=== PATIENT | male | born 1950 | race Caucasian/White ===

== ENCOUNTER 2019-11-22 03:58 | Inpatient (IN) | payer MEDICARE, MEDICAID, SELFPAY ==
[2019-11-22] VITALS (22 sets, daily range): BP systolic 92–122; BP diastolic 60–78; PULSE 93–99; RESP 16–22; TEMP 36.2–37.4; O2SAT 95–99; BMI 22.4
--- NOTE | 2019-11-22 04:03 | XRR_ITS ---
PROCEDURE INFORMATION: Exam: XR Chest, 1 View Exam date and time: 11/22/2019 5:02 AM Age: 69 years old Clinical indication: Chest pain; Type not specified; Additional info: Cough TECHNIQUE: Imaging protocol: XR of the chest Views: 1 view. COMPARISON: CR Chest 1 [place] [id number] 02/20/2018 10:08 AM FINDINGS: Lungs: Hyperinflation. Areas of interstitial thickening of the lower lungs which could be on a chronic basis. Acute area of pneumonitis would be difficult to exclude. Pleural space: Pleural thickening or bilateral pleural effusions. Heart/Mediastinum: The heart size is accentuated. Bones/joints: Osteopenia. Soft tissues: No overt edema. XR/XR chest 1V portable [id number] IMPRESSION: 1. Hyperinflation. 2. Likely partial chronic pleural-parenchymal and interstitial changes of the lower lungs. Accentuated or superimposed areas of acute pneumonitis would not be entirely excluded. 3. Pleural thickening or bilateral pleural effusions. 4. The overall pulmonary changes are without significant interval change since 2017.
--- NOTE | 2019-11-22 04:09 | ECG_ITS ---
Measurements Intervals [place] Rate: 97 P: 35 NV: 169 QRS: 51 QRSD: 88 T: 60 QT: 363 QTc: 462 SINUS RHYTHM POSSIBLE LEFT ATRIAL ENLARGEMENT [-0.1mV P WAVE IN V1/V2] SEPTAL MYOCARDIAL INFARCTION , OF INDETERMINATE AGE [40+ ms Q WAVE IN V1/V2] Compared to ECG 02/20/2018 09:34:40 Myocardial infarct finding now present Electronically Signed On 11-22-2019 18:09:59 CDT by Cj Guzmán M.D. [id number]
--- NOTE | 2019-11-22 04:14 | ED_ITS ---
HPI - General Adult General: Chief complaint: Chest Pain Stated complaint: CP Time Seen by Provider: 11/22/19 04:03 History of Present Illness: HPI narrative: Mr. Ortiz is a 69-year-old male who comes in complaining of chest pain and shortness of breath. He states he is felt this way for the past 2 weeks intermittently. He cannot describe his chest pain other than it hurts . Patient denies any fever, he denies a cough, he states that he is currently on hospice for his COPD. Patient states he just could not get relief tonight and that is why he presented here to the ER. Associated symptoms: Reports chest pain and dyspnea; Deny confusion, diaphoresis, headache(s), malaise, nausea, rash, palpitations, syncope or vomiting Review of Systems General: Reports: other (negative unless marked) Const: Denies: fever, chills, body aches, fatigue, malaise or diaphoresis Eyes: Denies: change in vision or blurry vision ENMT: Denies: throat pain, painful swallowing, hoarseness, ear pain, ear discharge, Change in hearing or nasal discharge Card: Reports: chest pain; Denies: palpitations, irregular heart rhythm, syncope, pre-syncope, shortness of breath on exertion or shortness of breath when lying down Resp: Reports: shortness of breath; Denies: productive cough, non-productive cough, wheezing, coughing up blood or chest congestion GI: Denies: abdominal pain, nausea, vomiting, vomiting blood, coffee grounds in vomit, diarrhea, constipation, cramping, blood in stool or black tarry stool : Denies: flank pain, difficulty urinating, painful urination, urinary frequency, urinary urgency, decreased urine ouput, urinary incontinence or blood in urine Musc: Denies: neck pain, back pain, extremity pain, extremity swelling, joint pain, joint swelling, joint warmth or joint stiffness Skin/Breast: Denies: rash, skin tenderness or yellow skin Neuro: Denies: headache, numbness in extremities, weakness in extremities, changes in sensation, lack of coordination, difficulty walking, dizziness, vertigo or confusion Endo: Denies: excessive thirst, tired all the time, cold intolerance, excessive sweating, flushing or hot flashes Lyle/Lymph: Denies: easy bruising, easy bleeding, petechiae or enlarged lymph nodes All/Imm: Denies: hives, throat swelling, tongue swelling, facial swelling or acute wheezing PFSH ED PFSH: Medical History CKD (chronic kidney disease) Congestive heart failure COPD (chronic obstructive pulmonary disease) CVA (cerebral vascular accident) Diabetes mellitus type 2 in nonobese Hypertension Obstructive sleep apnea Rheumatoid arthritis Social History Smoking and tobacco status: former smoker Physical Exam Const: COMMON NORMALS: oriented x3, no limitations, healthy appearing and well nourished EXAM LIMITATIONS: no altered mental status GENERAL APPEARANCE: cooperative, well kempt and well developed ORIENTATION/CONSCIOUSNESS: Yes awake HENMT: COMMON NORMALS: normocephalic, head/scalp atraumatic, hearing grossly normal bilaterally, external ears normal, EAC's normal, external nose normal and moist oral mucous membranes HEAD & SCALP: normal to inspection, normocephalic and atraumatic FACE & SINUS: normal facial exam and face symmetric NOSE: external nose normal and nares normal EXTERNAL EAR: Yes external ears normal EXTERNAL AUDITORY CANAL: EAC's normal MOUTH: oral and palatal mucosa normal and tongue normal Eye: COMMON NORMALS: PERRL, EOMs intact bilaterally, conjunctivae normal and no scleral icterus GENERAL EYE: normal appearance of both eyes and normal light reflex CONJUNCTIVA: Yes conjunctivae normal SCLERA: sclerae normal CORNEA: Yes corneas normal PUPIL: Yes PERRL DIRECT OPHTHALMOSCOPY: Yes normal light reflex Neck/C-Spine: COMMON NORMALS: full ROM, no lymphadenopathy, supple, no meningeal signs and no JVD GENERAL: Yes normal visual inspection and Yes trachea midline CERVICAL SPINE: Yes cervical ROM normal Chest: COMMONS NORMALS: inspection of chest normal and palpation of chest normal Resp: EFFORT & INSPECTION: Yes uses accessory muscles and Yes paradoxical thoraco-abdominal movements AUSCULTATION: rhonchi and wheezes Cardio: COMMON NORMALS: no JVD, regular rate, regular rhythm, S1 normal heart sound, S2 normal heart sound, no gallops, no clicks, no murmurs and no rub JUGULAR VENOUS DISTENTION: no JVD RATE: regular rate RHYTHM: regular rhythm HEART SOUNDS: S1 normal and S2 normal GI: COMMON NORMALS: soft to palpation, non-tender, no hepatosplenomegaly and no masses INSPECTION: Yes normal to inspection PALPATION: Yes soft and Yes no hepatosplenomegaly : COMMON NORMALS: Yes no CVA tenderness BLADDER/KIDNEY EXAM: Yes no CVA tenderness Back/Pelvis: COMMON NORMALS: no CVA tenderness, thoracic and lumbar spine normal to inspection, no thoracic nor lumbar tenderness and thoraco-lumbar ROM normal Extremity: COMMON NORMALS: normal to inspection, full ROM, normal capillary refill, no joint enlargement, no clubbing, cyanosis or edema and no calf tenderness Neuro: COMMON NORMALS: oriented x3, CN's II-XII intact bilaterally, moves all extremities, no focal motor deficits and no sensory deficits noted MENINGEAL SIGNS: Yes no meningeal signs Psych: COMMON NORMALS: mental status grossly normal, thought process normal, cooperative, affect normal, speech normal and activity/motor behavior normal APPEARANCE: Yes well kempt SPEECH: Yes normal speech THOUGHT PROCESS: normal thought process Skin: COMMON NORMALS: no rashes or lesions noted, skin turgor normal, no jaundice, no petechiae and no mottling GENERAL SKIN EXAM: no rashes or lesions noted and turgor normal Course Vital Signs: Vital signs: Vital Signs Temperature 97.5 F L 11/22/19 04:24 Pulse Rate 98 11/22/19 04:34 Respiratory Rate 20 H 11/22/19 04:34 Blood Pressure 101/76 11/22/19 04:24 Pulse Oximetry 99 11/22/19 04:34 [facility] - General Adult Lab Data: Labs: Lab Results 11/22/19 Range/Units 04:20 WBC 6.0 (4.0-10.0) 10^3/ uL RBC 4.03 L (4.1-5.3) 10^6/u L Hgb 11.3 L (11.7-16.6) g/dL Hct 36.9 L (42.0-52.0) % MCV 91.6 (80-94) fL MCH 28.0 (28.0-34.0) pg MCHC 30.6 (30.0-36.0) g/dL RDW 15.0 (12.1-15.1) % Plt Count 305 (130-400) 10^3/c mm MPV 9.2 (7.4-10.4) fL Neut % (Auto) 63.9 % Lymph % (Auto) 17.2 % [place] % (Auto) 15.2 % Eos % (Auto) 2.3 % Baso % (Auto) 0.7 % Neut # (Auto) 3.8 (1.8-7.7) 10^3/u L Lymph # (Auto) 1.0 (0.8-4.8) 10^3/u L [place] # (Auto) 0.9 (0.2-0.9) 10^3/u L Eos # (Auto) 0.1 (0.0-0.8) 10^3/u L Baso # (Auto) 0.0 (0.0-0.1) 10^3/u L Nucleated RBC % (a uto) 0 % Nucleated RBCs # 0.0 /100WBC Imaging Data^: CXR: My impression: Bilateral pleural effusions. Atelectasis versus bilateral lower lobe infiltrates. EKG Data^: EKG 1: Attestation: I personally reviewed and interpreted this EKG as follows: EKG interpretation date: 11/22/19 EKG interpretation time: 04:15 Interpretation: Normal sinus rhythm at 97 beats a minute, wandering baseline artifact. No acute ST or T wave changes. Coding Level of Care Code ED Rv Mechanic for Eduin Selby
[2019-11-22 04:17] LABS: ABG PCO2 35.4 mmHg (35-45); Arterial Blood Gas Hematocrit 32.4 % (42-52); Base Excess ABG 10.4 mmol/L (-2.0-2.0); Blood Gas Allen Test Pos; Blood Gas Sample Site Brachial, right; Blood Gas Sample Type Arterial; Oxygen Device NC
[2019-11-22] MEDS: ipratropium-albuterol 3 mL Neb INHALATION (04:27)
[2019-11-22 04:36] LABS: Basophils % 0.7 %; Eosinophils # 0.1 10^3/uL (0.0-0.8); Eosinophils % 2.3 %; Hematocrit 36.9 % (42.0-52.0); Hemoglobin 11.3 g/dL (11.7-16.6); Lymphocytes % 17.2 %; Mean Corpuscular HGB Conc 30.6 g/dL (30.0-36.0); Mean Corpuscular Volume 91.6 fL (80-94); Mean Platelet Volume 9.2 fL (7.4-10.4); Monocytes # 0.9 10^3/uL (0.2-0.9); Monocytes % 15.2 %; Neutrophils # 3.8 10^3/uL (1.8-7.7); Neutrophils % 63.9 %; Nucleated Red Blood Cells % 0 %; Platelet Count 305 10^3/cmm (130-400); Red Blood Count 4.03 10^6/uL (4.1-5.3)
[2019-11-22] MEDS: aspirin 81 mg Chew Tablet 324 MG PO (04:49)
[2019-11-22] MEDS: ondansetron 2 mg/ML SDV 2 mL 4 MG IVP (04:50)
[2019-11-22] MEDS: nitroglycerin 0.4 mg sublingual Tablet SUBLINGUAL ×3 (04:50→05:01)
[2019-11-22 05:10] LABS: Alanine Aminotransferase 15 U/L (0-41); Alkaline Phosphatase 75 IU/L (40-130); Anion Gap 23.5 (5-19); Aspartate Amino Transferase 39 U/L (0-40); Blood Urea Nitrogen 35 mg/dL (8-23); Calcium 9.9 mg/dL (8.5-10.5); Carbon Dioxide 32 mmol/L (22-29); Chloride 86 mmol/L (98-107); Globulin 3.8 g/dL (1.3-4.6); Glomerular Filtration Rate 37.7 mL/min (90-130); Glucose 111 mg/dL (65-115); Lipase 70 U/L (13-60); Magnesium 2.2 mg/dL (1.7-2.3); NT Pro B Type Natriuretic Pept 806 pg/mL (0-125); Osmolality Calculated 284 mOsm/kg (285-295); Potassium 3.5 mmol/L (3.5-5.1); Sodium 138 mmol/L (136-145); Total Bilirubin 0.3 mg/dL (0.15-1.2); Total Protein 8.8 g/dL (6.6-8.7)
[2019-11-22 05:13] LABS: Troponin(5th) Baseline 58 ng/mL (0-15)
--- NOTE | 2019-11-22 05:53 | PC.NURSE ---
Date written on Howard catheter from Pt is dated - 09/18/2019 Howard catheter changed to new unit.
[2019-11-22] MEDS: doxycycline 100 mg Tablet 200 MG PO (05:57)
[2019-11-22] MEDS: predniSONE 20 mg Tablet 60 MG PO (05:58)
--- NOTE | 2019-11-22 06:09 | ECG_ITS ---
Measurements Intervals [place] Rate: 101 P: CT: 0 QRS: 50 QRSD: 102 T: -53 QT: 374 QTc: 487 ATRIAL FIBRILLATION WITH RAPID VENTRICULAR RESPONSE NONSPECIFIC T-WAVE ABNORMALITY Compared to ECG 02/20/2018 09:34:40 T-wave abnormality now present Electronically Signed On 11-22-2019 18:13:30 CDT by Cj Guzmán M.D. [id number]
[2019-11-22 07:11] LABS: Bilirubin Urine Neg (NEGATIVE); Blood Urine 2+ (Negative); Glucose Urine UA Norm (Normal); Ketones Urine Negative (Negative); Leukocyte Esterase Urine 2+ (Negative); Nitrate Urine Positive (Negative); Protein Urine Neg (Negative); RBC Urine 15-25 /hpf (0-2); Urine Appearance Cloudy (CLEAR); Urine Color Yellow (Yellow); Urobilinogen Urine Norm (Negative); WBC Urine 80-100 /hpf (0-5); pH Urine 7 (5-7)
[2019-11-22 07:12] LABS: Add Urine Culture? Yes; Bacteria Urine 3+; Squamous Epithelial Cell Urine 0-4 (0-5)
--- NOTE | 2019-11-22 07:31 | PC.NURSE ---
Patient attempting to void in urinal at this time after li removal.
[2019-11-22 07:32] LABS: Troponin 5 2HR 52.46 ng/mL (0-15); Troponin 5 2HR Delta -5.54 ABS# (0-10)
--- NOTE | 2019-11-22 07:42 | W.ED.CHESTPA ---
HPI - Chest Pain General: Chief Complaint: Chest Pain Stated Complaint: CP Time Seen by Provider: 11/22/19 04:03 History of Present Illness: HPI narrative: I assumed care of this patient at shift change. Patient's laboratory data indicates a significant urinary tract infection. Patient will be admitted to the hospital for IV antibiotics. Pt is being admitted for the treatment of the UTI. [facility] ED PFSH: Medical History CKD (chronic kidney disease) Congestive heart failure COPD (chronic obstructive pulmonary disease) CVA (cerebral vascular accident) Diabetes mellitus type 2 in nonobese Hypertension Obstructive sleep apnea Rheumatoid arthritis Social History Smoking and tobacco status: former smoker Course Vital Signs: Vital signs: Vital Signs Temperature 97.5 F L 11/22/19 04:24 Pulse Rate 98 11/22/19 04:34 Respiratory Rate 20 H 11/22/19 04:34 Blood Pressure 96/60 11/22/19 05:50 Pulse Oximetry 96 11/22/19 05:50 MDM - Chest Pain Lab Data: Labs: Lab Results 11/22/19 11/22/19 11/22/19 Range/Units 04:20 04:20 04:20 WBC 6.0 (4.0-10.0) 10^3/ uL RBC 4.03 L (4.1-5.3) 10^6/u L Hgb 11.3 L (11.7-16.6) g/dL Hct 36.9 L (42.0-52.0) % MCV 91.6 (80-94) fL MCH 28.0 (28.0-34.0) pg MCHC 30.6 (30.0-36.0) g/dL RDW 15.0 (12.1-15.1) % Plt Count 305 (130-400) 10^3/c mm MPV 9.2 (7.4-10.4) fL Neut % (Auto) 63.9 % Lymph % (Auto) 17.2 % [place] % (Auto) 15.2 % Eos % (Auto) 2.3 % Baso % (Auto) 0.7 % Neut # (Auto) 3.8 (1.8-7.7) 10^3/u L Lymph # (Auto) 1.0 (0.8-4.8) 10^3/u L [place] # (Auto) 0.9 (0.2-0.9) 10^3/u L Eos # (Auto) 0.1 (0.0-0.8) 10^3/u L Baso # (Auto) 0.0 (0.0-0.1) 10^3/u L Nucleated RBC % (a uto) 0 % Nucleated RBCs # 0.0 /100WBC PT 14.50 H (10.5-13.3) SECO NDS INR 1.10 (0.8-1.2) Sodium 138 (136-145) mmol/L Potassium 3.5 (3.5-5.1) mmol/L Chloride 86 L (98-107) mmol/L Carbon Dioxide 32 H (22-29) mmol/L Anion Gap 23.5 H (5-19) BUN 35 H (8-23) mg/dL Creatinine 1.8 H (0.7-1.2) mg/dL GFR Calculation 37.7 L (90-130) mL/min Glucose 111 (65-115) mg/dL Calculated Osmolal ity 284 L (285-295) mOsm/k g Lactic Acid (0.5-2.2) mmol/L Calcium 9.9 (8.5-10.5) mg/dL Magnesium 2.2 (1.7-2.3) mg/dL Total Bilirubin 0.3 (0.15-1.2) mg/dL AST 39 (0-40) U/L ALT 15 (0-41) U/L Alkaline Phosphata se 75 (40-130) IU/L Troponin T Baselin e (0-15) ng/mL Troponin T 120 Min [place] (0-15) ng/mL Delta Troponin T (0-10) ABS# NT-Pro-B Natriuret Pep 806 H (0-125) pg/mL Total Protein 8.8 H (6.6-8.7) g/dL Albumin 5.0 (3.5-5.2) g/dL Globulin 3.8 (1.3-4.6) g/dL Lipase 70 H (13-60) U/L Urine Color (Yellow) Urine Appearance (CLEAR) Urine pH (5-7) Ur Specific Gravit y (1.005-1.030) Urine Protein (Negative) Urine Glucose (UA) (Normal) Urine Ketones (Negative) Urine Blood (Negative) Urine Nitrate (Negative) Urine Bilirubin (NEGATIVE) Urine Urobilinogen (Negative) mg/dL Ur Leukocyte Shea ase (Negative) Urine RBC (0-2) /hpf Urine WBC (0-5) /hpf Ur Squamous Epith Cells (0-5) Urine Bacteria (NONE) 11/22/19 11/22/19 11/22/19 Range/Units 04:20 06:00 07:03 WBC (4.0-10.0) 10^3/ uL RBC (4.1-5.3) 10^6/u L Hgb (11.7-16.6) g/dL Hct (42.0-52.0) % MCV (80-94) fL MCH (28.0-34.0) pg MCHC (30.0-36.0) g/dL RDW (12.1-15.1) % Plt Count (130-400) 10^3/c mm MPV (7.4-10.4) fL Neut % (Auto) % Lymph % (Auto) % [place] % (Auto) % Eos % (Auto) % Baso % (Auto) % Neut # (Auto) (1.8-7.7) 10^3/u L Lymph # (Auto) (0.8-4.8) 10^3/u L [place] # (Auto) (0.2-0.9) 10^3/u L Eos # (Auto) (0.0-0.8) 10^3/u L Baso # (Auto) (0.0-0.1) 10^3/u L Nucleated RBC % (a uto) % Nucleated RBCs # /100WBC PT (10.5-13.3) SECO NDS INR (0.8-1.2) Sodium (136-145) mmol/L Potassium (3.5-5.1) mmol/L Chloride (98-107) mmol/L Carbon Dioxide (22-29) mmol/L Anion Gap (5-19) BUN (8-23) mg/dL Creatinine (0.7-1.2) mg/dL GFR Calculation (90-130) mL/min Glucose (65-115) mg/dL Calculated Osmolal ity (285-295) mOsm/k g Lactic Acid 2.1 (0.5-2.2) mmol/L Calcium (8.5-10.5) mg/dL Magnesium (1.7-2.3) mg/dL Total Bilirubin (0.15-1.2) mg/dL AST (0-40) U/L ALT (0-41) U/L Alkaline Phosphata se (40-130) IU/L Troponin T Baselin e 58 H (0-15) ng/mL Troponin T 120 Min [place] (0-15) ng/mL Delta Troponin T (0-10) ABS# NT-Pro-B Natriuret Pep (0-125) pg/mL Total Protein (6.6-8.7) g/dL Albumin (3.5-5.2) g/dL Globulin (1.3-4.6) g/dL Lipase (13-60) U/L Urine Color Yellow (Yellow) Urine Appearance Cloudy (CLEAR) Urine pH 7 (5-7) Ur Specific Gravit y 1.000 L (1.005-1.030) Urine Protein Neg (Negative) Urine Glucose (UA) Norm (Normal) Urine Ketones Negative (Negative) Urine Blood 2+ H (Negative) Urine Nitrate Positive H (Negative) Urine Bilirubin Neg (NEGATIVE) Urine Urobilinogen Norm (Negative) mg/dL Ur Leukocyte Shea ase 2+ H (Negative) Urine RBC 15-25 H (0-2) /hpf Urine WBC 80-100 H (0-5) /hpf Ur Squamous Epith Cells 0-4 H (0-5) Urine Bacteria 3+ H (NONE) 11/22/19 Range/Units 07:03 WBC (4.0-10.0) 10^3/ uL RBC (4.1-5.3) 10^6/u L Hgb (11.7-16.6) g/dL Hct (42.0-52.0) % MCV (80-94) fL MCH (28.0-34.0) pg MCHC (30.0-36.0) g/dL RDW (12.1-15.1) % Plt Count (130-400) 10^3/c mm MPV (7.4-10.4) fL Neut % (Auto) % Lymph % (Auto) % [place] % (Auto) % Eos % (Auto) % Baso % (Auto) % Neut # (Auto) (1.8-7.7) 10^3/u L Lymph # (Auto) (0.8-4.8) 10^3/u L [place] # (Auto) (0.2-0.9) 10^3/u L Eos # (Auto) (0.0-0.8) 10^3/u L Baso # (Auto) (0.0-0.1) 10^3/u L Nucleated RBC % (a uto) % Nucleated RBCs # /100WBC PT (10.5-13.3) SECO NDS INR (0.8-1.2) Sodium (136-145) mmol/L Potassium (3.5-5.1) mmol/L Chloride (98-107) mmol/L Carbon Dioxide (22-29) mmol/L Anion Gap (5-19) BUN (8-23) mg/dL Creatinine (0.7-1.2) mg/dL GFR Calculation (90-130) mL/min Glucose (65-115) mg/dL Calculated Osmolal ity (285-295) mOsm/k g Lactic Acid (0.5-2.2) mmol/L Calcium (8.5-10.5) mg/dL Magnesium (1.7-2.3) mg/dL Total Bilirubin (0.15-1.2) mg/dL AST (0-40) U/L ALT (0-41) U/L Alkaline Phosphata se (40-130) IU/L Troponin T Baselin e (0-15) ng/mL Troponin T 120 Min [place] 52.46 H (0-15) ng/mL Delta Troponin T -5.54 L (0-10) ABS# NT-Pro-B Natriuret Pep (0-125) pg/mL Total Protein (6.6-8.7) g/dL Albumin (3.5-5.2) g/dL Globulin (1.3-4.6) g/dL Lipase (13-60) U/L Urine Color (Yellow) Urine Appearance (CLEAR) Urine pH (5-7) Ur Specific Gravit y (1.005-1.030) Urine Protein (Negative) Urine Glucose (UA) (Normal) Urine Ketones (Negative) Urine Blood (Negative) Urine Nitrate (Negative) Urine Bilirubin (NEGATIVE) Urine Urobilinogen (Negative) mg/dL Ur Leukocyte Shea ase (Negative) Urine RBC (0-2) /hpf Urine WBC (0-5) /hpf Ur Squamous Epith Cells (0-5) Urine Bacteria (NONE) Discharge Plan Discharge Patient Disposition: Admitted As Inpatient Clinical Impression: Urinary tract infection associated with indwelling urethral catheter Qualifiers: Encounter type: initial encounter Qualified Code(s): T83.511A - Infection and inflammatory reaction due to indwelling urethral catheter, initial encounter Chest pain Qualifiers: Chest pain type: unspecified Qualified Code(s): R07.9 - Chest pain, unspecified Condition: Fair Referrals: Avel Chacko MD [Family Provider] - Sign Out Sign Out Data: Patient Sign Out occurred on 11/22/19 at 06:08. Patient's care was discussed, and care was transferred from Riya Acosta to Robe Price. Sign Out Comment: Case turned over to Dr. Price at change of shift. Last updated by Riya Acosta at 11/22/19 05:38 Coding Level of Care Code ED Lithographic Press Operator Apprentice for Eduin Selby
[2019-11-22 07:43] LABS: Lactic Sepsis W/Reflex 2.1 mmol/L (0.5-2.2)
[2019-11-22] MEDS: cefTRIAXone 1,000 MG in sodium chloride 0.9% (plus) 50 ML 100 MG IV (07:56)
[2019-11-22 09:02] LABS: Reflex Lactate Order REFLEX LACTIC ORDERD
[2019-11-22 09:13] LABS: ABG PH Result 7.58 (7.35-7.45)
--- NOTE | 2019-11-22 10:21 | USCV_ITS ---
Sarthak Ortiz Age: 69 Gender: M : 1950 Exam Date: 11/22/2019 14:37 Ordering Phys: Anita Heredia DO Technologist: Ezekiel Bueno [place]am Location[place] [facility] [place]ication: CHF,CHEST PAIN BP: 112 / 79 HR: 102 Rhythm: Sinus Technical Quality: Adequate MEASUREMENTS (Male / Female) Normal Values 2D ECHO LV Diastolic Diameter PLAX 3.4 cm 4.2 - 5.9 / 3.9 - 5.3 cm LV Systolic Diameter PLAX 2.0 cm IVS Diastolic Thickness 1.0 cm 0.6 - 1.0 / 0.6 - 0.9 cm IVS Systolic Thickness 1.0 cm LVPW Diastolic Thickness 0.9 cm 0.6 - 1.0 / 0.6 - 0.9 cm LVPW Systolic Thickness 1.2 cm LVOT Diameter 2.1 cm LV Ejection Fraction 2D Teich 70.9 % LV Ejection Fraction MOD 2C 74.3 % LV Ejection Fraction 2C AL 73.5 % LA Diameter 4.3 cm LA Width 3.7 cm LA Height 5.1 cm RA Width 3.8 cm RA Height 5.3 cm M-MODE LV Diastolic Diameter MM 4.1 cm 4.2 - 5.9 / 3.9 - 5.3 cm LV Systolic Diameter MM 2.8 cm LV Ejection Fraction MM Teich 61.2 % IVS Diastolic Thickness MM 1.0 cm 0.6 - 1.0 / 0.6 - 0.9 cm IVS Systolic Thickness MM 1.3 cm LVPW Diastolic Thickness MM 0.9 cm 0.6 - 1.0 / 0.6 - 0.9 cm LVPW Systolic Thickness MM 1.4 cm RV Diastolic Diameter MM 0.9 cm Aortic Annulus Diameter 3.7 cm LA Ao Ratio MM 1.2 MV E Point Septal Separation 0.9 cm DOPPLER AV Peak Velocity 110.0 cm/s LVOT Peak Velocity 99.0 cm/s AV Area Cont Eq vti 3.3 cm squared AV Area Cont Eq pk 3.0 cm squared MV Area PHT 5.0 cm squared Mitral E to A Ratio 1.1 MV E' Velocity 9.0 cm/s Mitral E to MV E' Ratio 4.9 Mitral E to LV E' Lateral Ratio 6.3 Mitral E to LV E' Septal Ratio 4.0 TR Peak Velocity 136.0 cm/s TR Peak Gradient 7.4 mmHg TV Peak E Velocity 88.0 cm/s Right Atrial Pressure 3.0 mmHg Pulmonary Artery Systolic Pressu 10.4 mmHg FINDINGS Left Ventricle Normal left ventricular size and systolic function with no regional wall motion abnormalities. Left ventricular ejection fraction is estimated at 65 %. Abnormal septal motion consistent with conduction abnormality. Normal diastolic function. Right Ventricle Normal right ventricular size and systolic function. Right ventricular systolic pressure 10.4 mmHg. Right Atrium Normal right atrial size. Left Atrium Normal left atrial size. Mitral Valve Structurally normal mitral valve. No mitral valve stenosis. Trace mitral valve regurgitation. Aortic Valve Aortic valve not well visualized. Probably tricuspid aortic valve. No aortic valve stenosis. No aortic valve regurgitation. Tricuspid Valve Structurally normal tricuspid valve. Pulmonic Valve Pulmonic valve not well visualized. No significant pulmonary valve regurgitation. Pericardium No pericardial effusion. Aorta Normal-sized aortic root. CONCLUSIONS 1. Normal left ventricular size and systolic function with no regional wall motion abnormalities. Left ventricular ejection fraction is estimated at 65 %. Abnormal septal motion consistent with conduction abnormality. Normal diastolic function. 2. Normal right ventricular size and systolic function. 3. No significant valvular abnormality. 4. When compared to previous echocardiogram dated 03/07/2017, there may not have been any significant change. Amira Lynch MD (Electronically Signed) Final Date: 22 November 2019 16:20 S
--- NOTE | 2019-11-22 10:22 | PM.HP ---
Providers/Chief Complaint Admitting Physician: Anita Heredia DO Primary Care Provider: Dr. Chacko Chief Complaint: UTI History of Present Illness Sarthak Ortiz is a 69 year old male with a past medical history of congestive heart failure, COPD, rheumatoid arthritis and anemia that presented to the emergency department today for abdominal discomfort and dysuria. He reported that he has been on hospice for the past couple of years. He stated that he is uncertain if he wants to continue with hospice care. Patient has multiple previous admissions for COPD and CHF exacerbations, however has not been hospitalized at our facility for some time. He reports that he has remained on his home oxygen of 5 to 6 L by nasal cannula without any increase. He reports chronic cough with chronic sputum production, no increase or change. He reported that he was getting up to the bathroom today when he began having some sharp discomfort in the center of his chest, given nitroglycerin and pain resolved. He reported that he has been having increasing pain in his Howard catheter for the past 3 days. He stated that he has had this Howard catheter for approximately 2-1/2 months. He reports that he has had a chronic Howard catheter for several years. Patient was seen and evaluated in the emergency department noted to have concern for urinary tract infection. He has chronic Howard catheter but Howard catheter was removed while in the ED due to it being placed for 2-1/2 months, patient has been able to urinate on his own while in the ED. Review of Systems Const: Denies: fever or chills Eyes: Denies: change in vision ENMT: Denies: nasal congestion Card: Reports: chest pain; Denies: palpitations or edema Resp: Reports: shortness of breath (Chronic, unchanged) and productive cough (Chronic, unchanged); Denies: coughing up blood GI: Denies: abdominal pain, nausea, vomiting, diarrhea, constipation, blood in stool or black tarry stool : Reports: painful urination and other (Now that Howard catheter is removed patient reports dysuria. Reported pain with Howard catheter for the past 3 days); Denies: blood in urine Musc: Denies: extremity pain or muscle cramps Skin/Breast: Denies: rash or new lesion Neuro: Denies: headache or dizziness Psych: Denies: anxiety or depression Endo: Denies: excessive urination or hot flashes Lyle/Lymph: Denies: easy bruising or easy bleeding Medications/Allergies Home Medications Medication Instructions Recorded Confirmed Last Taken Type albuterol sulfate 2 puff INHALATION Q6H PRN 11/22/19 11/22/19 Unknown History budesonide-formoterol 1 puff INHALATION BID 11/22/19 11/22/19 Unknown History carvedilol 3.125 mg PO BID 11/22/19 11/22/19 Unknown History docusate sodium 100 mg PO DAILY 11/22/19 11/22/19 Unknown History famotidine 40 mg PO BID 11/22/19 11/22/19 Unknown History furosemide 40 mg PO BID 11/22/19 11/22/19 Unknown History hydroxychloroquine 200 mg PO BID 11/22/19 11/22/19 Unknown History ipratropium bromide 1 ml INHALATION QID PRN 11/22/19 11/22/19 Unknown History lorazepam 0.5 mg PO Q6H PRN 11/22/19 11/22/19 Unknown History metolazone See Rx Instructions .ROUTE .COMPLEX 11/22/19 11/22/19 11/21/19 History potassium chloride [Klor-Con M20] 20 meq PO DAILY 11/22/19 11/22/19 Unknown History prednisone 20 mg PO DAILY 11/22/19 11/22/19 Unknown History sennosides [senna] 8.6 mg PO BID 11/22/19 11/22/19 Unknown History spironolacton-hydrochlorothiaz 1 tab PO DAILY 11/22/19 11/22/19 11/21/19 History sulfasalazine 1 g PO BID 11/22/19 11/22/19 Unknown History umeclidinium [Incruse Ellipta] 1 inh INHALATION DAILY 11/22/19 11/22/19 Unknown History Allergies Allergy/AdvReac Type Severity Reaction Status Date / Time No Known Drug Allergies Allergy Unknown Verified 11/22/19 04:30 PFSH Acute PFSH: Medical History (Updated 11/22/19 @ 10:30 by Anita Heredia DO) CKD (chronic kidney disease) Congestive heart failure COPD (chronic obstructive pulmonary disease) CVA (cerebral vascular accident) Diabetes mellitus type 2 in nonobese Hypertension Obstructive sleep apnea Rheumatoid arthritis Surgical History (Updated 11/22/19 @ 10:26 by Anita Heredia DO) History of inguinal hernia repair History of tonsillectomy Family History (Updated 11/22/19 @ 10:27 by Anita Heredia DO) Father Lung disease Social History (Updated 11/22/19 @ 10:27 by Anita Heredia DO) Smoking and tobacco status: former smoker Alcohol intake: never Substance/Drug Use: never Household members: none Housing: Apartment Supplemental [facility] Information: Patient currently on hospice Vitals/I&O/Wt Last Vital Signs Temp 99.4 F 11/22/19 10:15 Pulse 99 11/22/19 10:15 Resp 22 H 11/22/19 10:15 BP 103/66 11/22/19 10:15 Pulse Ox 99 11/22/19 09:25 11/21/19 11/22/19 11/22/19 22:59 06:59 14:59 Intake Total 50 / 50 Balance 50 / 50 Weight last 48 hrs Weight 64.864 kg Physical Exam Const: COMMON NORMALS: oriented x3 and alert GENERAL APPEARANCE: cooperative ORIENTATION/CONSCIOUSNESS: Yes awake, Yes oriented to person, Yes oriented to place and Yes oriented to time HENMT: COMMON NORMALS: normocephalic and head/scalp atraumatic HEAD & SCALP: normocephalic and atraumatic Eye: COMMON NORMALS: PERRL PUPIL: Yes PERRL Neck/C-Spine: COMMON NORMALS: supple GENERAL: Yes normal visual inspection Resp: EFFORT & INSPECTION: Yes tachypneic and Yes prolonged expiratory phase AUSCULTATION: no rhonchi, no wheezes and diminished lung sounds bilateral OTHER: Faint expiratory wheezing Cardio: COMMON NORMALS: regular rate, regular rhythm and no murmurs RATE: regular rate RHYTHM: regular rhythm GI: COMMON NORMALS: soft to palpation INSPECTION: No abdominal distension AUSCULTATION: Yes normoactive bowel sounds PALPATION: Yes soft and Yes tender (Suprapubic region) : COMMON NORMALS: Yes no CVA tenderness BLADDER/KIDNEY EXAM: Yes no CVA tenderness Back/Pelvis: COMMON NORMALS: no CVA tenderness Extremity: COMMON NORMALS: no clubbing, cyanosis or edema and no calf tenderness Neuro: COMMON NORMALS: oriented x3, CN's II-XII intact bilaterally, moves all extremities and no focal motor deficits SENSORIUM/ORIENTATION: Yes alert, Yes oriented to person, Yes oriented to place and Yes oriented to time SPEECH: speech normal Psych: COMMON NORMALS: mental status grossly normal Urinary Catheter Management^: Howard: Cath Placed During This Visit: yes Urinary Catheter Date of Insertion: 11/22/19 Urinary Catheter Time of Insertion: 05:58 Data : 11/22/19 04:20 11/22/19 04:20 A&P Assessment and plan (1) Acute cystitis: In the setting of chronic Howard catheter placement. Patient reports Howard catheter had not been changed in 2-1/2 months. Howard catheter removed while in the ED, patient has been able to void on his own we will continue to monitor closely with PRN bladder scanning and replacement of Howard catheter if needed Continue on Rocephin Status: Acute (2) CKD (chronic kidney disease): Chronic kidney disease however BUN and creatinine increased from patient's previous baseline. However no labs from the past 2 years, last labs from June 2018. We will continue to monitor renal function closely and caution with any nephrotoxic agents Status: Acute (3) Hypertension: Blood pressure controlled at this time, continue home diuretics, Aldactone, Coreg Status: Acute (4) COPD (chronic obstructive pulmonary disease): End-stage COPD on 6 L of oxygen by nasal cannula at baseline. Patient is currently on hospice for COPD Respiratory therapy to assess and treat, oxygen per protocol Continue with home Symbicort, albuterol Status: Acute (5) Congestive heart failure: Patient with known congestive heart failure, continue on home diuretic regimen. No longer follows with cardiology. Will repeat echocardiogram due to onset of chest pain prior to admission. Serial EKG and troponin. EKG does not show any acute changes at this time and patient is chest pain-free. We will continue to monitor closely. Continue with sodium restriction and fluid restriction Status: Acute Additional A&P Information Patient is currently on hospice due to end-stage COPD, uncertain if he would like to continue with this treatment course. He reported that he is Do Not Resuscitate/DNI but is uncertain how he would like to proceed. Will consult case management Anxiety: Continue Ativan 0.5 mg every 6 hours as needed for anxiety Previously on morphine, reported that he is no longer taking this medication Chronic steroid use: on prednisone 20mg daily DVT prophylaxis: Lovenox Diet: Cardiac diet CODE STATUS: DNR/DNI, this was discussed with patient on admission Attestations Medical Necessity Statement*: Patient requires hospital admission due to concern for urinary tract infection with chronic indwelling Howard catheter, CHF, end-stage COPD. Expected stay greater than 2 midnights Coding Level of Care Code Acute Slabbing Machine Operator for g Fwd Exam Comprehensive Diagnoses Acute cystitis N30.00 CKD (chronic kidney disease) N18.9 Hypertension I10 COPD (chronic obstructive pulmonary disease) J44.9 Congestive heart failure I50.9
[2019-11-22 10:25] LABS: Lactic Acid level (Lactate) 1.7 mmol/L (0.5-2.2)
[2019-11-22 12:37] LABS: Troponin 5 6HR 52.74 ng/mL (0-15)
[2019-11-22] MEDS: albuterol 8 gm MDI 2 PUFF INHALATION (13:35)
[2019-11-22 14:10] LABS: Troponin 5 6HR Delta -5.26 ng/L (0-12)
[2019-11-22] MEDS: hydroxychloroquine 200 mg Tablet PO (18:31)
[2019-11-22] MEDS: enoxaparin 40 mg/0.4 mL Syringe SUBCUT (18:31)
[2019-11-22] MEDS: famotidine 20 mg Tablet 40 MG PO (18:32)
[2019-11-22] MEDS: sulfaSALAzine 500 mg Tablet 1000 MG PO (18:32)
[2019-11-22] MEDS: sennosides 8.6 mg Tablet PO (18:32)
[2019-11-22] MEDS: FUROsemide 40 mg Tablet PO (18:32)
[2019-11-22] MEDS: carvedilol 3.125 mg Tablet PO (18:32)
[2019-11-22] MEDS: LORazepam 0.5 mg Tablet PO (21:25)
[2019-11-22] MEDS: ipratropium 0.5 mg/2.5 mL Neb INHALATION (22:24)
[2019-11-23] VITALS (8 sets, daily range): BP systolic 112–129; BP diastolic 69–80; PULSE 88–105; RESP 18–20; TEMP 36.4–36.7; O2SAT 94–99
[2019-11-23] MEDS: albuterol 8 gm MDI 2 PUFF INHALATION ×2 (04:14→08:52)
[2019-11-23 05:31] LABS: Basophils % 0.6 %; Eosinophils # 0.2 10^3/uL (0.0-0.8); Hematocrit 35.8 % (42.0-52.0); Hemoglobin 11.2 g/dL (11.7-16.6); Lymphocytes # 1.2 10^3/uL (0.8-4.8); Lymphocytes % 16.9 %; Mean Corpuscular HGB Conc 31.3 g/dL (30.0-36.0); Mean Corpuscular Hemoglobin 28.5 pg (28.0-34.0); Mean Corpuscular Volume 91.1 fL (80-94); Mean Platelet Volume 9.1 fL (7.4-10.4); Monocytes # 1.1 10^3/uL (0.2-0.9); Monocytes % 15.7 %; Neutrophils # 4.4 10^3/uL (1.8-7.7); Neutrophils % 63.1 %; Nucleated Red Blood Cells % 0 %; Platelet Count 296 10^3/cmm (130-400); Red Blood Count 3.93 10^6/uL (4.1-5.3); Red Cell Distribution Width 15.4 % (12.1-15.1)
[2019-11-23 05:50] LABS: Anion Gap 19.1 (5-19); Blood Urea Nitrogen 36 mg/dL (8-23); Calcium 9.7 mg/dL (8.5-10.5); Carbon Dioxide 30 mmol/L (22-29); Chloride 89 mmol/L (98-107); Glomerular Filtration Rate 43.2 mL/min (90-130); Glucose 95 mg/dL (65-115); Osmolality Calculated 277 mOsm/kg (285-295); Potassium 3.1 mmol/L (3.5-5.1); Sodium 135 mmol/L (136-145)
[2019-11-23] MEDS: cefTRIAXone 1,000 MG in sodium chloride 0.9% (plus) 50 ML 100 MG IV (07:58)
[2019-11-23] MEDS: carvedilol 3.125 mg Tablet PO (08:04)
[2019-11-23] MEDS: sennosides 8.6 mg Tablet PO (08:05)
[2019-11-23] MEDS: spironolactone 25 mg Tablet PO (08:05)
[2019-11-23] MEDS: predniSONE 20 mg Tablet PO (08:05)
[2019-11-23] MEDS: hydroCHLOROthiazide 25 mg Tablet PO (08:05)
[2019-11-23] MEDS: docusate sodium 100 mg Capsule PO (08:05)
[2019-11-23] MEDS: hydroxychloroquine 200 mg Tablet PO (08:05)
[2019-11-23] MEDS: famotidine 20 mg Tablet 40 MG PO (08:05)
[2019-11-23] MEDS: sulfaSALAzine 500 mg Tablet 1000 MG PO (08:06)
[2019-11-23] MEDS: metOLazone 5 MG Tablet PO (08:14)
[2019-11-23] MEDS: HYDROcodone-acetaminophen 5-325 mg Tablet 1 TAB PO (09:22)
--- NOTE | 2019-11-23 10:04 | PC.CHAP ---
Pastoral Care Encounter/Spiritual Assessment Type of Contact [] Declined brusher tender visit [] Patient/Family/Request visit [] Outpatient visit [] Follow-up visit [] Physician referral [] Code/Alert [x] Routine visit [] Staff referral [] Actively dying [] Patient sleeping [] Family support [] [] Out of room [] Palliative care [] [] Receiving care in room [] Pre-surgical visit [] Trauma [] Long length of stay [] ICU visit [] Other: Relational/Emotional Strength [] Patient feels connected with others/family/visitors/staff [] Distress [] Loneliness/isolation [] Abandonment Spirituality of Patient [] Person of Michelle [] Attends Congregational of their Michelle [] Believes in Prayer [] Reads Bible or Lutheran materials [] There are Spiritual issues to be addressed Director Of Public Works Interventions [x] Prayer [] Active listening [] Non-anxious presence [] Spiritual/emotional support [] Crisis/trauma care [] Spiritual counseling [] Bereavement support [] Provided bereavement packet [] Provided Bible/devotional materials [] Provided toy/stuffed animal, coloring book to patient or family member [] Provided Communion [] Anointing/[place] [] Salvation [x] Completed spiritual assessment [] Other: Impact on Illness or Injury [] Angry [] Fearful [x] Anxious [] Often cries [] Exhaustion [] Unable to work [] Unable to attend scientologist [] Unable to walk/stand [] Unable to read [] Unable to drive [] Unable to eat/drink [] Unable to sleep [] Unable to be with family [] Patient intubated [] Other: Summary Patient having blatter issues, waiting to see doctor. Time spent with patient 10 min
--- NOTE | 2019-11-23 14:15 | PM.DCS ---
Discharge Providers Date of Admission: 11/22/19 07:57 Date of Discharge: November 23, 2019 Attending Provider at Admission: Anita Heredia DO Attending Provider at Discharge: Anita Heredia DO Diagnoses at Discharge Discharge Diagnosis (1) Acute cystitis: Status: Acute (2) CKD (chronic kidney disease): Status: Acute (3) Hypertension: Status: Acute (4) COPD (chronic obstructive pulmonary disease): Status: Acute (5) Congestive heart failure: Status: Acute Reason for Visit Reason for Visit: Reason For Visit: UTI Hospital Course Hospital Course: Patient was seen and evaluated in the emergency department and admitted for further evaluation due to concern for urinary tract infection. Patient has chronic indwelling Howard catheter and has had for 5 years. He reported that it is been 2-1/2 months since his previous Howard catheter change. He reported that he had been at home on hospice and now chooses to revoke his hospice. Patient reported that he has chronic COPD and is typically on 5 to 6 L of oxygen by nasal cannula he denied any increase in oxygen requirements. Patient initially reported that he did not want to have his Howard catheter replaced. He was admitted to the floor for close monitoring due to increase in renal function as well as urinary tract infection in the setting of diastolic CHF and COPD. Patient continued to improve he was up ambulating throughout his room but reported that he had frequent urination and then demanded to have his Howard catheter replaced. On date of discharge patient was awake and alert on his home oxygen by nasal cannula. He reported that he could not get any sleep in the hospital therefore was going to go home today. Discussed with patient that his renal function, although his most recent baseline is unknown due to not being seen in the hospital since 2018, is elevated but he reported that he was certain that he was going to leave the hospital today. Discussed with patient that he is currently diuresing well having adequate oral intake and will plan for discharge with close follow-up on Thursday with his primary care provider. Recommend to have recheck of his renal function at that time. Patient verbalized understanding and agreed with plan. Discussed with patient that he is to return to the hospital for any acute worsening of symptoms. On date of discharge she denied any chest pain, no shortness of breath, no abdominal pain, dysuria had completely resolved according to patient. Physical Exam Const: COMMON NORMALS: oriented x3 and alert GENERAL APPEARANCE: cooperative ORIENTATION/CONSCIOUSNESS: Yes awake, Yes oriented to person, Yes oriented to place and Yes oriented to time HENMT: COMMON NORMALS: normocephalic and head/scalp atraumatic HEAD & SCALP: normocephalic and atraumatic Eye: COMMON NORMALS: PERRL PUPIL: Yes PERRL Neck/C-Spine: COMMON NORMALS: supple GENERAL: Yes normal visual inspection Resp: EFFORT & INSPECTION: Yes tachypneic and Yes prolonged expiratory phase AUSCULTATION: no rhonchi, no wheezes and diminished lung sounds bilateral OTHER: Faint expiratory wheezing Cardio: COMMON NORMALS: regular rate, regular rhythm and no murmurs RATE: regular rate RHYTHM: regular rhythm GI: COMMON NORMALS: soft to palpation and non-tender INSPECTION: No abdominal distension AUSCULTATION: Yes normoactive bowel sounds PALPATION: Yes soft : COMMON NORMALS: Yes no CVA tenderness BLADDER/KIDNEY EXAM: Yes no CVA tenderness Back/Pelvis: COMMON NORMALS: no CVA tenderness Extremity: COMMON NORMALS: no clubbing, cyanosis or edema and no calf tenderness Neuro: COMMON NORMALS: oriented x3, CN's II-XII intact bilaterally, moves all extremities and no focal motor deficits SENSORIUM/ORIENTATION: Yes alert, Yes oriented to person, Yes oriented to place and Yes oriented to time SPEECH: speech normal Psych: COMMON NORMALS: mental status grossly normal Urinary Catheter Management^: Howard: Cath Placed During This Visit: yes Urinary Catheter Date of Insertion: 11/23/19 Urinary Catheter Time of Insertion: 12:07 Discharge Data Data Completed and Pending: Completed Studies During Hospitalization Category Date Time Status XR chest 1V lori ble [id number] Stat Exams 11/22/19 04:03 Completed CV echo complete* [id number] Routine Ultrasound 11/22/19 10:21 Completed Pending at discharge Category Date Time Status Basic Metabolic P jesus AM LABS Lab 11/24/19 04:00 Ordered Basic Metabolic P jesus AM LABS Lab 11/25/19 04:00 Ordered Complete Blood Co unt w/Auto AM LABS Lab 11/24/19 04:00 Ordered Complete Blood Co unt w/Auto AM LABS Lab 11/25/19 04:00 Ordered Urine Culture Sta t Lab 11/22/19 06:00 Results Labs from last 24 hours 04/29/20 04/29/20 05:20 05:20 WBC 7.0 RBC 3.93 L Hgb 11.2 L Hct 35.8 L MCV 91.1 MCH 28.5 MCHC 31.3 RDW 15.4 H Plt Count 296 MPV 9.1 Neut % (Auto) 63.1 Lymph % (Auto) 16.9 [place] % (Auto) 15.7 Eos % (Auto) 3.0 Baso % (Auto) 0.6 Neut # (Auto) 4.4 Lymph # (Auto) 1.2 [place] # (Auto) 1.1 H Eos # (Auto) 0.2 Baso # (Auto) 0.0 Nucleated RBC % (a uto) 0 Nucleated RBCs # 0.0 Sodium 135 L Potassium 3.1 L Chloride 89 L Carbon Dioxide 30 H Anion Gap 19.1 H BUN 36 H Creatinine 1.6 H GFR Calculation 43.2 L Glucose 95 Calculated Osmolal ity 277 L Calcium 9.7 Vitals: Last Vital Signs Temp 97.7 F 11/23/19 11:13 Pulse 102 H 11/23/19 11:13 Resp 20 H 11/23/19 11:13 BP 114/69 11/23/19 11:13 Pulse Ox 94 11/23/19 11:13 Discharge Plan Discharge Patient Disposition: Home Health Service Condition: Fair Prescriptions: New sulfamethoxazole-trimethoprim [Bactrim DS] 800-160 mg tablet 1 tab PO BID 5 Days Qty: 10 RF: 0 Continued senna 8.6 mg tablet 8.6 mg PO BID RF: 0 sulfasalazine 500 mg Tablet 1 g PO BID RF: 0 spironolacton-hydrochlorothiaz 25-25 mg tablet 1 tab PO DAILY RF: 0 famotidine 40 mg tablet 40 mg PO BID RF: 0 prednisone 20 mg Tablet 20 mg PO DAILY RF: 0 metolazone 5 mg tablet See Rx Instructions .ROUTE .COMPLEX RF: 0 carvedilol 3.125 mg tablet 3.125 mg PO BID RF: 0 Klor-Con M20 20 mEq tablet,ER particles/crystals 20 meq PO DAILY RF: 0 lorazepam 0.5 mg tablet 0.5 mg PO Q6H PRN (Reason: Anxiety) RF: 0 docusate sodium 100 mg capsule 100 mg PO DAILY RF: 0 hydroxychloroquine 200 mg tablet 200 mg PO BID RF: 0 albuterol sulfate 90 mcg/actuation HFA aerosol inhaler 2 puff INHALATION Q6H PRN (Reason: Shortness Of Breath) RF: 0 ipratropium bromide 0.02 % solution 1 ml inhalation QID PRN (Reason: Shortness Of Breath) RF: 0 budesonide-formoterol 160-4.5 mcg/actuation HFA aerosol inhaler 1 puff INHALATION BID RF: 0 Incruse Ellipta 62.5 mcg/actuation blister with device 1 inh INHALATION DAILY RF: 0 Changed furosemide 40 mg tablet 40 mg PO DAILY Qty: 0 RF: 0 Discharge Orders: Discharge Order (Routine); Ordered 11/23/19 Ordered By: Anita Heredia Referrals: Avel Chacko MD [Family Provider] - 11/25/19 10:45 am Discharge Diet: Cardiac Discharge Activity: Increase activity as tolerated and As per PT/OT instructions Activity Restrictions/Additional Instructions: Follow-up with your primary care provider as scheduled on Thursday of this week at 10:45 AM. Will need recheck of chemistry panel at that time, BMP. Lasix decreased to once daily Started on Bactrim for urinary tract infection Hospice revoked by patient choice. Orders placed for home health referral Continue with oxygen by nasal cannula, 5 to 6 L Continue with other medications as previously prescribed and as noted Call your physician or present to the ER for any acute illness or concern Discharge Attestations Time Spent in Discharge Care*: greater than 30 min Quality Metrics Clinical Quality Measures During this hospital stay, did patient experience: None Coding Level of Care Code Acute Transmission Superintendent for g Fwd Diagnoses Acute cystitis N30.00 CKD (chronic kidney disease) N18.9 Hypertension I10 COPD (chronic obstructive pulmonary disease) J44.9 Congestive heart failure I50.9
== END 2019-11-23 15:47 | disposition home health service (06) | DRG 699 ==
LOC: ER 08:55 → MEDSURG 08:56
PROVIDERS: Emergency Medicine; Admitting Provider Family Medicine; Emergency Provider Family Medicine; Family Provider Family Medicine; Visit Provider Family Medicine
DX: T83.518A Infection and inflammatory reaction due to other urinary catheter, initial encounter (principal); N30.00 Acute cystitis without hematuria; I13.0 Hypertensive heart and chronic kidney disease with heart failure and stage 1 through stage 4 chronic kidney disease, or unspecified chronic kidney disease; I50.32 Chronic diastolic (congestive) heart failure; Y73.1 Therapeutic (nonsurgical) and rehabilitative gastroenterology and urology devices associated with adverse incidents; N18.9 Chronic kidney disease, unspecified; E11.22 Type 2 diabetes mellitus with diabetic chronic kidney disease; J44.9 Chronic obstructive pulmonary disease, unspecified; M06.9 Rheumatoid arthritis, unspecified; D63.1 Anemia in chronic kidney disease; Z99.81 Dependence on supplemental oxygen; Z96.0 Presence of urogenital implants; Z86.73 Personal history of transient ischemic attack (TIA), and cerebral infarction without residual deficits; G47.33 Obstructive sleep apnea (adult) (pediatric); Z87.891 Personal history of nicotine dependence; Z66 Do not resuscitate; Z79.52 Long term (current) use of systemic steroids
CPT/HCPCS: 12345; 36415; 36600; 51702; 71045; 80048; 80053; 81001; 82803; 83605; 83690; 83735; 83880; 84484; 85025; 85610; 87077; 87086; 87186; 93005; 93306; 94640; 94664; 96372; 96374; 97161; 97165; 97535; 99284; J0696; J1650; J2405; J3535; J7512; J7644

== ENCOUNTER 2020-01-20 04:14 | Inpatient (IN) | payer MEDICARE, MEDICAID, SELFPAY ==
[2020-01-20] VITALS (16 sets, daily range): BP systolic 101–123; BP diastolic 66–92; PULSE 98–106; RESP 17–36; TEMP 36.4–37.2; O2SAT 90–100; BMI 21.4
--- NOTE | 2020-01-20 04:19 | XRR_ITS ---
PROCEDURE INFORMATION: Exam: XR Chest, 1 View Exam date and time: 01/20/2020 5:20 AM Age: 69 years old Clinical indication: Shortness of breath; Additional info: SOB TECHNIQUE: Imaging protocol: XR of the chest Views: 1 view. COMPARISON: CR XR chest 1V portable [id number] 11/22/2019 4:49 AM FINDINGS: Lungs: COPD , bronchiectasis, and interstitial disease. Interval worsening in bibasilar airspace disease. Pleural space: Bilateral pleural effusions . Heart/Mediastinum: Cardiac silhouette upper limits of normal in size. Bones/joints: Osteopenia, degenerative change, and old left clavicular fracture. XR/XR chest 1V portable [id number] IMPRESSION: Interval worsening in bibasilar airspace/pleural disease.
--- NOTE | 2020-01-20 04:19 | ECG_ITS ---
[facility] Test Date: 2020-01-20 Pat Name: Sarthak Ortiz Department: Room: Gender: Male Education Manager: : 1950 Requested By: Juan Orantes Order Number: [id number] Milad MD: Cj Guzmán M.D. Measurements Intervals [place] Rate: 103 P: 40 VT: 186 QRS: 64 QRSD: 101 T: 87 QT: 330 QTc: 432 Interpretive Statements SINUS TACHYCARDIA NONSPECIFIC ST & T-WAVE ABNORMALITY ABNORMAL RHYTHM ECG Compared to ECG 11/22/2019 06:49:22 Atrial fibrillation no longer present T-wave abnormality still present Electronically Signed On 01-20-2020 21:51:09 CDT by Cj Guzmán M.D. [id number]
--- NOTE | 2020-01-20 04:21 | ED_ITS ---
HPI - SOB/Dyspnea General: Chief Complaint: Shortness of Breath/Dyspnea Stated Complaint: DIFFICULTY BREATHING Time Seen by Provider: 01/20/20 04:19 Source: patient and EMS Mode of arrival: EMS Limitations: no limitations History of Present Illness: HPI Narrative: 69-year-old male who has a long history of CHF and COPD is [facility]. Patient states he has had increasing shortness of breath over the last 2 weeks. He states it is worse when he is tried to get up. He denies any chest pain. He states he has had low-grade fevers at home. He denies any cough. MD elicited complaint: shortness of breath Associated symptoms: Deny abdominal pain, chest pain, fever(s), nausea or vomiting Review of Systems Const: Denies: fever(s), chills, body aches or change in appetite Eyes: Denies: blurry vision or eye discomfort ENMT: Denies: throat pain or dental pain Card: Denies: chest pain Resp: Reports: dyspnea and wheezing GI: Denies: abdominal pain, nausea, vomiting or diarrhea : Denies: dysuria Musc: Denies: neck pain or back pain Skin/Breast: Denies: rash Neuro: Denies: headache(s) Psych: Denies: depression Lyle/Lymph: Denies: easy bruising All/Imm: Denies: urticaria PFSH ED PFSH: Medical History CKD (chronic kidney disease) Congestive heart failure COPD (chronic obstructive pulmonary disease) CVA (cerebral vascular accident) Diabetes mellitus type 2 in nonobese Hypertension Obstructive sleep apnea Rheumatoid arthritis Surgical History History of inguinal hernia repair History of tonsillectomy Family History Father Lung disease Social History Smoking and tobacco status: former smoker Alcohol intake: never Household members: none Housing: Apartment Physical Exam Const: COMMON NORMALS: patient oriented x3 and healthy appearing GENERAL APPEARANCE: in distress and ill appearing HENMT: COMMON NORMALS: normocephalic and atraumatic HEAD & SCALP: normocephalic and atraumatic Eye: COMMON NORMALS: Equal, round and reactive pupils present and EOMs intact bilaterally PUPIL: Yes Equal, round and reactive pupils present Neck/C-Spine: COMMON NORMALS: full ROM and supple Chest: COMMONS NORMALS: normal inspection of the chest and normal palpation of entire chest wall Resp: COMMON NORMALS: No retractions and No use of accessory muscles EFFORT & INSPECTION: Yes respiratory distress (mild) AUSCULTATION: wheezes Cardio: COMMON NORMALS: regular rate, regular rhythm and No murmurs present (Cardio) RATE: regular rate RHYTHM: regular rhythm GI: COMMON NORMALS: Normal to inspection, nondistended, normoactive bowel sounds present, Soft to palpation, non-tender and no masses PALPATION: Yes Soft to palpation Extremity: COMMON NORMALS: normal to inspection and full ROM Neuro: COMMON NORMALS: patient oriented x3, moves all extremities and no focal motor deficits Psych: COMMON NORMALS: mental status grossly normal, Normal thought process present and cooperative THOUGHT PROCESS: Normal thought process present Skin: COMMON NORMALS: no rashes or lesions noted and no wounds GENERAL SKIN EXAM: no rashes or lesions noted Course Vital Signs: Vital signs: Vital Signs Temperature 98.3 F 01/20/20 04:15 Pulse Rate 103 H 01/20/20 05:27 Respiratory Rate 18 01/20/20 05:27 Blood Pressure 118/82 01/20/20 05:27 Pulse Oximetry 100 01/20/20 05:27 MDM - SOB/Dyspnea MDM Narrative: Medical decision making narrative: Patient presents here with cough along with low-grade fevers at home and x-ray with bilateral lower lobe pneumonia. Patient also has CHF with likely CHF exacerbation. He does have hypercapnia but is breathing well here. Patient given IV Lasix along with IV antibiotics. I spoke to hospitalist Dr. Cardona and will admit. Patient has been stable while in the ER. Lab Data: Labs: Lab Results 01/20/20 01/20/20 01/20/20 Range/Units 04:28 04:28 04:28 WBC 6.0 (4.0-10.0) 10^3/ uL RBC 3.13 L (4.1-5.3) 10^6/u L Hgb 8.4 L (11.7-16.6) g/dL Hct 28.7 L (42.0-52.0) % MCV 91.7 (80-94) fL MCH 26.8 L (28.0-34.0) pg MCHC 29.3 L (30.0-36.0) g/dL RDW 15.0 (12.1-15.1) % Plt Count 229 (130-400) 10^3/c mm MPV 9.3 (7.4-10.4) fL Neut % (Auto) 62.3 % Lymph % (Auto) 13.8 % [place] % (Auto) 17.6 % Eos % (Auto) 5.3 % Baso % (Auto) 0.7 % Neut # (Auto) 3.7 (1.8-7.7) 10^3/u L Lymph # (Auto) 0.8 (0.8-4.8) 10^3/u L [place] # (Auto) 1.1 H (0.2-0.9) 10^3/u L Eos # (Auto) 0.3 (0.0-0.8) 10^3/u L Baso # (Auto) 0.0 (0.0-0.1) 10^3/u L Nucleated RBC % (a uto) 0 % Nucleated RBCs # 0.0 /100WBC PT 15.20 H (10.5-13.3) SECO NDS INR 1.16 (0.8-1.2) Specimen Type Sample Site ABG pH (7.35-7.45) ABG pCO2 (35-45) mmHg ABG pO2 (80.0-100.0) mmH g ABG HCO3 (22-26) mmol/L ABG Base Excess (-2.0-2.0) mmol/ L Aleksey Test Hematocrit (42-52) % Hgb O2 Saturation (95-100) % Carboxyhemoglobin (0.4-20.1) %THgb Methemoglobin (0.4-1.5) % Total Hemoglobin (14-18) g/dL O2 Delivery Device O2 Liters/Min % Yield Improvement Engineer ID Sodium 140 (136-145) mmol/L Chloride 85 L (98-107) mmol/L Anion Gap 13.9 (5-19) BUN 35 H (8-23) mg/dL Creatinine 1.4 H (0.7-1.2) mg/dL GFR Calculation 50.4 L (90-130) mL/min Glucose 108 (65-115) mg/dL Calculated Osmolal ity 288 (285-295) mOsm/k g Calcium 9.0 (8.5-10.5) mg/dL Total Bilirubin 0.3 (0.15-1.2) mg/dL AST 25 (0-40) U/L ALT 12 (0-41) U/L Alkaline Phosphata se 79 (40-130) IU/L NT-Pro-B Natriuret Pep 1183 H (0-125) pg/mL Total Protein 7.3 (6.6-8.7) g/dL Albumin 4.4 (3.5-5.2) g/dL Globulin 2.9 (1.3-4.6) g/dL 01/20/20 Range/Units 04:42 WBC (4.0-10.0) 10^3/ uL RBC (4.1-5.3) 10^6/u L Hgb (11.7-16.6) g/dL Hct (42.0-52.0) % MCV (80-94) fL MCH (28.0-34.0) pg MCHC (30.0-36.0) g/dL RDW (12.1-15.1) % Plt Count (130-400) 10^3/c mm MPV (7.4-10.4) fL Neut % (Auto) % Lymph % (Auto) % [place] % (Auto) % Eos % (Auto) % Baso % (Auto) % Neut # (Auto) (1.8-7.7) 10^3/u L Lymph # (Auto) (0.8-4.8) 10^3/u L [place] # (Auto) (0.2-0.9) 10^3/u L Eos # (Auto) (0.0-0.8) 10^3/u L Baso # (Auto) (0.0-0.1) 10^3/u L Nucleated RBC % (a uto) % Nucleated RBCs # /100WBC PT (10.5-13.3) SECO NDS INR (0.8-1.2) Specimen Type Arterial Sample Site Brachial, right ABG pH 7.49 H (7.35-7.45) ABG pCO2 63.9 H* (35-45) mmHg ABG pO2 80.0 (80.0-100.0) mmH g ABG HCO3 48.4 H (22-26) mmol/L ABG Base Excess 22.2 H (-2.0-2.0) mmol/ L Aleksey Test N/a Hematocrit 28.1 L (42-52) % Hgb O2 Saturation 94.0 L (95-100) % Carboxyhemoglobin 1.0 (0.4-20.1) %THgb Methemoglobin 0.9 (0.4-1.5) % Total Hemoglobin 9.2 L (14-18) g/dL O2 Delivery Device Nc O2 Liters/Min 5.0 % Yield Improvement Engineer ID [email or web address] Sodium (136-145) mmol/L Chloride (98-107) mmol/L Anion Gap (5-19) BUN (8-23) mg/dL Creatinine (0.7-1.2) mg/dL GFR Calculation (90-130) mL/min Glucose (65-115) mg/dL Calculated Osmolal ity (285-295) mOsm/k g Calcium (8.5-10.5) mg/dL Total Bilirubin (0.15-1.2) mg/dL AST (0-40) U/L ALT (0-41) U/L Alkaline Phosphata se (40-130) IU/L NT-Pro-B Natriuret Pep (0-125) pg/mL Total Protein (6.6-8.7) g/dL Albumin (3.5-5.2) g/dL Globulin (1.3-4.6) g/dL Imaging Data^: CXR: Attestation: I personally reviewed and interpreted this imaging study as follows: My impression: bilateral lower lobe pneumonia EKG Data^: EKG 1: Attestation: I personally reviewed and interpreted this EKG as follows: EKG Interpretation Date: 01/20/20 EKG interpretation time: 04:42 Interpretation: sinus tach hr [address] and t wave abnormalities qrs 101 qtc 389 Discharge Plan Discharge Patient Disposition: Admitted As Inpatient Admit Provider: Cj Washington Clinical Impression: Community acquired pneumonia Qualifiers: Laterality: unspecified laterality Qualified Code(s): J18.9 - Pneumonia, unspecified organism Congestive heart failure Qualifiers: Heart failure type: unspecified Heart failure chronicity: acute on chronic Qualified Code(s): I50.9 - Heart failure, unspecified Condition: Stable Referrals: Avel Chacko MD [Primary Care Provider] - Coding Level of Care Code ED Kiln Transfer Operator for g Fwd Exam Comprehensive
[2020-01-20 04:32] LABS: Basophils % 0.7 %; Eosinophils # 0.3 10^3/uL (0.0-0.8); Eosinophils % 5.3 %; Hematocrit 28.7 % (42.0-52.0); Hemoglobin 8.4 g/dL (11.7-16.6); Lymphocytes # 0.8 10^3/uL (0.8-4.8); Lymphocytes % 13.8 %; Mean Corpuscular HGB Conc 29.3 g/dL (30.0-36.0); Mean Corpuscular Hemoglobin 26.8 pg (28.0-34.0); Mean Corpuscular Volume 91.7 fL (80-94); Mean Platelet Volume 9.3 fL (7.4-10.4); Monocytes # 1.1 10^3/uL (0.2-0.9); Monocytes % 17.6 %; Neutrophils # 3.7 10^3/uL (1.8-7.7); Neutrophils % 62.3 %; Nucleated Red Blood Cells % 0 %; Platelet Count 229 10^3/cmm (130-400); Red Blood Count 3.13 10^6/uL (4.1-5.3)
[2020-01-20 04:43] LABS: INR 1.16 (0.8-1.2)
[2020-01-20] MEDS: ipratropium-albuterol 3 mL Neb INHALATION (04:50)
[2020-01-20 04:54] LABS: ABG PCO2 63.9 mmHg (35-45); ABG PH Result 7.49 (7.35-7.45); Arterial Blood Gas Hematocrit 28.1 % (42-52); Base Excess ABG 22.2 mmol/L (-2.0-2.0); Blood Gas Sample Site Brachial, right; Blood Gas Sample Type Arterial; HCO3 ABG 48.4 mmol/L (22-26); Methemoglobin 0.9 % (0.4-1.5); Oxygen Device NC; Total Hemoglobin 9.2 g/dL (14-18)
[2020-01-20 04:59] LABS: Alanine Aminotransferase 12 U/L (0-41); Albumin Level 4.4 g/dL (3.5-5.2); Alkaline Phosphatase 79 IU/L (40-130); Anion Gap 13.9 (5-19); Aspartate Amino Transferase 25 U/L (0-40); Blood Urea Nitrogen 35 mg/dL (8-23); Chloride 85 mmol/L (98-107); Globulin 2.9 g/dL (1.3-4.6); Glomerular Filtration Rate 50.4 mL/min (90-130); Glucose 108 mg/dL (65-115); NT Pro B Type Natriuretic Pept 1183 pg/mL (0-125); Osmolality Calculated 288 mOsm/kg (285-295); Sodium 140 mmol/L (136-145); Total Bilirubin 0.3 mg/dL (0.15-1.2); Total Protein 7.3 g/dL (6.6-8.7)
[2020-01-20] MEDS: FUROsemide 10 mg/mL SDV 4mL 40 MG IVP (05:23)
[2020-01-20] MEDS: cefTRIAXone 1,000 MG in sodium chloride 0.9% (plus) 50 ML 100 MG IV (05:27)
[2020-01-20 05:37] LABS: Carbon Dioxide 44 mmol/L (22-29); Potassium 2.9 mmol/L (3.5-5.1)
--- NOTE | 2020-01-20 05:39 | PC.NURSE ---
lab called with critical CO2 of 44 and potassium 2.9, notified Dr. Orantes, no orders given at this time
--- NOTE | 2020-01-20 05:40 | P.HP_ITS ---
Providers/Chief Complaint Admitting Physician: Cj Washington MD Primary Care Provider: Avel Chacko MD Chief Complaint: DIFFICULTY BREATHING History of Present Illness Sarthak Ortiz is a 69 year old male who carries a history of oxygen dependent advanced COPD 5-6 L [id number], rheumatoid arthritis, chronic anemia, chronic indwelling Howard catheter, recently revoked home hospice, in October was discharged on Bactrim for UTI, coming in today with chief complaint of worsening shortness of breath. Patient is a very poor historian, he is stating that he lives in an apartment and gets help from home health services, lately he has been experiencing more shortness of breath associated with orthopnea, PND, shortness of breath is on exertion and at rest, he does not use CPAP for his sleep apnea, he is stating that he is compliant with all of his medications but not able to tell me the names. He is also endorsing fresh bleed per rectum whenever he wipes himself he notices fresh streaks of blood. He has been noticing more swelling of his lower extremities. Today he was feeling more lethargic, he was experiencing chills, his axillary temperature was 101. He decided to come to the ED for further evaluation for his worsening shortness of breath and fever. He has not been exposed to any COVID carrier. Diagnostics in the ER revealed tachycardia, normal oxygenation on 5 L nasal cannula, he is afebrile, Chest x-ray revealed bilateral pleural effusion with concerning right lower lobe pneumonia, COVID has been ordered in the ER, he has received ceftriaxone, azithr omycin and IV Lasix His blood gases showing overcompensated respiratory alkalosis, he is refusing Bi PAP which was recommended to decrease work of breathing BNP is 1183, clinical signs of fluid overload as well Is not able to tell me why Howard catheter was placed Review of Systems Const: Reports: fever(s), chills, body aches and fatigue Eyes: Denies: change in vision ENMT: Denies: throat pain Card: Reports: edema, swelling of feet/ankles, dyspnea on exertion and orthopnea; Denies: chest pain or palpitations Resp: Reports: dyspnea and productive cough GI: Denies: abdominal pain or nausea : Denies: flank pain Musc: Reports: limited range of motion and decrease in muscle mass Skin/Breast: Denies: rash Neuro: Denies: headache(s) Psych: Denies: anxiety Endo: Denies: polyuria Lyle/Lymph: Denies: easy bruising All/Imm: Denies: urticaria Medications/Allergies Home Medications Medication Instructions Recorded Confirmed Last Taken Type Incruse Ellipta 1 inh INHALATION DAILY 11/22/19 11/22/19 Unknown History Klor-Con M20 20 meq PO DAILY 11/22/19 11/22/19 Unknown History albuterol sulfate 2 puff INHALATION Q6H PRN 11/22/19 11/22/19 Unknown History budesonide-formoterol 1 puff INHALATION BID 11/22/19 11/22/19 Unknown History carvedilol 3.125 mg PO BID 11/22/19 11/22/19 Unknown History docusate sodium 100 mg PO DAILY 11/22/19 11/22/19 Unknown History famotidine 40 mg PO BID 11/22/19 11/22/19 Unknown History hydroxychloroquine 200 mg PO BID 11/22/19 11/22/19 Unknown History ipratropium bromide 1 ml INHALATION QID PRN 11/22/19 11/22/19 Unknown History lorazepam 0.5 mg PO Q6H PRN 11/22/19 11/22/19 Unknown History metolazone See Rx Instructions .ROUTE .COMPLEX 11/22/19 11/22/19 11/21/19 History prednisone 20 mg PO DAILY 11/22/19 11/22/19 Unknown History senna 8.6 mg PO BID 11/22/19 11/22/19 Unknown History spironolacton-hydrochlorothiaz 1 tab PO DAILY 11/22/19 11/22/19 11/21/19 History sulfasalazine 1 g PO BID 11/22/19 11/22/19 Unknown History furosemide 40 mg PO DAILY #0 tab 11/23/19 11/22/19 Unknown Rx Allergies Allergy/AdvReac Type Severity Reaction Status Date / Time No Known Drug Allergies Allergy Unknown Verified 01/20/20 04:37 PFSH Acute PFSH: Medical History CKD (chronic kidney disease) Congestive heart failure COPD (chronic obstructive pulmonary disease) CVA (cerebral vascular accident) Diabetes mellitus type 2 in nonobese Hypertension Normocytic anemia Obstructive sleep apnea Rheumatoid arthritis Surgical History History of inguinal hernia repair History of tonsillectomy Family History Father Lung disease Social History (Updated 01/20/20 @ 06:40 by Cj Washington MD) Smoking and tobacco status: former smoker Alcohol intake: never Substance/Drug Use: never Household members: none Housing: Apartment Vitals/I&O/Wt Last Vital Signs Temp 98.3 F 01/20/20 04:15 Pulse 103 H 01/20/20 05:27 Resp 18 01/20/20 05:27 BP 118/82 01/20/20 05:27 Pulse Ox 100 01/20/20 05:27 Weight last 48 hrs Weight 63.957 kg Physical Exam Narrative: EXAM NARRATIVE: Head to toe examination Emaciated and malnourished appearance Patient is using his respiratory accessory muscles Refusing BiPAP Sinus tachycardia, with active throughout the congestive heart failure Bilateral lower extremity 2+ pitting edema Has indwelling Howard catheter draining yellow clear urine Abdomen is soft nontender nondistended bowel sound present Neurologically nonfocal exam No asterixis EOMI, PERRLA He is keeping his nasal cannula in his mouth Awake alert oriented x3 GCS 15 Seems to have poor insight into his medical condition Flat affect Data : 01/20/20 04:28 01/20/20 04:28 A&P Assessment and plan (1) Community acquired pneumonia: Status: Acute Qualifiers: Laterality: unspecified laterality Qualified Code(s): J18.9 - Pneumonia, unspecified organism (2) Congestive heart failure: Status: Acute Qualifiers: Heart failure chronicity: acute on chronic Heart failure type: unspecified Qualified Code(s): I50.9 - Heart failure, unspecified (3) CKD (chronic kidney disease): Status: Acute (4) Obstructive sleep apnea: Status: Acute (5) Normocytic anemia: Status: Acute Additional A&P Information Community-acquired pneumonia Right lower lobe infiltrate Patient is endorsing temperature 101 at home Not septic on admission Blood gases showing respiratory alkalosis Patient is refusing BiPAP which was recommended to decrease work of breathing COVID ordered by ER physician Urine antigens ordered I would use ceftriaxone and azithromycin Blood cultures sent Review of records revealed that patient has chronic right lower lobe density wh ich was deemed secondary to atelectasis and with current bilateral pleural effusion is hard to differentiate, I would obtain d-dimer to rule out PE as well Preserved ejection fraction heart failure Recent echo revealed normal ejection fraction without diastolic dysfunction however he has clinical signs of fluid overload, high BNP 1183 I would not repeat echo at this time, echo was done on 11/21 Would use Bumex instead of Lasix Review of records revealed that he was transferred to [facility] in the past for resistant hypervolemia Chronic kidney disease stage II No active decompensation, his creatinine seems to be around baseline Hypokalemia most likely due to alkalosis Potassium replete Check phosphorus level Acute on chronic normocytic anemia Patient is endorsing bright bleed per rectum and is endorsing history of hemorrhoids Would avoid DVT prophylaxis with anticoagulation Another H&H around 11 AM End-stage COPD Patient revoked his home hospice Currently on 5 to 6 L of oxygen, prominent muscle mass loss Seems to have poor insight to his comorbid condition Untreated obstructive sleep apnea with bicarb around 44, patient is noncompliant with his CPAP Full code DVT prophylaxis contraindicated because of active anemia Cardiac diet He is high risk for intubation, I am afraid he will develop respiratory muscle fatigue, currently refusing BiPAP, will obtain another blood gas around 11 AM Attestations Medical Necessity Statement*: Anticipating stay in the hospital cross more than 2 midnights continued management for community-acquired pneumonia, CHF and active anemia Carries a guarded prognosis, needs to rule out COVID as well Time Spent in Patient Care: (>than 50% of time spent in counselling and/or direct pt care on unit) . 60 minutes Coding Level of Care Code Acute Regional Facilities Specialist for Eduin Selby Diagnoses Community acquired pneumonia J18.9 Laterality: unspecified laterality Congestive heart failure I50.9 Heart failure chronicity: acute on chronic Heart failure type: unspecified CKD (chronic kidney disease) N18.9 Obstructive sleep apnea G47.33 Normocytic anemia D64.9
[2020-01-20] MEDS: potassium chloride ER 10 mEq Tablet 40 MEQ PO (05:43)
[2020-01-20] MEDS: azithromycin 500 MG in sodium chloride 0.9% 250 ML 250 MG IV (06:02)
[2020-01-20 07:29] LABS: Phosphorus 2.8 mg/dL (2.5-4.5)
--- NOTE | 2020-01-20 08:29 | PC.NURSE ---
Addendum entered by Melanie Thomason RN 01/20/20 08:33: Patient gave me [facility] home health number as well [phone]. Addendum entered by Melanie Thomason RN 01/20/20 08:32: Patient states we can also call his nurse to get his medication list BENI Krishnan [phone]. Original Note: Patient states that we will need to call his pharmacy to get his home medication list.
--- NOTE | 2020-01-20 08:37 | PC.NURSE ---
Patient arrived to the floor from the ED at 0645 after report was received via phone. Patient is alert and oriented x4. Patient has been oriented to his room and has call light within reach. Will continue to monitor.
[2020-01-20] MEDS: albuterol 8 gm MDI 2 PUFF INHALATION ×4 (09:04→20:22)
[2020-01-20] MEDS: sulfaSALAzine 500 mg Tablet 1000 MG PO ×2 (09:39→18:01)
[2020-01-20] MEDS: sennosides 8.6 mg Tablet PO ×2 (09:39→18:01)
[2020-01-20] MEDS: predniSONE 20 mg Tablet PO (09:39)
[2020-01-20] MEDS: hydroxychloroquine 200 mg Tablet PO ×2 (09:39→18:01)
[2020-01-20] MEDS: hydroCHLOROthiazide 25 mg Tablet PO (09:40)
[2020-01-20] MEDS: carvedilol 3.125 mg Tablet PO ×2 (09:40→18:01)
[2020-01-20] MEDS: spironolactone 25 mg Tablet PO (09:41)
[2020-01-20] MEDS: bumetanide 0.25 mg/mL SDV 10 mL 1 MG IV ×2 (10:01→21:01)
[2020-01-20] MEDS: pantoprazole 40 mg SDV IVP ×2 (10:01→21:05)
[2020-01-20] MEDS: potassium chloride premix 40 MEQ/100 ML PREMIX 25 MEQ IV (10:02)
[2020-01-20] MEDS: sodium chloride 0.9% (100 ml) 100 ML 20 ML (10:23)
--- NOTE | 2020-01-20 10:57 | PC.CHAP ---
Pastoral Care Encounter/Spiritual Assessment Type of Contact [] Declined coal cutting machine operator visit [] Patient/Family/Request visit [] Outpatient visit [] Follow-up visit [] Physician referral [] Code/Alert [] Routine visit [] Staff referral [] Actively dying [] Patient sleeping [] Family support [] [] Out of room [] Palliative care [] [] Receiving care in room [] Pre-surgical visit [] Trauma [] Long length of stay [] ICU visit [x] Other: Isolated Relational/Emotional Strength [] Patient feels connected with others/family/visitors/staff [] Distress [] Loneliness/isolation [] Abandonment Spirituality of Patient [] Person of Michelle [] Attends Synagogue of their Michelle [] Believes in Prayer [] Reads Bible or Sikh materials [] There are Spiritual issues to be addressed Home Health Care Case Manager Interventions [] Prayer [] Active listening [] Non-anxious presence [] Spiritual/emotional support [] Crisis/trauma care [] Spiritual counseling [] Bereavement support [] Provided bereavement packet [] Provided Bible/devotional materials [] Provided toy/stuffed animal, coloring book to patient or family member [] Provided Communion [] Anointing/[place] [] Salvation [x] Completed spiritual assessment [] Other: Impact on Illness or Injury [] Angry [] Fearful [] Anxious [] Often cries [] Exhaustion [] Unable to work [] Unable to attend episcopalian [] Unable to walk/stand [] Unable to read [] Unable to drive [] Unable to eat/drink [] Unable to sleep [] Unable to be with family [] Patient intubated [] Other: Summary Time spent with patient
[2020-01-20 11:05] LABS: ABG PCO2 54.8 mmHg (35-45); ABG PH Result 7.52 (7.35-7.45); Arterial Blood Gas Hematocrit 25.9 % (42-52); Base Excess ABG 19.1 mmol/L (-2.0-2.0); Blood Gas Allen Test Pos; Blood Gas Sample Site Radial, right; Blood Gas Sample Type Arterial; HCO3 ABG 44.2 mmol/L (22-26); Oxygen Device NC
[2020-01-20 11:15] LABS: Hematocrit 26.5 % (42.0-52.0); Hemoglobin 7.9 g/dL (11.7-16.6)
--- NOTE | 2020-01-20 13:53 | PC.RESP ---
Pulmonary Rehab information sent to patient.
--- NOTE | 2020-01-20 14:10 | P.PN_ITS ---
Subjective Subjective: Interval history: This morning patient states that his breathing has improved, no chest pain, no lightheadedness, no dizziness, no nausea, no vomiting, is able to get up out of bed on his own Vitals/I&O/Wt Last Vital Signs Temp 98.9 F 01/20/20 08:00 Pulse 102 H 01/20/20 12:26 Resp 18 01/20/20 12:26 BP 107/79 01/20/20 08:00 Pulse Ox 96 01/20/20 12:26 01/19/20 01/20/20 01/20/20 22:59 06:59 14:59 Intake Total 50 / 50 750 / 750 Output Total 1300 / 1300 Balance 50 / 50 -550 / -550 Weight last 48 hrs Weight 63.957 kg Physical Exam Const: COMMON NORMALS: no acute distress and patient oriented x3 HENMT: COMMON NORMALS: normocephalic HEAD & SCALP: normocephalic Neck/C-Spine: COMMON NORMALS: no JVD Resp: COMMON NORMALS: normal respiratory effort, No retractions, No use of accessory muscles and clear to auscultation bilaterally AUSCULTATION: clear to auscultation bilaterally Cardio: COMMON NORMALS: no JVD, regular rate, regular rhythm, S1 normal heart sound present and S2 normal heart sound present RATE: regular rate RHYTHM: regular rhythm HEART SOUNDS: S1 normal heart sound present and S2 normal heart sound present GI: COMMON NORMALS: Normal to inspection, nondistended, normoactive bowel sounds present, Soft to palpation, non-tender, No hepatosplenomegaly present, no masses and no bruits PALPATION: Yes Soft to palpation and Yes No hepatosplenomegaly present Extremity: COMMON NORMALS: capillary refill normal, no clubbing, cyanosis or edema, no calf tenderness and no pedal edema Neuro: COMMON NORMALS: patient oriented x3 Psych: COMMON NORMALS: mental status grossly normal Data : 01/20/20 11:02 01/20/20 04:28 Micro: Microbiology 01/20/20 05:25 Blood Culture - Preliminary Blood SPECIMEN COLLECTED 01/20/20 04:30 Blood Culture - Preliminary Blood SPECIMEN COLLECTED A&P Assessment and plan (1) Community acquired pneumonia: Status: Acute Qualifiers: Laterality: unspecified laterality Qualified Code(s): J18.9 - Pneumonia, unspecified organism (2) Congestive heart failure: Status: Acute Qualifiers: Heart failure chronicity: acute on chronic Heart failure type: unspecified Qualified Code(s): I50.9 - Heart failure, unspecified (3) CKD (chronic kidney disease): Status: Acute (4) Obstructive sleep apnea: Status: Acute (5) Normocytic anemia: Status: Acute Additional A&P Information Acute hypoxic respiratory failure secondary to pneumonia and diastolic heart failure Community-acquired pneumonia Right lower lobe infiltrate Patient is endorsing temperature 101 at home Not septic on admission Blood gases showing respiratory alkalosis, and metabolic alkalosis likely secondary to heart failure, Lasix therapy, pulmonary edema, chronic compensation for end-stage COPD Patient is refusing BiPAP which was recommended to decrease work of breathing COVID ordered by ER physician Urine antigens ordered Continue Rocephin and azithromycin Blood cultures sent Would likely benefit from a CT angios of his chest once COVID-19 is negative Slow GI bleed Hemoglobin down to 7.9 No bloody or black stools -We will do iron studies - Protonix 40 twice daily -Trend hemoglobins hold anticoagulation, SCDs for DVT prophylaxis -Continue to monitor clinically Preserved ejection fraction heart failure Recent echo revealed normal ejection fraction without diastolic dysfunction however he has clinical signs of fluid overload, high BNP 1183 I would not repeat echo at this time, echo was done on 11/21 Bumex 1 mg IV twice daily, fluid restrictions 1500 cc, daily I's and O's, Review of records revealed that he was transferred to [facility] in the past for resistant hypervolemia Chronic kidney disease stage II Creatinine 1.4 No active decompensation, his creatinine seems to be around baseline Hypokalemia most likely due to alkalosis Replace potassium with 80 mEq Potassium replete Check phosphorus level Acute on chronic normocytic anemia Patient is endorsing bright bleed per rectum and is endorsing history of hemorrhoids Would avoid DVT prophylaxis with anticoagulation Another H&H around 11 AM End-stage COPD Patient revoked his home hospice Currently on 5 to 6 L of oxygen, prominent muscle mass loss Seems to have poor insight to his comorbid condition Untreated obstructive sleep apnea with bicarb around 44, patient is noncompliant with his CPAP Full code DVT prophylaxis contraindicated because of active anemia Cardiac diet He is a high risk for intubation, continues to refuses BiPAP, advised risk, risks including but not limited to significant morbidity mortality, and to intubation, significant respiratory failure, voiced understanding, all questions answered Attestations Medical Necessity Statement*: Patient requires hospitalization for acute hypercapnia acute respiratory failure,, GI bleed Coding Level of Care Code Acute International Marketing Coordinator for Chg Fwd Diagnoses Community acquired pneumonia J18.9 Laterality: unspecified laterality Congestive heart failure I50.9 Heart failure chronicity: acute on chronic Heart failure type: unspecified CKD (chronic kidney disease) N18.9 Obstructive sleep apnea G47.33 Normocytic anemia D64.9
[2020-01-20 15:29] LABS: Ferritin 34 ng/mL (30-400); Iron 28 ug/dL (59-158); Percent Saturation 7.2 % (20-50); Total Iron Binding Capacity 388 mcg/dl; Unsaturated Iron Binding 360 ug/dL (112-347)
[2020-01-20 18:02] LABS: Hematocrit 28.6 % (42.0-52.0); Hemoglobin 8.4 g/dL (11.7-16.6)
[2020-01-20] MEDS: potassium chloride oral liq 20 mEq/15 mL UDC 40 MEQ PO (18:28)
[2020-01-21] VITALS (16 sets, daily range): BP systolic 99–115; BP diastolic 73–79; PULSE 89–112; RESP 18–26; TEMP 36.4–36.6; O2SAT 92–99
[2020-01-21] MEDS: LORazepam 0.5 mg Tablet PO ×2 (02:17→20:13)
[2020-01-21] MEDS: albuterol 8 gm MDI 2 PUFF INHALATION ×6 (05:03→23:11)
[2020-01-21 05:58] LABS: Basophils % 0.6 %; Eosinophils # 0.3 10^3/uL (0.0-0.8); Eosinophils % 3.7 %; Hemoglobin 8.7 g/dL (11.7-16.6); Lymphocytes # 1.2 10^3/uL (0.8-4.8); Mean Corpuscular Hemoglobin 27.4 pg (28.0-34.0); Mean Corpuscular Volume 91.5 fL (80-94); Mean Platelet Volume 9.4 fL (7.4-10.4); Monocytes # 1.1 10^3/uL (0.2-0.9); Monocytes % 15.7 %; Neutrophils # 4.2 10^3/uL (1.8-7.7); Neutrophils % 62.4 %; Nucleated Red Blood Cells % 0 %; Platelet Count 237 10^3/cmm (130-400); Red Blood Count 3.17 10^6/uL (4.1-5.3); Red Cell Distribution Width 15.3 % (12.1-15.1); White Blood Count 6.8 10^3/uL (4.0-10.0)
[2020-01-21 06:26] LABS: Magnesium 1.9 mg/dL (1.7-2.3); Phosphorus 2.7 mg/dL (2.5-4.5)
[2020-01-21 06:36] LABS: Anion Gap 18.2 (5-19); Blood Urea Nitrogen 34 mg/dL (8-23); Calcium 8.9 mg/dL (8.5-10.5); Carbon Dioxide 36 mmol/L (22-29); Chloride 87 mmol/L (98-107); Glucose 102 mg/dL (65-115); Osmolality Calculated 284 mOsm/kg (285-295); Potassium 3.2 mmol/L (3.5-5.1); Sodium 138 mmol/L (136-145)
[2020-01-21 07:55] LABS: Coronavirus Lab Test PTC SEE REPORT
[2020-01-21] MEDS: pantoprazole 40 mg SDV IVP ×2 (08:17→20:14)
--- NOTE | 2020-01-21 08:17 | CTR_ITS ---
PROCEDURE INFORMATION: Exam: CT Angiography Chest With Contrast Exam date and time: 01/21/2020 12:47 PM Age: 69 years old Clinical indication: Shortness of breath; Patient HX: SOB and hypoxia. ; Additional info: SOB, rll density, R/O pe TECHNIQUE: Imaging protocol: Computed tomographic angiography of the chest with intravenous contrast. 3D rendering: MIP and/or 3D reconstructed images were created by the technologist. Radiation optimization: All CT scans at this facility use at least one of these dose optimization techniques: automated exposure control; mA and/or kV adjustment per patient size (includes targeted exams where dose is matched to clinical indication); or iterative reconstruction. Contrast material: OMNI 350; Contrast volume: 74 ml; Contrast route: INTRAVENOUS (IV); COMPARISON: CTA Chest-Pulmonary Emb [id number] 02/20/2018 11:52 AM RADIATION DOSE METRICS: Total DLP (mGy-cm): 439.35 FINDINGS: Pulmonary arteries: Normal. No pulmonary emboli. Aorta: Unremarkable. No aortic aneurysm. No aortic dissection. Lungs: There are centrilobular emphysematous changes in the bilateral lungs. There is scarring in the bilateral lungs, similar to the prior study most prominent at right lung base.There are scattered regions of bilateral subpleural interstitial thickening, greatest at the lung bases, suggestive of pulmonary fibrosis. Pleural space: There are small bilateral pleural effusions with adjacent compressive atelectasis, which were also seen on the prior CT scan. Heart: Cardiomegaly. There is reflux of contrast into the hepatic veins, consistent with right heart strain. Mediastinal space: Small hiatal hernia. Lymph nodes: Unremarkable. No enlarged lymph nodes. Bones/joints: There are degenerative changes in the visualized spine. Soft tissues: Unremarkable. CT/CT angio chest PE protcl [id number] IMPRESSION: 1. Small bilateral pleural effusions with adjacent compressive atelectasis, also seen on the prior CT scan. In combination with cardiomegaly, findings are consistent with congestive heart failure. There is right heart strain. 2. No evidence for pulmonary embolus. 3. There are centrilobular emphysematous changes in the bilateral lungs. 4. There are scattered regions of bilateral subpleural interstitial thickening, greatest at the lung bases, suggestive of pulmonary fibrosis. 5. There is scarring in the bilateral lungs, similar to the prior study most prominent at right lung base. Radiation Dose CTDIVOL = (mGy): DLP = 439.35 (mGy-cm)
[2020-01-21] MEDS: bumetanide 0.25 mg/mL SDV 10 mL 1 MG IV ×2 (08:18→20:14)
[2020-01-21] MEDS: spironolactone 25 mg Tablet PO (08:21)
[2020-01-21] MEDS: hydroxychloroquine 200 mg Tablet PO ×2 (08:21→17:49)
[2020-01-21] MEDS: sennosides 8.6 mg Tablet PO ×2 (08:21→17:48)
[2020-01-21] MEDS: sulfaSALAzine 500 mg Tablet 1000 MG PO ×2 (08:22→17:49)
[2020-01-21] MEDS: hydroCHLOROthiazide 25 mg Tablet PO (08:22)
[2020-01-21] MEDS: azithromycin 250 mg Tablet PO (08:22)
[2020-01-21] MEDS: predniSONE 20 mg Tablet PO (08:22)
[2020-01-21] MEDS: carvedilol 3.125 mg Tablet PO ×2 (08:22→17:49)
[2020-01-21] MEDS: potassium chloride ER 10 mEq Tablet 40 MEQ PO ×2 (08:27→17:48)
[2020-01-21] MEDS: morphine 4 mg/mL SDV 1 mL 1 MG IVP ×2 (08:28→20:13)
[2020-01-21] MEDS: gabapentin 300 mg Capsule PO ×2 (08:28→17:49)
[2020-01-21] MEDS: cefTRIAXone 1,000 MG in sodium chloride 0.9% (plus) 50 ML 100 MG IV (08:35)
--- NOTE | 2020-01-21 13:00 | PC.NURSE ---
No teeth or dentures/diet change to soft mechanical Pt stated he does not have any dentures or teeth. And he cannot chew well without teeth or dentures. Informed Doctor and okay for me to change his diet to soft mechanical. Cooked pt some oatmeal and provided with apple sauce for lunch since he refused his lunch tray.
--- NOTE | 2020-01-21 13:12 | PM.PN ---
Subjective Subjective: Interval history: Patient states that he is not able to sleep overnight due to severe peripheral neuropathy, breathing has improved, but still a bit short of breath, no lightheadedness, dizziness, no chest pain Vitals/I&O/Wt Last Vital Signs Temp 97.7 F 01/21/20 08:00 Pulse 112 H 01/21/20 08:00 Resp 20 H 01/21/20 08:28 BP 112/73 01/21/20 08:00 Pulse Ox 92 01/21/20 08:28 01/20/20 01/21/20 01/21/20 22:59 06:59 14:59 Intake Total 690 / 1690 460 / 2150 390 / 390 Output Total 525 / 2825 1150 / 3975 Balance 165 / -1135 -690 / -1825 390 / 390 Weight last 48 hrs Weight 63.957 kg Physical Exam Const: COMMON NORMALS: no acute distress and patient oriented x3 HENMT: COMMON NORMALS: normocephalic HEAD & SCALP: normocephalic Neck/C-Spine: COMMON NORMALS: no JVD Resp: COMMON NORMALS: normal respiratory effort, No retractions and No use of accessory muscles AUSCULTATION: wheezes Cardio: COMMON NORMALS: no JVD, regular rate, regular rhythm, S1 normal heart sound present and S2 normal heart sound present RATE: regular rate RHYTHM: regular rhythm HEART SOUNDS: S1 normal heart sound present and S2 normal heart sound present GI: COMMON NORMALS: Normal to inspection, nondistended, normoactive bowel sounds present, Soft to palpation, non-tender, No hepatosplenomegaly present, no masses and no bruits PALPATION: Yes Soft to palpation and Yes No hepatosplenomegaly present Extremity: COMMON NORMALS: capillary refill normal, no clubbing, cyanosis or edema, no calf tenderness and no pedal edema Neuro: COMMON NORMALS: patient oriented x3 Psych: COMMON NORMALS: mental status grossly normal Data : 01/21/20 05:35 01/21/20 05:35 Micro: Microbiology 01/20/20 22:49 Bacterial Antigens - Final Urine,Voided 01/20/20 05:25 Blood Culture - Preliminary Blood NEGATIVE TO DATE 01/20/20 04:30 Blood Culture - Preliminary Blood NEGATIVE TO DATE 01/20/20 22:49 Legionella Urinary Antigen - Final Urine Catheterized A&P Assessment and plan (1) Community acquired pneumonia: Status: Acute Qualifiers: Laterality: unspecified laterality Qualified Code(s): J18.9 - Pneumonia, unspecified organism (2) Congestive heart failure: Status: Acute Qualifiers: Heart failure chronicity: acute on chronic Heart failure type: unspecified Qualified Code(s): I50.9 - Heart failure, unspecified (3) CKD (chronic kidney disease): Status: Acute (4) Obstructive sleep apnea: Status: Acute (5) Normocytic anemia: Status: Acute Additional A&P Information Acute hypoxic respiratory failure secondary to pneumonia and diastolic heart failure Community-acquired pneumonia Right lower lobe infiltrate Patient is endorsing temperature 101 at home Not septic on admission Blood gases showing respiratory alkalosis, and metabolic alkalosis likely secondary to heart failure, Lasix therapy, pulmonary edema, chronic compensation for end-stage COPD Patient is refusing BiPAP which was recommended to decrease work of breathing COVID negative Urine antigens ordered Continue Rocephin and azithromycin Blood cultures sent Would likely benefit from a CT angios of his chest today Continue Bumex 1 mg IV twice daily, with potassium replacement Slow GI bleed Hemoglobin down to 8.7 No bloody or black stools -We will do iron studies - Protonix 40 twice daily -Trend hemoglobins hold anticoagulation, SCDs for DVT prophylaxis -Continue to monitor clinically Preserved ejection fraction heart failure Recent echo revealed normal ejection fraction without diastolic dysfunction however he has clinical signs of fluid overload, high BNP 1183 I would not repeat echo at this time, echo was done on 11/21 Bumex 1 mg IV twice daily, potassium replacement, fluid restrictions 1500 cc, daily I's and O's, Review of records revealed that he was transferred to [facility] in the past for resistant hypervolemia Chronic kidney disease stage II Creatinine 0.6 No active decompensation, his creatinine seems to be around baseline Hypokalemia most likely due to alkalosis Replace potassium with 80 mEq Potassium replete Check phosphorus level Acute on chronic normocytic anemia Patient is endorsing bright bleed per rectum and is endorsing history of hemorrhoids Would avoid DVT prophylaxis with anticoagulation Another H&H around 11 AM End-stage COPD Patient revoked his home hospice Currently on 5 to 6 L of oxygen, prominent muscle mass loss Seems to have poor insight to his comorbid condition Untreated obstructive sleep apnea with bicarb around 44, patient is noncompliant with his CPAP Peripheral neuropathy, start gabapentin, topical capsaicin cream, Epson salts Full code DVT prophylaxis contraindicated because of active anemia Cardiac diet He is a high risk for intubation, continues to refuses BiPAP, advised risk, risks including but not limited to significant morbidity mortality, and to intubation, significant respiratory failure, voiced understanding, all questions answered Attestations Medical Necessity Statement*: Requires continued hospitalization due to acute respiratory failure Coding Level of Care Code Acute 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
[2020-01-21] MEDS: LORazepam 2 mg/mL INJ 1 mL 0.5 MG IVP (13:15)
[2020-01-21] MEDS: iohexol 350 mg/mL 100 mL Btl IV (13:42)
--- NOTE | 2020-01-21 14:35 | PC.NURSE ---
Foot care Per pt request, he would like his feet to be soaked in warm water with epsom salt since per patien he has been doing this at home as needed. Dr. Prado at bedside and is okay to have pt use his own Epsom salt if family already brought one for him. Pt had a no open sores. Bilateral legs has trace to +1 pitting edema as well as his feet. Dopplerable pulses on DP.
--- NOTE | 2020-01-21 15:10 | PC.NURSE ---
Home med rec Asked pt if he has his current home med list, pt stated he did not have one. He could not remember what meds his taking. He said he gets his meds in [facility]. They are close today. We will check it tomorrow.
[2020-01-21] MEDS: famotidine 20 mg Tablet 40 MG PO (20:14)
[2020-01-22] VITALS (10 sets, daily range): BP systolic 92–112; BP diastolic 67–78; PULSE 90–97; RESP 18–22; TEMP 36.5–36.6; O2SAT 95–98
--- NOTE | 2020-01-22 00:34 | PC.NURSE ---
Patient is awake at this time. Sitting at the side of the bed. Patient remains alert and oriented. call light is within reach and will continue to monitor.
[2020-01-22] MEDS: albuterol 8 gm MDI 2 PUFF INHALATION ×3 (03:28→12:26)
[2020-01-22 04:58] LABS: Basophils % 0.5 %; Eosinophils # 0.2 10^3/uL (0.0-0.8); Eosinophils % 4.1 %; Hematocrit 27.7 % (42.0-52.0); Hemoglobin 8.2 g/dL (11.7-16.6); Lymphocytes # 0.9 10^3/uL (0.8-4.8); Lymphocytes % 15.1 %; Mean Corpuscular HGB Conc 29.6 g/dL (30.0-36.0); Mean Corpuscular Hemoglobin 26.8 pg (28.0-34.0); Mean Corpuscular Volume 90.5 fL (80-94); Mean Platelet Volume 9.4 fL (7.4-10.4); Monocytes # 0.9 10^3/uL (0.2-0.9); Monocytes % 15.3 %; Neutrophils # 3.8 10^3/uL (1.8-7.7); Neutrophils % 64.8 %; Nucleated Red Blood Cells % 0 %; Platelet Count 235 10^3/cmm (130-400); Red Blood Count 3.06 10^6/uL (4.1-5.3); Red Cell Distribution Width 15.4 % (12.1-15.1); White Blood Count 5.9 10^3/uL (4.0-10.0)
[2020-01-22 05:20] LABS: Alanine Aminotransferase 12 U/L (0-41); Albumin Level 4.2 g/dL (3.5-5.2); Alkaline Phosphatase 73 IU/L (40-130); Anion Gap 12.4 (5-19); Aspartate Amino Transferase 28 U/L (0-40); Blood Urea Nitrogen 31 mg/dL (8-23); Carbon Dioxide 38 mmol/L (22-29); Chloride 92 mmol/L (98-107); Globulin 2.9 g/dL (1.3-4.6); Glomerular Filtration Rate 60.2 mL/min (90-130); Glucose 92 mg/dL (65-115); Osmolality Calculated 285 mOsm/kg (285-295); Potassium 3.4 mmol/L (3.5-5.1); Sodium 139 mmol/L (136-145); Total Bilirubin 0.3 mg/dL (0.15-1.2); Total Protein 7.1 g/dL (6.6-8.7)
[2020-01-22 05:24] LABS: Magnesium 2.1 mg/dL (1.7-2.3); Phosphorus 4.3 mg/dL (2.5-4.5)
--- NOTE | 2020-01-22 06:01 | PC.NURSE ---
End of shift: Patient has rested tonight and has had a uneventful night. Patient remains alert and oriented call light is within reach bed in low position. Will continue to monitor.
[2020-01-22] MEDS: pantoprazole 40 mg SDV IVP (07:55)
[2020-01-22] MEDS: hydroCHLOROthiazide 25 mg Tablet PO (08:04)
[2020-01-22] MEDS: gabapentin 300 mg Capsule PO (08:04)
[2020-01-22] MEDS: sulfaSALAzine 500 mg Tablet 1000 MG PO (08:04)
[2020-01-22] MEDS: azithromycin 250 mg Tablet PO (08:04)
[2020-01-22] MEDS: spironolactone 25 mg Tablet PO (08:04)
[2020-01-22] MEDS: carvedilol 3.125 mg Tablet PO (08:04)
[2020-01-22] MEDS: hydroxychloroquine 200 mg Tablet PO (08:04)
[2020-01-22] MEDS: predniSONE 20 mg Tablet PO (08:06)
[2020-01-22] MEDS: sennosides 8.6 mg Tablet PO (08:06)
[2020-01-22] MEDS: cefTRIAXone 1,000 MG in sodium chloride 0.9% (plus) 50 ML 100 MG IV (08:06)
[2020-01-22] MEDS: bumetanide 1 mg Tablet PO (08:23)
[2020-01-22] MEDS: potassium chloride ER 10 mEq Tablet 40 MEQ PO (08:23)
[2020-01-22] MEDS: pantoprazole DR 40 mg Tablet PO (08:23)
--- NOTE | 2020-01-22 10:29 | PM.DCS ---
Discharge Providers Date of Admission: 01/20/20 05:23 Date of Discharge: January 22, 2020 Attending Provider at Admission: Cj Washington MD Attending Provider at Discharge: Kwaku Prado MD Primary Care Provider: Avel Chacko MD Diagnoses at Discharge Discharge Diagnosis (1) Community acquired pneumonia: Status: Acute Qualifiers: Laterality: unspecified laterality Qualified Code(s): J18.9 - Pneumonia, unspecified organism (2) Congestive heart failure: Status: Acute Qualifiers: Heart failure chronicity: acute on chronic Heart failure type: unspecified Qualified Code(s): I50.9 - Heart failure, unspecified (3) CKD (chronic kidney disease): Status: Acute (4) Obstructive sleep apnea: Status: Acute (5) Normocytic anemia: Status: Acute Reason for Visit Reason for Visit: DIFFICULTY BREATHING Hospital Course Discharge Summary: This is a 69-year-old male with a past medical history of end-stage COPD on 5 L oxygen, chronic steroids for which I presume for COPD and/or rheumatoid arthritis, heart failure with preserved ejection fraction, CKD stage II-III, chronic normocytic anemia, peripheral neuropathy who presents to [facility] due to complaints of shortness of breath Patient was admitted to [facility] for acute hypoxic respiratory failure secondary to pneumonia, COPD, CHF. Patient had COVID testing which was negative For his pneumonia, he had a right lower lobe density concerning for pneumonia, no significant leukocytosis, no significant procalcitonin elevation, received IV antibiotics, clinically improved, discharged on oral doxycycline For his COPD, received inhaler therapy, clinically improved, CT of the chest showed compressive atelectasis bilaterally, bilateral pleural effusions, centrilobular emphysema, bilateral subpleural interstitial thickening, pulmonary fibrosis. Given patient's COPD, chronic steroids, inhaler therapy, readmissions. I will refer the patient to Dr. Jones for concerns for pulmonary fibrosis, advanced COPD, and monitoring his right lower lobe density. There is also evidence of right heart strain seen on a CT scan, CT scan was negative for pulmonary embolism. Throughout his admission, patient pH was 7.52, PCO2 54.8, bicarb 44.2. Indicating that he had chronic respiratory alkalosis with metabolic alkalosis likely secondary to heart failure, Lasix therapy, pulmonary edema, chronic compensation for end-stage COPD. Throughout his admission patient refused BiPAP use.. For his CHF, has a history of diastolic heart failure, echocardiogram showed ejection fraction 65%, normal diastolic dysfunction, although clinically he acts like diastolic heart failure. Receive inpatient diuresis with Bumex, symptoms significantly improved, with diuresis, diuresed roughly 3 L, was able to ambulate without significant symptomatology. Discharged on Lasix 40 mg in the morning, 20 mg in the p.m., creatinine on discharge was 1.2, with metolazone on his dose Thursday, recheck of his creatinine in 3 days with a follow-up with Dr. Chacko in 3 days. In addition I will have patient follow-up with cardiology. For his acute on chronic anemia, hemoglobin got as low as 8.2, likely multifactorial related to anemia of chronic disease related to his rheumatoid arthritis and his hydroxychloroquine use. However I cannot exclude a GI bleed, I kept him a Protonix 40 twice daily, hemodynamically stable, no blood required, no bloody or black stools. Patient was advised to follow-up with Dr. Resendiz as outpatient for consideration EGD, discharged on Protonix 40 twice daily, hemoglobin at discharge was 8.2. For peripheral neuropathy, I discharge patient on gabapentin 300 2 times daily. Physical Exam Const: COMMON NORMALS: no acute distress and patient oriented x3 HENMT: COMMON NORMALS: normocephalic HEAD & SCALP: normocephalic Neck/C-Spine: COMMON NORMALS: no JVD Resp: COMMON NORMALS: normal respiratory effort, No retractions, No use of accessory muscles and clear to auscultation bilaterally AUSCULTATION: clear to auscultation bilaterally Cardio: COMMON NORMALS: no JVD, regular rate, regular rhythm, S1 normal heart sound present and S2 normal heart sound present RATE: regular rate RHYTHM: regular rhythm HEART SOUNDS: S1 normal heart sound present and S2 normal heart sound present GI: COMMON NORMALS: Normal to inspection, nondistended, normoactive bowel sounds present, Soft to palpation, non-tender, No hepatosplenomegaly present, no masses and no bruits PALPATION: Yes Soft to palpation and Yes No hepatosplenomegaly present Extremity: COMMON NORMALS: capillary refill normal, no clubbing, cyanosis or edema, no calf tenderness and no pedal edema Neuro: COMMON NORMALS: patient oriented x3 Psych: COMMON NORMALS: mental status grossly normal Discharge Data Data Completed and Pending: Completed Studies During Hospitalization Category Date Time Status CT angio chest PE protcl [id number] Rout ine Cat Scan 01/21/20 08:17 Completed XR chest 1V lori ble [id number] Urgent Exams 01/20/20 04:19 Completed Pending at discharge Category Date Time Status Blood Culture Sta t Lab 01/20/20 05:25 Results Complete Blood Co unt w/Auto AM LABS Lab 01/23/20 04:00 Ordered Complete Blood Co unt w/Auto AM LABS Lab 01/24/20 04:00 Ordered Comprehensive Met abolic Panel AM LA BS Lab 01/23/20 04:00 Ordered Comprehensive Met abolic Panel AM LA BS Lab 01/24/20 04:00 Ordered Magnesium AM LABS Lab 01/23/20 04:00 Ordered Phosphorus AM LAB S Lab 01/23/20 04:00 Ordered Labs from last 24 hours 01/22/20 01/22/20 01/22/20 04:03 04:03 04:03 WBC 5.9 RBC 3.06 L Hgb 8.2 L Hct 27.7 L MCV 90.5 MCH 26.8 L MCHC 29.6 L RDW 15.4 H Plt Count 235 MPV 9.4 Neut % (Auto) 64.8 Lymph % (Auto) 15.1 Barnes % (Auto) 15.3 Eos % (Auto) 4.1 Baso % (Auto) 0.5 Neut # (Auto) 3.8 Lymph # (Auto) 0.9 Barnes # (Auto) 0.9 Eos # (Auto) 0.2 Baso # (Auto) 0.0 Nucleated RBC % (a uto) 0 Nucleated RBCs # 0.0 Sodium 139 Potassium 3.4 L Chloride 92 L Carbon Dioxide 38 H Anion Gap 12.4 BUN 31 H Creatinine 1.2 GFR Calculation 60.2 L Glucose 92 Calculated Osmolal ity 285 Calcium 9.0 Phosphorus 4.3 D Magnesium 2.1 Total Bilirubin 0.3 AST 28 ALT 12 Alkaline Phosphata se 73 Total Protein 7.1 Albumin 4.2 Globulin 2.9 Vitals: Last Vital Signs Temp 97.7 F 01/21/20 18:58 Pulse 95 01/22/20 08:02 Resp 18 01/22/20 08:02 BP 101/67 01/22/20 08:02 Pulse Ox 95 01/22/20 08:02 Discharge Plan Discharge Patient Disposition: Home, Self-Care Condition: Stable Prescriptions: New pantoprazole 40 mg Tablet,Delayed Release (Dr/Ec) 40 mg PO BID 30 Days Qty: 60 RF: 0 prednisone 20 mg Tablet 20 mg PO DAILY 30 Days RF: 0 doxycycline hyclate 100 mg tablet 100 mg PO BID 5 Days Qty: 10 RF: 0 gabapentin 300 mg Capsule 300 mg PO BID 30 Days Qty: 60 RF: 0 Continued senna 8.6 mg tablet 8.6 mg PO BID RF: 0 sulfasalazine 500 mg Tablet 1 g PO BID RF: 0 spironolacton-hydrochlorothiaz 25-25 mg tablet 1 tab PO DAILY RF: 0 prednisone 20 mg Tablet 20 mg PO DAILY RF: 0 metolazone 5 mg tablet See Rx Instructions .ROUTE .COMPLEX RF: 0 carvedilol 3.125 mg tablet 3.125 mg PO BID RF: 0 lorazepam 0.5 mg tablet 0.5 mg PO Q6H PRN (Reason: Anxiety) RF: 0 docusate sodium 100 mg capsule 100 mg PO DAILY RF: 0 hydroxychloroquine 200 mg tablet 200 mg PO BID RF: 0 albuterol sulfate 90 mcg/actuation HFA aerosol inhaler 2 puff INHALATION Q6H PRN (Reason: Shortness Of Breath) RF: 0 ipratropium bromide 0.02 % solution 1 ml inhalation QID PRN (Reason: Shortness Of Breath) RF: 0 budesonide-formoterol 160-4.5 mcg/actuation HFA aerosol inhaler 1 puff INHALATION BID RF: 0 Incruse Ellipta 62.5 mcg/actuation blister with device 1 inh INHALATION DAILY RF: 0 Changed Klor-Con M20 20 mEq tablet,ER particles/crystals 40 meq PO BIDWM Qty: 0 RF: 0 furosemide 40 mg tablet See Rx Instructions .ROUTE .COMPLEX Qty: 45 RF: 0 Discontinued famotidine 40 mg tablet 40 mg PO BID RF: 0 Discharge Orders: Discharge Order (Routine); Ordered 01/22/20 Ordered By: Kwaku Prado Referrals: [facility] [Outside] [facility] [Outside] [facility] [Outside] Artur Resendiz MD [Physician] - 1 month (GI bleed ) Cj Guzmán MD [Physician] - Avel Chacko MD [Primary Care Provider] - 1-3 days Zev Jones MD [Physician] - 2 weeks Amira Lynch MD [Physician] - 2 weeks Discharge Diet: Cardiac Discharge Activity: Resume usual activity Patient Instructions: Doxycycline (By mouth), Prednisone (By mouth), Gabapentin (By mouth), Pantoprazole (By mouth), GI Bleeding, Heart Failure (DC), Chronic Obstructive Pulmonary Disease (DC), Community-acquired Pneumonia (GEN) Activity Restrictions/Additional Instructions: -Please take Lasix 40 mg in the morning, 20 mg in the afternoon, with metolazone Thursday -Recheck blood work in 3 days -Recheck creatinine in 3 days -Recheck CBC, with hemoglobin in 3 days -If if you have bloody or black stools please come back to emergency room -Please follow-up with Dr. Richter for consideration EGD -For your end-stage COPD, please follow-up with Dr. Jones -Please for your CHF please follow-up with cardiology Discharge Attestations Time Spent in Discharge Care*: less than 30 min Quality Metrics Clinical Quality Measures During this hospital stay, did patient experience: None Coding Level of Care Code Acute Billing Clerk for Chg Fwd Diagnoses Community acquired pneumonia J18.9 Laterality: unspecified laterality Congestive heart failure I50.9 Heart failure chronicity: acute on chronic Heart failure type: unspecified CKD (chronic kidney disease) N18.9 Obstructive sleep apnea G47.33 Normocytic anemia D64.9
[2020-01-22] MEDS: LORazepam 0.5 mg Tablet PO (13:53)
--- NOTE | 2020-01-22 14:34 | PC.NURSE ---
Discharge to home with home health services Instructed pt to follow-up with his pcp, fig washer, mri tech as discussed. Educated pt on his new meds actions, dosing, possible side effects and timing. Pt could not verify his home med list with me. Re-educated pt on his discharge meds. He tried to contact his home health but they are not answering. Instructed pt to call his home health nurse to go over again with his home meds and new medication orders, as well as follow-up with his doctors. Instructed pt to carry his home med list in his pocket or bag when he comes to the hospital. Pt verbalizes understanding.
== END 2020-01-22 15:02 | disposition home or self-care (01) | DRG 193 ==
LOC: ER 05:22 → CSU 05:36
PROVIDERS: Emergency Medicine; Admitting Provider Internal Medicine; Family Provider Family Medicine; PCP Family Medicine; Visit Provider Family Medicine
DX: J18.9 Pneumonia, unspecified organism (principal); I50.31 Acute diastolic (congestive) heart failure; I13.0 Hypertensive heart and chronic kidney disease with heart failure and stage 1 through stage 4 chronic kidney disease, or unspecified chronic kidney disease; E87.3 Alkalosis; G47.33 Obstructive sleep apnea (adult) (pediatric); D64.9 Anemia, unspecified; Z99.81 Dependence on supplemental oxygen; Z79.52 Long term (current) use of systemic steroids; M06.9 Rheumatoid arthritis, unspecified; N18.3 Chronic kidney disease, stage 3 (moderate); G62.9 Polyneuropathy, unspecified; Z96.0 Presence of urogenital implants; Z11.59 Encounter for screening for other viral diseases; Z86.73 Personal history of transient ischemic attack (TIA), and cerebral infarction without residual deficits; E11.22 Type 2 diabetes mellitus with diabetic chronic kidney disease; Z87.891 Personal history of nicotine dependence; E87.6 Hypokalemia
CPT/HCPCS: 12345; 36415; 36600; 71045; 71275; 80048; 80053; 82728; 82803; 82805; 83540; 83550; 83735; 83880; 84100; 85014; 85018; 85025; 85045; 85610; 86403; 87040; 87449; 87635; 93005; 94640; 96375; 99283; C9113; J0456; J0696; J1940; J2060; J2270; J2930; J3480; J3490; J3535; J7050; J7512; Q0144; Q9967

== ENCOUNTER 2020-02-23 15:33 | Observation (INO) | payer MEDICARE, MEDICAID, SELFPAY ==
[2020-02-23] VITALS (9 sets, daily range): BP systolic 89–112; BP diastolic 56–79; PULSE 99–138; RESP 16–19; TEMP 36.8; O2SAT 94–99; BMI 25.0
--- NOTE | 2020-02-23 15:57 | ECG_ITS ---
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 Measurements Intervals [place] Rate: 138 P: DE: -1 QRS: 40 QRSD: 93 T: 0 QT: 159 QTc: 241 Interpretive Statements ATRIAL FLUTTER WITH RAPID VENTRICULAR RESPONSE LOW QRS VOLTAGE IN EXTREMITY LEADS [QRS DEFLECTION < 0.5 mV IN LIMB LEADS] NONSPECIFIC ST & T-WAVE ABNORMALITY ABNORMAL RHYTHM ECG Compared to ECG 01/20/2020 04:42:09 Low QRS voltage now present Sinus tachycardia no longer present T-wave abnormality still present Electronically Signed On 02-24-2020 16:00:54 CDT by Roel Williamson M.D. [email or web address]
--- NOTE | 2020-02-23 15:58 | XRR_ITS ---
PROCEDURE INFORMATION: Exam: XR Chest, 1 View Exam date and time: 02/23/2020 4:16 PM Age: 69 years old Clinical indication: Shortness of breath and other: Tachy TECHNIQUE: Imaging protocol: XR of the chest Views: 1 view. COMPARISON: CR XR chest 1V portable [id number] 01/20/2020 5:11 AM FINDINGS: Lungs: There is patchy opacification in the lung bases. No significant new areas of lung consolidation. Pleural space: There are small bilateral pleural effusions. No pneumothorax. Heart/Mediastinum: Unremarkable. No cardiomegaly. Bones/joints: Unremarkable. XR/XR chest 1V portable [id number] IMPRESSION: No significant change when compared with 01/20/2020.
--- NOTE | 2020-02-23 15:59 | W.ED.GENADLT ---
Documented by User: KAIT Mckeon 02/23/20 16:45 HPI - General Adult General: Chief complaint: Urogenital-Male Stated complaint: CATH PLACEMENT/ POSSIBLE DEHYDRATION Time Seen by Provider: 02/23/20 15:35 History of Present Illness: HPI narrative: Patient sent from [facility] due to tachycardia and able to place the Howard cath back after was taken out. They thought he might be dehydrated also. Patient has a history of congestive heart failure incontinence diabetes CVA chronic kidney disease hypertension. MD complaint: Need of Howard catheter placement Onset (ago): hour(s) Associated symptoms: Reports no associated symptoms; Deny chest pain, dyspnea, headache(s), nausea, rash or vomiting Treatments prior to arrival: none and other (halfway was unable to place Howard cath back in) Review of Systems Narrative: halfway thought he might be dehydrated can take fluids well Const: Denies: fever(s), chills or body aches Eyes: Denies: change in vision or blurry vision ENMT: Denies: throat pain or nasal congestion Card: Reports: other (Tachycardia and does have chronic edema bilateral lower extremities); Denies: chest pain or dyspnea on exertion Resp: Denies: dyspnea, productive cough or non-productive cough GI: Denies: abdominal pain, nausea or vomiting : Reports: other (Urinary incontinence unable to replace Howard catheter [facility] today); Denies: difficulty urinating Musc: Denies: extremity pain Skin/Breast: Denies: rash Neuro: Denies: headache(s) Psych: Denies: anxiety or depression Lyle/Lymph: Denies: easy bruising PFSH ED PFSH: Medical History CKD (chronic kidney disease) Congestive heart failure COPD (chronic obstructive pulmonary disease) CVA (cerebral vascular accident) Diabetes mellitus type 2 in nonobese Hypertension Normocytic anemia Obstructive sleep apnea Rheumatoid arthritis Surgical History History of inguinal hernia repair History of tonsillectomy Family History Father Lung disease Social History Smoking and tobacco status: former smoker Alcohol intake: never Household members: none Housing: Apartment Physical Exam Const: COMMON NORMALS: no acute distress, average body habitus and alert ORIENTATION/CONSCIOUSNESS: Yes oriented to person and Yes oriented to place; not oriented to time HENMT: COMMON NORMALS: normocephalic HEAD & SCALP: normal to inspection and normocephalic FACE & SINUS: normal facial exam Eye: COMMON NORMALS: conjunctivae normal GENERAL EYE: appearance normal, both eyes and all related structures CONJUNCTIVA: Yes conjunctivae normal Neck/C-Spine: COMMON NORMALS: no JVD Chest: COMMONS NORMALS: normal inspection of the chest Resp: OTHER: Is on O2 sats drop when O2 is taken off varies Cardio: COMMON NORMALS: no JVD and regular rhythm RATE: tachycardic RHYTHM: regular rhythm GI: COMMON NORMALS: Normal to inspection, nondistended, normoactive bowel sounds present : OTHER: The cath is not presently in Extremity: COMMON NORMALS: normal to inspection and full ROM Neuro: SENSORIUM/ORIENTATION: Yes alert, Yes oriented to person, Yes oriented to place and No oriented to time Skin: NARRATIVE SKIN EXAM: skin is dry does have tenting has 2-3+ bilateral lower edema with some redness Course Vital Signs: Vital signs: Vital Signs Temperature 98.3 F 02/23/20 15:52 Pulse Rate 100 02/23/20 23:00 Respiratory Rate 18 02/23/20 23:00 Blood Pressure 89/56 02/23/20 23:00 Pulse Oximetry 98 02/23/20 23:00 MDM - General Adult MDM Narrative: Medical decision making narrative: Discussed case with Dr. Yang. Discussed EKG findings chest x-ray findings. Will await UA results make final determination. Care turned over to DAVID Jeffries Lab Data: Labs: Lab Results 02/23/20 02/23/20 02/23/20 Range/Units 16:05 16:05 16:05 WBC 9.9 (4.0-10.0) 10^3/ uL RBC 3.24 L (4.1-5.3) 10^6/u L Hgb 8.3 L (11.7-16.6) g/dL Hct 29.2 L (42.0-52.0) % MCV 90.1 (80-94) fL MCH 25.6 L (28.0-34.0) pg MCHC 28.4 L (30.0-36.0) g/dL RDW 16.3 H (12.1-15.1) % Plt Count 332 (130-400) 10^3/c mm MPV 9.7 (7.4-10.4) fL Neut % (Auto) 79.5 % Lymph % (Auto) 4.3 % [place] % (Auto) 14.6 % Eos % (Auto) 0.4 % Baso % (Auto) 0.6 % Neut # (Auto) 7.83 H (1.8-7.7) 10^3/u L Lymph # (Auto) 0.4 L (0.8-4.8) 10^3/u L [place] # (Auto) 1.4 H (0.2-0.9) 10^3/u L Eos # (Auto) 0.0 (0.0-0.8) 10^3/u L Baso # (Auto) 0.1 (0.0-0.1) 10^3/u L Nucleated RBC % (a uto) 0 % Nucleated RBCs # 0.0 /100WBC Sodium 139 (136-145) mmol/L Potassium 4.8 (3.5-5.1) mmol/L Chloride 89 L (98-107) mmol/L Carbon Dioxide 38 H (22-29) mmol/L Anion Gap 16.8 (5-19) BUN 44 H (8-23) mg/dL Creatinine 1.7 H (0.7-1.2) mg/dL GFR Calculation 40.3 L (90-130) mL/min Glucose 101 (65-115) mg/dL Calculated Osmolal ity 286 (285-295) mOsm/k g Lactic Acid 2.1 (0.5-2.2) mmol/L Calcium 9.0 (8.5-10.5) mg/dL Total Bilirubin 0.5 (0.15-1.2) mg/dL AST 156 H (0-40) U/L ALT 86 H (0-41) U/L Alkaline Phosphata se 78 (40-130) IU/L Total Protein 7.7 (6.6-8.7) g/dL Albumin 3.9 (3.5-5.2) g/dL Globulin 3.8 (1.3-4.6) g/dL Urine Color (Yellow) Urine Appearance (CLEAR) Urine pH (5-7) Ur Specific Gravit y (1.005-1.030) Urine Protein (Negative) Urine Glucose (UA) (Normal) Urine Ketones (Negative) Urine Blood (Negative) Urine Nitrate (Negative) Urine Bilirubin (NEGATIVE) Urine Urobilinogen (Negative) mg/dL Ur Leukocyte Shea ase (Negative) Urine RBC (0-2) /hpf Urine WBC (0-5) /hpf Ur Squamous Epith Cells (0-5) Amorphous Sediment Urine Bacteria (NONE) 02/23/20 Range/Units 18:03 WBC (4.0-10.0) 10^3/ uL RBC (4.1-5.3) 10^6/u L Hgb (11.7-16.6) g/dL Hct (42.0-52.0) % MCV (80-94) fL MCH (28.0-34.0) pg MCHC (30.0-36.0) g/dL RDW (12.1-15.1) % Plt Count (130-400) 10^3/c mm MPV (7.4-10.4) fL Neut % (Auto) % Lymph % (Auto) % [place] % (Auto) % Eos % (Auto) % Baso % (Auto) % Neut # (Auto) (1.8-7.7) 10^3/u L Lymph # (Auto) (0.8-4.8) 10^3/u L [place] # (Auto) (0.2-0.9) 10^3/u L Eos # (Auto) (0.0-0.8) 10^3/u L Baso # (Auto) (0.0-0.1) 10^3/u L Nucleated RBC % (a uto) % Nucleated RBCs # /100WBC Sodium (136-145) mmol/L Potassium (3.5-5.1) mmol/L Chloride (98-107) mmol/L Carbon Dioxide (22-29) mmol/L Anion Gap (5-19) BUN (8-23) mg/dL Creatinine (0.7-1.2) mg/dL GFR Calculation (90-130) mL/min Glucose (65-115) mg/dL Calculated Osmolal ity (285-295) mOsm/k g Lactic Acid (0.5-2.2) mmol/L Calcium (8.5-10.5) mg/dL Total Bilirubin (0.15-1.2) mg/dL AST (0-40) U/L ALT (0-41) U/L Alkaline Phosphata se (40-130) IU/L Total Protein (6.6-8.7) g/dL Albumin (3.5-5.2) g/dL Globulin (1.3-4.6) g/dL Urine Color Yellow (Yellow) Urine Appearance Sl cloudy A (CLEAR) Urine pH 5 (5-7) Ur Specific Gravit y 1.020 (1.005-1.030) Urine Protein 3+ H (Negative) Urine Glucose (UA) Norm (Normal) Urine Ketones 1+ H (Negative) Urine Blood 3+ H (Negative) Urine Nitrate Negative (Negative) Urine Bilirubin 1+ H (NEGATIVE) Urine Urobilinogen 1 H (Negative) mg/dL Ur Leukocyte Shea ase Trace H (Negative) Urine RBC 50-80 H (0-2) /hpf Urine WBC 15-25 H (0-5) /hpf Ur Squamous Epith Cells None (0-5) Amorphous Sediment 2+ Urine Bacteria 1+ H (NONE) EKG Data^: EKG 1: EKG interpretation date: 02/23/20 EKG interpretation time: 16:18 Interpretation: A flutter with rapid ventricular response ventricular rates 130 bpm MN interval is not evident QRS durations 93 ms QT intervals 159 Computer generated interpretation: Chest X-Ray 02/23/20 15:58 IMPRESSION: No significant change when compared with 01/20/2020. Discharge Plan Discharge Patient Disposition: Home Clinical Impression: Atrial fibrillation and flutter UTI (urinary tract infection) Qualifiers: Urinary tract infection type: catheter-associated UTI Indwelling urinary catheter type: indwelling urethral catheter Encounter type: initial encounter Qualified Code(s): T83.511A - Infection and inflammatory reaction due to indwelling urethral catheter, initial encounter Condition: Stable Discharge Orders: Discharge Order (Routine); Ordered 02/23/20 Ordered By: Sotero Guillen Discharge Diet: Regular Discharge Activity: Increase activity as tolerated Sign Out Sign Out Data: Patient Sign Out occurred on 02/23/20 at 17:06. Patient's care was discussed, and care was transferred from to DAVID Jeffries. Coding Level of Care Code ED Multiple Drum Sander Helper for Chg Fwd Exam Comprehensive Documented by User: DAVID Jeffries 02/23/20 23:30 HPI - General Adult General: Chief complaint: Urogenital-Male Stated complaint: CATH PLACEMENT/ POSSIBLE DEHYDRATION Time Seen by Provider: 02/23/20 15:35 PFSH ED PFSH: Medical History CKD (chronic kidney disease) Congestive heart failure COPD (chronic obstructive pulmonary disease) CVA (cerebral vascular accident) Diabetes mellitus type 2 in nonobese Hypertension Normocytic anemia Obstructive sleep apnea Rheumatoid arthritis Surgical History History of inguinal hernia repair History of tonsillectomy Family History Father Lung disease Social History Smoking and tobacco status: former smoker Alcohol intake: never Household members: none Housing: Apartment Course Consultations: Consultation #1: I contacted the hospitalist commercial litigation attorney and discussed patient's case with him. I told the hospitalist that I think he needs to be put on observation due to his tachycardia, UTI, and being on 6 L of oxygen at home. Patient also lives at home alone with visits from home health. I expressed my concern for safety. Hospitalist said he is going to come to ED and evaluate the patient and make a decision on his admission. Vital Signs: Vital signs: Vital Signs Temperature 98.3 F 02/23/20 15:52 Pulse Rate 100 02/23/20 23:00 Respiratory Rate 18 02/23/20 23:00 Blood Pressure 89/56 02/23/20 23:00 Pulse Oximetry 98 02/23/20 23:00 MDM - General Adult MDM Narrative: Medical decision making narrative: I discussed patient's case with Dr. Acosta. Dr. Acosta went in and evaluated patient and thought that we should contact hospitalist for possible admission due to his tachycardia, UTI and shortness of breath. We were also concerned about patient safety since he lives at home alone and only has home health come in during the day. I contacted the hospitalist and he is coming down to evaluate patient to assist in decision on admitting or discharging patient. Hospitalist is placing patient on observation. Lab Data: Attestation: I reviewed the patient's lab results. Labs: Lab Results 02/23/20 02/23/20 02/23/20 Range/Units 16:05 16:05 16:05 WBC 9.9 (4.0-10.0) 10^3/ uL RBC 3.24 L (4.1-5.3) 10^6/u L Hgb 8.3 L (11.7-16.6) g/dL Hct 29.2 L (42.0-52.0) % MCV 90.1 (80-94) fL MCH 25.6 L (28.0-34.0) pg MCHC 28.4 L (30.0-36.0) g/dL RDW 16.3 H (12.1-15.1) % Plt Count 332 (130-400) 10^3/c mm MPV 9.7 (7.4-10.4) fL Neut % (Auto) 79.5 % Lymph % (Auto) 4.3 % [place] % (Auto) 14.6 % Eos % (Auto) 0.4 % Baso % (Auto) 0.6 % Neut # (Auto) 7.83 H (1.8-7.7) 10^3/u L Lymph # (Auto) 0.4 L (0.8-4.8) 10^3/u L [place] # (Auto) 1.4 H (0.2-0.9) 10^3/u L Eos # (Auto) 0.0 (0.0-0.8) 10^3/u L Baso # (Auto) 0.1 (0.0-0.1) 10^3/u L Nucleated RBC % (a uto) 0 % Nucleated RBCs # 0.0 /100WBC Sodium 139 (136-145) mmol/L Potassium 4.8 (3.5-5.1) mmol/L Chloride 89 L (98-107) mmol/L Carbon Dioxide 38 H (22-29) mmol/L Anion Gap 16.8 (5-19) BUN 44 H (8-23) mg/dL Creatinine 1.7 H (0.7-1.2) mg/dL GFR Calculation 40.3 L (90-130) mL/min Glucose 101 (65-115) mg/dL Calculated Osmolal ity 286 (285-295) mOsm/k g Lactic Acid 2.1 (0.5-2.2) mmol/L Calcium 9.0 (8.5-10.5) mg/dL Total Bilirubin 0.5 (0.15-1.2) mg/dL AST 156 H (0-40) U/L ALT 86 H (0-41) U/L Alkaline Phosphata se 78 (40-130) IU/L Total Protein 7.7 (6.6-8.7) g/dL Albumin 3.9 (3.5-5.2) g/dL Globulin 3.8 (1.3-4.6) g/dL Urine Color (Yellow) Urine Appearance (CLEAR) Urine pH (5-7) Ur Specific Gravit y (1.005-1.030) Urine Protein (Negative) Urine Glucose (UA) (Normal) Urine Ketones (Negative) Urine Blood (Negative) Urine Nitrate (Negative) Urine Bilirubin (NEGATIVE) Urine Urobilinogen (Negative) mg/dL Ur Leukocyte Shea ase (Negative) Urine RBC (0-2) /hpf Urine WBC (0-5) /hpf Ur Squamous Epith Cells (0-5) Amorphous Sediment Urine Bacteria (NONE) 02/22/ Range/Units 18:03 WBC (4.0-10.0) 10^3/ uL RBC (4.1-5.3) 10^6/u L Hgb (11.7-16.6) g/dL Hct (42.0-52.0) % MCV (80-94) fL MCH (28.0-34.0) pg MCHC (30.0-36.0) g/dL RDW (12.1-15.1) % Plt Count (130-400) 10^3/c mm MPV (7.4-10.4) fL Neut % (Auto) % Lymph % (Auto) % [place] % (Auto) % Eos % (Auto) % Baso % (Auto) % Neut # (Auto) (1.8-7.7) 10^3/u L Lymph # (Auto) (0.8-4.8) 10^3/u L [place] # (Auto) (0.2-0.9) 10^3/u L Eos # (Auto) (0.0-0.8) 10^3/u L Baso # (Auto) (0.0-0.1) 10^3/u L Nucleated RBC % (a uto) % Nucleated RBCs # /100WBC Sodium (136-145) mmol/L Potassium (3.5-5.1) mmol/L Chloride (98-107) mmol/L Carbon Dioxide (22-29) mmol/L Anion Gap (5-19) BUN (8-23) mg/dL Creatinine (0.7-1.2) mg/dL GFR Calculation (90-130) mL/min Glucose (65-115) mg/dL Calculated Osmolal ity (285-295) mOsm/k g Lactic Acid (0.5-2.2) mmol/L Calcium (8.5-10.5) mg/dL Total Bilirubin (0.15-1.2) mg/dL AST (0-40) U/L ALT (0-41) U/L Alkaline Phosphata se (40-130) IU/L Total Protein (6.6-8.7) g/dL Albumin (3.5-5.2) g/dL Globulin (1.3-4.6) g/dL Urine Color Yellow (Yellow) Urine Appearance Sl cloudy A (CLEAR) Urine pH 5 (5-7) Ur Specific Gravit y 1.020 (1.005-1.030) Urine Protein 3+ H (Negative) Urine Glucose (UA) Norm (Normal) Urine Ketones 1+ H (Negative) Urine Blood 3+ H (Negative) Urine Nitrate Negative (Negative) Urine Bilirubin 1+ H (NEGATIVE) Urine Urobilinogen 1 H (Negative) mg/dL Ur Leukocyte Shea ase Trace H (Negative) Urine RBC 50-80 H (0-2) /hpf Urine WBC 15-25 H (0-5) /hpf Ur Squamous Epith Cells None (0-5) Amorphous Sediment 2+ Urine Bacteria 1+ H (NONE) EKG Data^: EKG 1: Computer generated interpretation: Chest X-Ray 02/23/20 15:58
[2020-02-23 16:16] LABS: Basophils # 0.1 10^3/uL (0.0-0.1); Basophils % 0.6 %; Eosinophils % 0.4 %; Hematocrit 29.2 % (42.0-52.0); Hemoglobin 8.3 g/dL (11.7-16.6); Lymphocytes # 0.4 10^3/uL (0.8-4.8); Lymphocytes % 4.3 %; Mean Corpuscular HGB Conc 28.4 g/dL (30.0-36.0); Mean Corpuscular Hemoglobin 25.6 pg (28.0-34.0); Mean Corpuscular Volume 90.1 fL (80-94); Mean Platelet Volume 9.7 fL (7.4-10.4); Monocytes # 1.4 10^3/uL (0.2-0.9); Monocytes % 14.6 %; Neutrophils # 7.83 10^3/uL (1.8-7.7); Neutrophils % 79.5 %; Nucleated Red Blood Cells % 0 %; Platelet Count 332 10^3/cmm (130-400); Red Blood Count 3.24 10^6/uL (4.1-5.3); Red Cell Distribution Width 16.3 % (12.1-15.1); White Blood Count 9.9 10^3/uL (4.0-10.0)
[2020-02-23 16:32] LABS: Alanine Aminotransferase 86 U/L (0-41); Albumin Level 3.9 g/dL (3.5-5.2); Alkaline Phosphatase 78 IU/L (40-130); Anion Gap 16.8 (5-19); Aspartate Amino Transferase 156 U/L (0-40); Blood Urea Nitrogen 44 mg/dL (8-23); Carbon Dioxide 38 mmol/L (22-29); Chloride 89 mmol/L (98-107); Globulin 3.8 g/dL (1.3-4.6); Glomerular Filtration Rate 40.3 mL/min (90-130); Glucose 101 mg/dL (65-115); Osmolality Calculated 286 mOsm/kg (285-295); Potassium 4.8 mmol/L (3.5-5.1); Sodium 139 mmol/L (136-145); Total Bilirubin 0.5 mg/dL (0.15-1.2); Total Protein 7.7 g/dL (6.6-8.7)
[2020-02-23 16:33] LABS: Lactic Sepsis W/Reflex 2.1 mmol/L (0.5-2.2)
[2020-02-23] MEDS: sodium chloride 0.9% 1,000 ML 150 ML IV (16:37)
[2020-02-23] MEDS: metoprolol tartrate 1 mg/1 mL SDV 5 mL 5 MG IV (17:14)
[2020-02-23 17:57] LABS: Reflex Lactate Order REFLEX LACTIC ORDERD
[2020-02-23 18:19] LABS: Urine Color Yellow (Yellow); pH Urine 5 (5-7)
[2020-02-23 18:20] LABS: Add Urine Microscopic? YES; Bilirubin Urine 1+ (NEGATIVE); Blood Urine 3+ (Negative); Glucose Urine UA Norm (Normal); Ketones Urine 1+ (Negative); Leukocyte Esterase Urine Trace (Negative); Nitrate Urine Negative (Negative); Protein Urine 3+ (Negative); Urobilinogen Urine 1 mg/dL (Negative)
[2020-02-23 18:21] LABS: Add Urine Culture? Yes; Amorphous Sediment Urine 2+; Bacteria Urine 1+; RBC Urine 50-80 /hpf (0-2); WBC Urine 15-25 /hpf (0-5)
[2020-02-23] MEDS: cefTRIAXone 1,000 MG in sodium chloride 0.9% (plus) 50 ML 100 MG IV (19:00)
--- NOTE | 2020-02-23 20:35 | PC.NURSE ---
AT THIS TIME THIS NURSE WENT IN TO HANG ROCEPIN AND FOUND THAT ROCEPHIN HAD ALREADY BEEN GIVEN BY ARNOLDO BRIDGES RN PRIOR TO THIS NURSE ARRIVING. PT'S ROCEPHIN IS INFUSED INTO IV IN RT FOREARM.
--- NOTE | 2020-02-23 22:55 | P.HP_ITS ---
Providers/Chief Complaint Primary Care Provider: Avel Chacko MD Chief Complaint: CATH PLACEMENT/ POSSIBLE DEHYDRATION History of Present Illness Sarthak Ortiz is a 69 year old male advanced COPD 6 L oxygen dependent at home, rheumatoid arthritis, chronic anemia, chronic indwelling catheter currently, diastolic congestive heart failure, getting home health services presented with chief complaint of his Howard catheter not draining. patient had a recent admission to the hospital when he was admitted for community-acquired pneumonia, was discharged on doxycycline and prednisone taper. He was asked to follow-up with Dr. Bill for possible EGD for his chronic anemia which has not been done yet. Of note, I have seen this patient previously as well his CTA chest on previous admission revealed pulmonary fibrosis bilateral pleural effusion severe emphysematous changes. Patient is stating that he was on home hospice for his end-stage COPD which was rescinded by himself since then he has been having home health [facility] his multiple comorbid conditions. He is using 5 to 6 L of oxygen at home, use walker for ambulation, he has not noticed any fever but he is endorsing orthopnea, PND uses diuretics, he is endorsing that his lower extremity swelling is better than before, he is sleeping in a recliner. Currently he is denying chest pain, palpitations, abdominal pain, dysuria, diarrhea. He is endorsing sore throat, myalgias, fatigue, productive cough. Diagnosis in the ER revealed persistent tachycardia A. fib RVR not a candidate for anticoagulation, ABG showed compensated respiratory hypercapnia, chronic an emia, SHRADDHA, CT abdomen was requested which did not show any hydronephrosis, COVID test has been ordered because of lymphopenia He had received about 1.5 L in the ER, received Levaquin for possible cystitis however denying symptoms. Review of Systems Const: Reports: chills, body aches, fatigue and malaise; Denies: fever(s) Eyes: Denies: change in vision ENMT: Reports: dry mouth and other (Endorses sore throat) Card: Reports: swelling of feet/ankles, dyspnea on exertion and orthopnea; Denies: chest pain Resp: Reports: dyspnea and productive cough GI: Denies: abdominal pain, heartburn or bloating : Denies: flank pain or difficulty urinating Musc: Reports: extremity swelling Skin/Breast: Reports: lesions Neuro: Denies: headache(s) Psych: Denies: anxiety Endo: Denies: polyuria Lyle/Lymph: Denies: easy bruising All/Imm: Denies: urticaria Medications/Allergies Home Medications Medication Instructions Recorded Confirmed Last Taken Type Incruse Ellipta 1 inh INHALATION DAILY 11/22/19 02/23/20 Unknown History albuterol sulfate 2 puff INHALATION Q6H PRN 11/22/19 02/23/20 Unknown History budesonide-formoterol 1 puff INHALATION BID 11/22/19 02/23/20 Unknown History carvedilol 3.125 mg PO BID 11/22/19 02/23/20 Unknown History docusate sodium 100 mg PO DAILY 11/22/19 02/23/20 Unknown History hydroxychloroquine 200 mg PO BID 11/22/19 02/23/20 Unknown History ipratropium bromide 1 ml INHALATION QID PRN 11/22/19 02/23/20 Unknown History lorazepam 0.5 mg PO Q6H PRN 11/22/19 02/23/20 Unknown History metolazone See Rx Instructions .ROUTE .COMPLEX 11/22/19 02/23/20 11/21/19 History prednisone 20 mg PO DAILY 11/22/19 02/23/20 Unknown History sennosides [senna] 8.6 mg PO BID 11/22/19 02/23/20 Unknown History spironolacton-hydrochlorothiaz 1 tab PO DAILY 11/22/19 02/23/20 11/21/19 History sulfasalazine 1 g PO BID 11/22/19 02/23/20 Unknown History furosemide See Rx Instructions .ROUTE 01/22/20 02/23/20 Unknown Rx .COMPLEX #45 tab potassium chloride [Klor-Con M20] 40 meq PO BIDWM #0 tab 01/22/20 02/23/20 Unknown Rx diphenhydramine HCl [Benadryl] 25 mg PO TID PRN 02/23/20 02/23/20 Unknown History famotidine 20 mg PO DAILY 02/23/20 02/23/20 Unknown History gabapentin 300 mg PO BID 02/23/20 02/23/20 Unknown History pantoprazole [Protonix] 40 mg PO DAILY 02/23/20 02/23/20 Unknown History potassium chloride 20 meq PO BID 02/23/20 02/23/20 Unknown History sulfamethoxazole-trimethoprim 1 tab PO BID 7 Days #14 tab 02/23/20 Unknown Rx Allergies Allergy/AdvReac Type Severity Reaction Status Date / Time No Known Drug Allergies Allergy Unknown Verified 01/20/20 08:29 PFSH Acute PFSH: Medical History CKD (chronic kidney disease) Congestive heart failure CVA (cerebral vascular accident) Diabetes mellitus type 2 in nonobese DNR (do not resuscitate) End stage COPD Hypertension Normocytic anemia Obstructive sleep apnea Pulmonary fibrosis Rheumatoid arthritis Surgical History History of inguinal hernia repair History of tonsillectomy Family History Father Lung disease Social History Smoking and tobacco status: former smoker Alcohol intake: never Household members: none Housing: Apartment Vitals/I&O/Wt Last Vital Signs Temp 98.3 F 02/23/20 15:52 Pulse 113 H 02/23/20 22:00 Resp 18 02/23/20 22:00 BP 93/69 02/23/20 22:00 Pulse Ox 97 02/23/20 22:00 02/23/20 02/23/20 02/23/20 06:59 14:59 22:59 Intake Total 650 / 650 Balance 650 / 650 Weight last 48 hrs Weight 74.843 kg Physical Exam Narrative: EXAM NARRATIVE: This is a very frail elderly male Currently saturating well on 6 L nasal cannula Has pursed lip breathing Cachexia and muscle mass loss evident Diminished breath sounds with wheezing positive S1-S2 mild signs of CHF exacerbation, lower extremity shows 1+ pitting edema I could see skin cracks of lower extremities shows improvement in his edema Abdomen soft nontender nondistended bowel sound present Neurologically nonfocal exam Gait was not tested EOMI, PERRLA I did not see any purulent tonsillar area or hyperemic posterior pharyngeal wall and patient was complaining of sore throat Urinary Catheter Management^: Howard: Cath Placed During This Visit: yes Urinary Catheter Date of Insertion: 02/23/20 Urinary Catheter Time of Insertion: 16:34 Data : 02/23/20 16:05 02/23/20 16:05 Micro: Microbiology 02/23/20 16:00 Blood Culture - Preliminary Blood SPECIMEN COLLECTED 02/23/20 16:05 Blood Culture - Preliminary Blood SPECIMEN COLLECTED A&P Assessment and plan (1) Dehydration: Status: Acute (2) Atrial fibrillation and flutter: Status: Acute (3) Normocytic anemia: Status: Acute (4) Rheumatoid arthritis: Status: Acute (5) Obstructive sleep apnea: Status: Acute (6) Acute worsening of stage 3 chronic kidney disease: Status: Acute (7) Pulmonary fibrosis: Status: Acute (8) End stage COPD: Status: Acute (9) UTI (urinary tract infection): Status: Acute Qualifiers: Encounter type: initial encounter Indwelling urinary catheter type: indwelling urethral catheter Urinary tract infection type: catheter-associated UTI Qualified Code(s): T83.511A - Infection and inflammatory reaction due to indwelling urethral catheter, initial encounter; N39.0 - Urinary tract infection, site not specified Additional A&P Information Persistent tachycardia irregular heart rhythm Skin wrinkling evident on lower extremities Emaciated with prominent muscle mass loss Would avoid IV fluids for long-term, I will discontinue his IV fluids for now, lung showing worsening of vascular congestion Not a candidate of anticoagulation because of chronic anemia Continue AV erick blocking agent End-stage COPD without acute exacerbation CT chest is showing pulmonary fibrosis with interstitial prominence/groundglass opacities which I believe is secondary to pulmonary fibrosis with underlying chronic CHF exacerbation, wheezing positive Currently saturating well on 6 L nasal cannula, ABG showed compensated hypercapnia COVID PCR ordered because of lymphopenia, sore throat and myalgia Bilateral pleural effusion chronic Would do a azithromycin for anti-inflammatory effect Diastolic?Congestive heart failure mild exacerbation Cardiac wheezing positive, mild edema of lower extremity Discontinue IV fluid Secondary to hypotension would avoid higher dose of Lasix DuoNeb BiPAP Would request BNP Acute on chronic kidney disease stage II-III I believe this is secondary to CHF exacerbation No hydronephrosis on CT abdomen, Howard catheter has been replaced, 25 cc urine output obtained only Hold spironolactone, On review of previous records patient required Howard catheter because of resistant hypervolemia, genital edematous state, I do suspect that because of lack of follow-up he has not been evaluated for removal of catheter, considering his end-stage COPD he is avoiding to go to the bathroom because of extreme shortness of breath on mild activities and is requesting his Howard catheter to be replaced instead of completely removed To avoid potential recurrent UTIs I would encourage to have his Howard catheter removed on discharge Recurrent UTIs Previous culture grew enterococcus sensitive to Levaquin It seems to be colonization as well no leukocytosis patient is afebrile no signs of sepsis DNR/DNI, daughter at the bedside as well Cardiac diet DVT prophylaxis SCDs I highly doubt patient will be able to lay flat for EGD or colonoscopy Attestations Medical Necessity Statement*: Anticipating discharge in less than 48 hours currently need overnight monitoring because of SHRADDHA, COVID needs to be ruled out Time Spent in Patient Care: (>than 50% of time spent in counselling and/or direct pt care on unit) . 50 minutes Coding Level of Care Code Acute Dealer Accounts Investigator for Chg Fwd Diagnoses Dehydration E86.0 Atrial fibrillation and flutter I48.91; I48.92 Normocytic anemia D64.9 Rheumatoid arthritis M06.9 Obstructive sleep apnea G47.33 Acute worsening of stage 3 chronic kidney disease N18.3 Pulmonary fibrosis J84.10 End stage COPD J44.9 UTI (urinary tract infection) T83.511A; N39.0 Encounter type: initial encounter Indwelling urinary catheter type: indwelling urethral catheter Urinary tract infection type: catheter-associated UTI
[2020-02-23] MEDS: sodium chloride 0.9% 1,000 ML 999 ML IV (23:15)
[2020-02-23] MEDS: levofloxacin-dextrose 5 % 750 MG/150 ML PREMIX 150 MG IV (23:19)
[2020-02-23] MEDS: ipratropium-albuterol 3 mL Neb 9 ML INHALATION (23:30)
--- NOTE | 2020-02-23 23:43 | CTR_ITS ---
PROCEDURE INFORMATION: Exam: CT Abdomen And Pelvis Without Contrast Exam date and time: 02/23/2020 11:50 PM Age: 69 years old Clinical indication: Other: Hydronephrosis; Prior surgery; Surgery type: Hernia repair TECHNIQUE: Imaging protocol: Computed tomography of the abdomen and pelvis without contrast. Radiation optimization: All CT scans at this facility use at least one of these dose optimization techniques: automated exposure control; mA and/or kV adjustment per patient size (includes targeted exams where dose is matched to clinical indication); or iterative reconstruction. COMPARISON: CT Chest/Abdomen/Pelvis w IV* 04/12/2017 7:45 AM RADIATION DOSE METRICS: Total DLP (mGy-cm): 1357.88 FINDINGS: Tubes, catheters and devices: A balloon bladder catheter is present. Lungs: There is severe emphysematous changes. There is ground-glass and interstitial prominence in the lungs increased since the prior exam concerning for CHF/pneumonitis with patchy pneumonic infiltrates. Pleural space: There are bilateral small pleural effusions. There is new bilateral pleural thickening concerning for bilateral empyema or malignant effusions. Heart: The heart is enlarged. Trace pericardial effusion versus pericardial thickening is noted. Mediastinal space: A small hiatal hernia is present. Liver: There is hepatomegaly. Gallbladder and bile ducts: There is probable sludge in the gallbladder. Pancreas: Normal. No ductal dilation. Spleen: Normal. No splenomegaly. Adrenals: Normal. No mass. Kidneys and ureters: There is no evidence of hydronephrosis. There is an unchanged 3.0 cm midpole simple cyst in the right kidney. Stomach and bowel: There is no evidence of intestinal perforation or obstruction. There is no evidence of colitis/diverticulitis. Appendix: The appendix is not definitively identified. However, there is no CT evidence of a right lower quadrant inflammatory process. Intraperitoneal space: There is a small amount of ascites. Vasculature: The aorta demonstrates mild atherosclerotic calcification. Lymph nodes: Unremarkable.No enlarged lymph nodes. Bladder: Unremarkable as visualized. Reproductive: Unremarkable as visualized. Bones/joints: Unremarkable. No acute fracture. Soft tissues: There is diffuse induration of the subcutaneous fat and mesenteric fat compatible with anasarca type changes. There is a fat-containing umbilical hernia. CT/CT abdomen pelvis wo con [id number] IMPRESSION: 1. There is severe emphysematous changes. There is ground-glass and interstitial prominence in the lungs increased since the prior exam concerning for CHF/pneumonitis with patchy pneumonic infiltrates. 2. There are pleural effusions with pleural thickening concerning for empyema versus malignant effusions. 3. There is diffuse induration of the subcutaneous fat and mesenteric fat compatible with anasarca type changes. There is a small amount of ascites. 4. There is no hydronephrosis. No bowel thickening or inflammatory changes. Radiation Dose CTDIVOL = (mGy): DLP = 1357.88 (mGy-cm)
[2020-02-23 23:44] LABS: ABG PH Result 7.36 (7.35-7.45); Arterial Blood Gas Hematocrit 25.1 % (42-52); Base Excess ABG 8.3 mmol/L (-2.0-2.0); Blood Gas Sample Type Arterial; HCO3 ABG 34.8 mmol/L (22-26)
[2020-02-23 23:47] LABS: ABG PCO2 61.2 mmHg (35-45); Blood Gas Operator Identificat HARKR
[2020-02-23 23:48] LABS: Blood Gas Sample Site Brachial, right; Oxygen Device NC
[2020-02-24] VITALS: BP 91/63; PULSE 116; RESP 20; TEMP 36.6; O2SAT 97
[2020-02-24] MEDS: pneumococcal (23 valent) SDV 0.5 mL IM (01:04)
[2020-02-24] MEDS: sodium chloride 0.9% 1,000 ML 30 ML IV (01:07)
--- NOTE | 2020-02-24 03:58 | PC.NURSE ---
Pt left AMA, called Dr. Washington and reported this, called Pt's daughter and educated her on the fact that we swabbed Pt for covid, she stated oh well, he wants to come home so I'm going to come and get him . AMA paperwork signed and Pt wheeled down stairs and assisted into daughters car by wheelchair. All belongings taken with him at time of departure.
--- NOTE | 2020-02-24 06:42 | PM.EVENT ---
Event Note Event Note: 2 to 3 hours after his admission patient called his daughter and decided to leave AGAINST MEDICAL ADVICE, all the risks and complications were explained to the patient and his daughter they were in agreement and wanted to leave and go home
--- NOTE | 2020-02-24 14:14 | PC.RESP ---
Pulmonary Rehab information sent to patient.
[2020-02-25 14:21] LABS: Coronavirus Lab Test PTC SEE REPORT
== END 2020-02-24 03:45 | disposition left against medical advice (07) ==
LOC: ER 20:34 → MEDSURG 23:20
PROVIDERS: Emergency Medicine; Nurse Practitioner Family; Admitting Provider Internal Medicine; Emergency Provider Physician Assistant; PCP Family Medicine; Visit Provider Internal Medicine
DX: E86.0 Dehydration (principal); I48.91 Unspecified atrial fibrillation; D64.9 Anemia, unspecified; M06.9 Rheumatoid arthritis, unspecified; G47.33 Obstructive sleep apnea (adult) (pediatric); N18.3 Chronic kidney disease, stage 3 (moderate); J84.10 Pulmonary fibrosis, unspecified; J44.9 Chronic obstructive pulmonary disease, unspecified; T83.511A Infection and inflammatory reaction due to indwelling urethral catheter, initial encounter; N39.0 Urinary tract infection, site not specified; N13.39 Other hydronephrosis; Z99.81 Dependence on supplemental oxygen; Z79.52 Long term (current) use of systemic steroids; Z86.73 Personal history of transient ischemic attack (TIA), and cerebral infarction without residual deficits; E11.9 Type 2 diabetes mellitus without complications; Z66 Do not resuscitate; Z87.891 Personal history of nicotine dependence; Z53.29 Procedure and treatment not carried out because of patient's decision for other reasons
CPT/HCPCS: 12345; 36600; 51702; 71045; 74176; 80053; 81001; 81003; 82803; 83605; 85025; 87040; 87086; 87635; 90471; 90732; 93005; 94640; 96361; 96365; 96367; 96375; 99284; 99285; G0378; J0696; J1956; J3490; J7030

== ENCOUNTER 2020-02-26 15:28 | Inpatient (IN) | payer MEDICARE, MEDICAID, SELFPAY ==
[2020-02-26] VITALS (29 sets, daily range): BP systolic 81–148; BP diastolic 59–80; PULSE 70–117; RESP 5–27; TEMP 35.8–36.3; O2SAT 84–100; BMI 21.7
--- NOTE | 2020-02-26 15:34 | CTR_ITS ---
PROCEDURE INFORMATION: Exam: CT Head Without Contrast Exam date and time: 02/26/2020 3:46 PM Age: 69 years old Clinical indication: Altered mental status/memory loss; Additional info: Weakness TECHNIQUE: Imaging protocol: Computed tomography of the head without contrast. Radiation optimization: All CT scans at this facility use at least one of these dose optimization techniques: automated exposure control; mA and/or kV adjustment per patient size (includes targeted exams where dose is matched to clinical indication); or iterative reconstruction. COMPARISON: No relevant prior studies available. RADIATION DOSE METRICS: Total DLP (mGy-cm): 1585.73 FINDINGS: Brain: Normal. No hemorrhage. Unremarkable white matter. No mass effect. Ventricles: Normal. No ventriculomegaly. Bones/joints: Unremarkable. No acute fracture. Sinuses: Visualized sinuses are unremarkable. No fluid levels. Mastoid air cells: Visualized mastoid air cells are well aerated. Soft tissues: Unremarkable. CT/CT head wo con* [id number] IMPRESSION: No acute intracranial abnormality. Radiation Dose CTDIVOL = (mGy): DLP = 1585.73 (mGy-cm)
--- NOTE | 2020-02-26 15:34 | XRR_ITS ---
PROCEDURE INFORMATION: Exam: XR Chest, 1 View Exam date and time: 02/26/2020 3:38 PM Age: 69 years old Clinical indication: Other: Weakness TECHNIQUE: Imaging protocol: XR of the chest Views: 1 view. COMPARISON: CR XR chest 1V portable [id number] 02/23/2020 4:05 PM FINDINGS: Lungs: Bilateral lower lobe interstitial congestion is seen. No consolidation. Pleural space: Right lower lobe pleural effusion. No pneumothorax. Heart/Mediastinum: Unremarkable. No cardiomegaly. Bones/joints: Unremarkable. Other findings: Comparison to prior examination similar findings seen XR/XR chest 1V portable [id number] IMPRESSION: 1. Right lower lobe pleural effusion. 2. Bilateral lower lobe interstitial congestion
[2020-02-26 15:57] LABS: Basophils % 0.4 %; Eosinophils % 0.2 %; Hematocrit 33.6 % (42.0-52.0); Hemoglobin 9.1 g/dL (11.7-16.6); Lymphocytes # 0.5 10^3/uL (0.8-4.8); Lymphocytes % 6.2 %; Mean Corpuscular HGB Conc 27.1 g/dL (30.0-36.0); Mean Corpuscular Hemoglobin 25.6 pg (28.0-34.0); Mean Corpuscular Volume 94.4 fL (80-94); Mean Platelet Volume 9.9 fL (7.4-10.4); Monocytes # 0.7 10^3/uL (0.2-0.9); Monocytes % 8.5 %; Neutrophils # 6.83 10^3/uL (1.8-7.7); Neutrophils % 84.1 %; Nucleated Red Blood Cells % 0.5 %; Platelet Count 344 10^3/cmm (130-400); Red Blood Count 3.56 10^6/uL (4.1-5.3); Red Cell Distribution Width 16.4 % (12.1-15.1); White Blood Count 8.1 10^3/uL (4.0-10.0)
--- NOTE | 2020-02-26 15:57 | ECG_ITS ---
[facility] Test Date: 2020-02-26 Pat Name: Sarthak Ortiz Department: Room: Gender: Male [employer]: : 1950 Requested By: Robe Mendez Order Number: [id number] Milad MD: Marcella Shahid M.D. Measurements Intervals [place] Rate: 105 P: AR: -1 QRS: 66 QRSD: 116 T: 63 QT: 371 QTc: 490 Interpretive Statements ATRIAL FLUTTER/TACHYCARDIA WITH RAPID VENTRICULAR RESPONSE LOW QRS VOLTAGE IN EXTREMITY LEADS [QRS DEFLECTION < 0.5 mV IN LIMB LEADS] MODERATE INTRAVENTRICULAR CONDUCTION DELAY [110+ ms QRS DURATION] MODERATE ST DEPRESSION [0.05+ mV ST DEPRESSION] Compared to ECG 02/23/2020 16:09:23 Intraventricular conduction delay now present ST (T wave) deviation now present T-wave abnormality no longer present Electronically Signed On 02-27-2020 9:27:00 CDT by Marcella Shahid M.D. [id number]
--- NOTE | 2020-02-26 16:07 | ED_ITS ---
Documented by User: Robe Price DO 02/26/20 16:10 HPI - Weakness General: Chief complaint: Weakness Stated complaint: WEAKNESS Time Seen by Provider: 02/26/20 15:33 History of Present Illness: HPI Narrative: Member reports that the patient was seen here 3 days ago. At that time he was diagnosed with urinary tract infection admitted to the hospital. Patient signed himself out of the hospital AMA early the next morning. Family member states that since taking the patient home he has not moved from his chair. He has not been taking his medications. Patient has been incontinent of stool. Complaint: generalized weakness Onset (ago): day(s) Duration: constant and progressively worsening Location: generalized Severity: severe Associated symptoms: Reports confusion and decreased appetite Review of Systems General: Reports: 10 or more systems reviewed and unremarkable except in HPI and below Neuro: Reports: confusion PFS ED PFSH: Medical History (Updated 02/26/20 @ 18:46 by Gordy Monteiro MD) CKD (chronic kidney disease) Congestive heart failure CVA (cerebral vascular accident) Diabetes mellitus type 2 in nonobese DNR (do not resuscitate) End stage COPD Hypertension Normocytic anemia Obstructive sleep apnea Pulmonary fibrosis Rheumatoid arthritis Surgical History History of inguinal hernia repair History of tonsillectomy Family History Father Lung disease Social History Smoking and tobacco status: former smoker Alcohol intake: never Household members: none Housing: Apartment Physical Exam Const: GENERAL APPEARANCE: lethargic, ill appearing, frail appearing and Limp noted ORIENTATION/CONSCIOUSNESS: Yes lethargic HENMT: COMMON NORMALS: normocephalic, atraumatic, external ears normal and Normal external nose present HEAD & SCALP: normocephalic and atraumatic FACE & SINUS: normal facial exam NOSE: Normal external nose present EXTERNAL EAR: Yes external ears normal MOUTH: Normal oral and palatal mucosa present Neck/C-Spine: COMMON NORMALS: full ROM, no lymphadenopathy, supple, no meningeal signs and no JVD GENERAL: Yes normal visual inspection Resp: COMMON NORMALS: normal respiratory effort, No retractions, No use of accessory muscles and clear to auscultation bilaterally AUSCULTATION: clear to auscultation bilaterally Cardio: COMMON NORMALS: no JVD, regular rate and regular rhythm RATE: regular rate RHYTHM: regular rhythm GI: COMMON NORMALS: Normal to inspection, nondistended, normoactive bowel sounds present, Soft to palpation, non-tender, No hepatosplenomegaly present and no masses INSPECTION: Yes normal to inspection AUSCULTATION: Yes normoactive bowel sounds PALPATION: Yes Soft to palpation and Yes No hepatosplenomegaly present PERCUSSION: normal to percussion : COMMON NORMALS: Yes no CVA tenderness BLADDER/KIDNEY EXAM: Yes no CVA tenderness Back/Pelvis: COMMON NORMALS: no CVA tenderness, thoracic and lumbar spine normal to inspection, no thoracic nor lumbar tenderness, thoraco-lumbar ROM normal and straight leg raise negative bilaterally Extremity: COMMON NORMALS: normal to inspection, full ROM, capillary refill normal, no joint enlargement, no clubbing, cyanosis or edema, no calf tenderness and no pedal edema Neuro: COMMON NORMALS: moves all extremities, no focal motor deficits and no sensory deficits noted SENSORIUM/ORIENTATION: Yes lethargic MENINGEAL SIGNS: Yes no meningeal signs Psych: APPEARANCE: Yes disheveled ACTIVITY/MOTOR BEHAVIOR: Yes psychomotor slowing Skin: COMMON NORMALS: no rashes or lesions noted, no wounds, turgor normal, no jaundice, no petechiae and no mottling GENERAL SKIN EXAM: no rashes or lesions noted and turgor normal Course Vital Signs: Vital signs: Vital Signs Temperature 97.4 F L 02/26/20 15:28 Pulse Rate 99 02/26/20 18:30 Respiratory Rate 20 H 02/26/20 18:30 Blood Pressure 102/78 02/26/20 18:30 Pulse Oximetry 98 02/26/20 18:30 MDM - Weakness Lab Data: Labs: Lab Results 02/26/20 02/26/20 02/26/20 Range/Units 15:15 15:15 15:15 WBC 8.1 (4.0-10.0) 10^3/ uL RBC 3.56 L (4.1-5.3) 10^6/u L Hgb 9.1 L (11.7-16.6) g/dL Hct 33.6 L (42.0-52.0) % MCV 94.4 H (80-94) fL MCH 25.6 L (28.0-34.0) pg MCHC 27.1 L (30.0-36.0) g/dL RDW 16.4 H (12.1-15.1) % Plt Count 344 (130-400) 10^3/c mm MPV 9.9 (7.4-10.4) fL Neut % (Auto) 84.1 % Lymph % (Auto) 6.2 % [place] % (Auto) 8.5 % Eos % (Auto) 0.2 % Baso % (Auto) 0.4 % Neut # (Auto) 6.83 (1.8-7.7) 10^3/u L Lymph # (Auto) 0.5 L (0.8-4.8) 10^3/u L [place] # (Auto) 0.7 (0.2-0.9) 10^3/u L Eos # (Auto) 0.0 (0.0-0.8) 10^3/u L Baso # (Auto) 0.0 (0.0-0.1) 10^3/u L Nucleated RBC % (a uto) 0.5 % Nucleated RBCs # 0.0 /100WBC D-Dimer (0-0.59) ug/mIFE U Specimen Type Sample Site ABG pH (7.35-7.45) ABG pCO2 (35-45) mmHg ABG pO2 (80.0-100.0) mmH g ABG HCO3 (22-26) mmol/L ABG Base Excess (-2.0-2.0) mmol/ L Aleksey Test Hematocrit (42-52) % O2 Delivery Device O2 Liters/Min % FiO2 % Career Based Intervention Coordinator ID Sodium 133 L (136-145) mmol/L Potassium 6.4 H (3.5-5.1) mmol/L Chloride 90 L (98-107) mmol/L Carbon Dioxide 31 H (22-29) mmol/L Anion Gap 18.4 (5-19) BUN 77 H (8-23) mg/dL Creatinine 2.6 H (0.7-1.2) mg/dL GFR Calculation 24.7 L (90-130) mL/min Glucose 76 (65-115) mg/dL Calculated Osmolal ity 274 L (285-295) mOsm/k g Lactate (0.5-2.2) mmol/L Calcium 8.8 (8.5-10.5) mg/dL Total Bilirubin 0.4 (0.15-1.2) mg/dL AST 127 H (0-40) U/L ALT 111 H (0-41) U/L Alkaline Phosphata se 88 (40-130) IU/L Troponin T Baselin e 60 H (0-15) ng/L Troponin T 120 [place] (0-15) ng/L Delta Troponin T (0-10) ABS# NT-Pro-B Natriuret Pep 5151 H (0-125) pg/mL Total Protein 8.2 (6.6-8.7) g/dL Albumin 4.0 (3.5-5.2) g/dL Globulin 4.2 (1.3-4.6) g/dL Lipase 314 H (13-60) U/L Procalcitonin (0-0.5) ng/mL TSH 0.51 (0.27-4.20) uIU/ mL Urine Color (Yellow) Urine Appearance (CLEAR) Urine pH (5-7) Ur Specific Gravit y (1.005-1.030) Urine Protein (Negative) Urine Glucose (UA) (Normal) Urine Ketones (Negative) Urine Blood (Negative) Urine Nitrate (Negative) Urine Bilirubin (NEGATIVE) Urine Urobilinogen (Negative) mg/dL Ur Leukocyte Shea ase (Negative) Urine RBC (0-2) /hpf Urine WBC (0-5) /hpf Ur Squamous Epith Cells (0-5) Amorphous Sediment Urine Bacteria (NONE) SARS-CoV-2 Ag (Rap id) (Negative) 02/26/20 02/26/20 02/26/20 Range/Units 15:15 15:15 16:15 WBC (4.0-10.0) 10^3/ uL RBC (4.1-5.3) 10^6/u L Hgb (11.7-16.6) g/dL Hct (42.0-52.0) % MCV (80-94) fL MCH (28.0-34.0) pg MCHC (30.0-36.0) g/dL RDW (12.1-15.1) % Plt Count (130-400) 10^3/c mm MPV (7.4-10.4) fL Neut % (Auto) % Lymph % (Auto) % [place] % (Auto) % Eos % (Auto) % Baso % (Auto) % Neut # (Auto) (1.8-7.7) 10^3/u L Lymph # (Auto) (0.8-4.8) 10^3/u L [place] # (Auto) (0.2-0.9) 10^3/u L Eos # (Auto) (0.0-0.8) 10^3/u L Baso # (Auto) (0.0-0.1) 10^3/u L Nucleated RBC % (a uto) % Nucleated RBCs # /100WBC D-Dimer 9.58 H (0-0.59) ug/mIFE U Specimen Type Sample Site ABG pH (7.35-7.45) ABG pCO2 (35-45) mmHg ABG pO2 (80.0-100.0) mmH g ABG HCO3 (22-26) mmol/L ABG Base Excess (-2.0-2.0) mmol/ L Aleksey Test Hematocrit (42-52) % O2 Delivery Device O2 Liters/Min % FiO2 % Career Based Intervention Coordinator ID Sodium (136-145) mmol/L Potassium (3.5-5.1) mmol/L Chloride (98-107) mmol/L Carbon Dioxide (22-29) mmol/L Anion Gap (5-19) BUN (8-23) mg/dL Creatinine (0.7-1.2) mg/dL GFR Calculation (90-130) mL/min Glucose (65-115) mg/dL Calculated Osmolal ity (285-295) mOsm/k g Lactate 1.9 (0.5-2.2) mmol/L Calcium (8.5-10.5) mg/dL Total Bilirubin (0.15-1.2) mg/dL AST (0-40) U/L ALT (0-41) U/L Alkaline Phosphata se (40-130) IU/L Troponin T Baselin e (0-15) ng/L Troponin T 120 [place] (0-15) ng/L Delta Troponin T (0-10) ABS# NT-Pro-B Natriuret Pep (0-125) pg/mL Total Protein (6.6-8.7) g/dL Albumin (3.5-5.2) g/dL Globulin (1.3-4.6) g/dL Lipase (13-60) U/L Procalcitonin 0.40 (0-0.5) ng/mL TSH (0.27-4.20) uIU/ mL Urine Color (Yellow) Urine Appearance (CLEAR) Urine pH (5-7) Ur Specific Gravit y (1.005-1.030) Urine Protein (Negative) Urine Glucose (UA) (Normal) Urine Ketones (Negative) Urine Blood (Negative) Urine Nitrate (Negative) Urine Bilirubin (NEGATIVE) Urine Urobilinogen (Negative) mg/dL Ur Leukocyte Shea ase (Negative) Urine RBC (0-2) /hpf Urine WBC (0-5) /hpf Ur Squamous Epith Cells (0-5) Amorphous Sediment Urine Bacteria (NONE) SARS-CoV-2 Ag (Rap id) (Negative) 02/26/20 02/26/20 02/26/20 Range/Units 16:44 16:53 17:07 WBC (4.0-10.0) 10^3/ uL RBC (4.1-5.3) 10^6/u L Hgb (11.7-16.6) g/dL Hct (42.0-52.0) % MCV (80-94) fL MCH (28.0-34.0) pg MCHC (30.0-36.0) g/dL RDW (12.1-15.1) % Plt Count (130-400) 10^3/c mm MPV (7.4-10.4) fL Neut % (Auto) % Lymph % (Auto) % [place] % (Auto) % Eos % (Auto) % Baso % (Auto) % Neut # (Auto) (1.8-7.7) 10^3/u L Lymph # (Auto) (0.8-4.8) 10^3/u L [place] # (Auto) (0.2-0.9) 10^3/u L Eos # (Auto) (0.0-0.8) 10^3/u L Baso # (Auto) (0.0-0.1) 10^3/u L Nucleated RBC % (a uto) % Nucleated RBCs # /100WBC D-Dimer (0-0.59) ug/mIFE U Specimen Type Arterial Sample Site Brachial, left ABG pH 7.13 L* (7.35-7.45) ABG pCO2 97.8 H* (35-45) mmHg ABG pO2 37.6 L* (80.0-100.0) mmH g ABG HCO3 32.7 H (22-26) mmol/L ABG Base Excess 1.9 (-2.0-2.0) mmol/ L Aleksey Test N/a Hematocrit 29.0 L (42-52) % O2 Delivery Device Nc O2 Liters/Min 6.0 % FiO2 44.0 % Career Based Intervention Coordinator ID Ed Sodium (136-145) mmol/L Potassium (3.5-5.1) mmol/L Chloride (98-107) mmol/L Carbon Dioxide (22-29) mmol/L Anion Gap (5-19) BUN (8-23) mg/dL Creatinine (0.7-1.2) mg/dL GFR Calculation (90-130) mL/min Glucose (65-115) mg/dL Calculated Osmolal ity (285-295) mOsm/k g Lactate (0.5-2.2) mmol/L Calcium (8.5-10.5) mg/dL Total Bilirubin (0.15-1.2) mg/dL AST (0-40) U/L ALT (0-41) U/L Alkaline Phosphata se (40-130) IU/L Troponin T Baselin e (0-15) ng/L Troponin T 120 [place] (0-15) ng/L Delta Troponin T (0-10) ABS# NT-Pro-B Natriuret Pep (0-125) pg/mL Total Protein (6.6-8.7) g/dL Albumin (3.5-5.2) g/dL Globulin (1.3-4.6) g/dL Lipase (13-60) U/L Procalcitonin (0-0.5) ng/mL TSH (0.27-4.20) uIU/ mL Urine Color Yellow (Yellow) Urine Appearance Cloudy (CLEAR) Urine pH 5 (5-7) Ur Specific Gravit y 1.030 (1.005-1.030) Urine Protein 1+ H (Negative) Urine Glucose (UA) Norm (Normal) Urine Ketones Negative (Negative) Urine Blood 3+ H (Negative) Urine Nitrate Negative (Negative) Urine Bilirubin 1+ H (NEGATIVE) Urine Urobilinogen Norm (Negative) mg/dL Ur Leukocyte Shea ase 2+ H (Negative) Urine RBC 10-15 H (0-2) /hpf Urine WBC Too numerous to c nt H (0-5) /hpf Ur Squamous Epith Cells None (0-5) Amorphous Sediment Not Reportable Urine Bacteria 1+ H (NONE) SARS-CoV-2 Ag (Rap id) Negative (Negative) 02/26/20 Range/Units 17:17 WBC (4.0-10.0) 10^3/ uL RBC (4.1-5.3) 10^6/u L Hgb (11.7-16.6) g/dL Hct (42.0-52.0) % MCV (80-94) fL MCH (28.0-34.0) pg MCHC (30.0-36.0) g/dL RDW (12.1-15.1) % Plt Count (130-400) 10^3/c mm MPV (7.4-10.4) fL Neut % (Auto) % Lymph % (Auto) % [place] % (Auto) % Eos % (Auto) % Baso % (Auto) % Neut # (Auto) (1.8-7.7) 10^3/u L Lymph # (Auto) (0.8-4.8) 10^3/u L [place] # (Auto) (0.2-0.9) 10^3/u L Eos # (Auto) (0.0-0.8) 10^3/u L Baso # (Auto) (0.0-0.1) 10^3/u L Nucleated RBC % (a uto) % Nucleated RBCs # /100WBC D-Dimer (0-0.59) ug/mIFE U Specimen Type Sample Site ABG pH (7.35-7.45) ABG pCO2 (35-45) mmHg ABG pO2 (80.0-100.0) mmH g ABG HCO3 (22-26) mmol/L ABG Base Excess (-2.0-2.0) mmol/ L Aleksey Test Hematocrit (42-52) % O2 Delivery Device O2 Liters/Min % FiO2 % Career Based Intervention Coordinator ID Sodium (136-145) mmol/L Potassium (3.5-5.1) mmol/L Chloride (98-107) mmol/L Carbon Dioxide (22-29) mmol/L Anion Gap (5-19) BUN (8-23) mg/dL Creatinine (0.7-1.2) mg/dL GFR Calculation (90-130) mL/min Glucose (65-115) mg/dL Calculated Osmolal ity (285-295) mOsm/k g Lactate (0.5-2.2) mmol/L Calcium (8.5-10.5) mg/dL Total Bilirubin (0.15-1.2) mg/dL AST (0-40) U/L ALT (0-41) U/L Alkaline Phosphata se (40-130) IU/L Troponin T Baselin e (0-15) ng/L Troponin T 120 [place] 53.64 H (0-15) ng/L Delta Troponin T -6.36 L (0-10) ABS# NT-Pro-B Natriuret Pep (0-125) pg/mL Total Protein (6.6-8.7) g/dL Albumin (3.5-5.2) g/dL Globulin (1.3-4.6) g/dL Lipase (13-60) U/L Procalcitonin (0-0.5) ng/mL TSH (0.27-4.20) uIU/ mL Urine Color (Yellow) Urine Appearance (CLEAR) Urine pH (5-7) Ur Specific Gravit y (1.005-1.030) Urine Protein (Negative) Urine Glucose (UA) (Normal) Urine Ketones (Negative) Urine Blood (Negative) Urine Nitrate (Negative) Urine Bilirubin (NEGATIVE) Urine Urobilinogen (Negative) mg/dL Ur Leukocyte Shea ase (Negative) Urine RBC (0-2) /hpf Urine WBC (0-5) /hpf Ur Squamous Epith Cells (0-5) Amorphous Sediment Urine Bacteria (NONE) SARS-CoV-2 Ag (Rap id) (Negative) Discharge Plan Discharge Patient Disposition: Admitted As Inpatient Admit Provider: Gordy Monteiro Clinical Impression: Atrial fibrillation and flutter, End stage COPD, Generalized weakness, Acute hyperkalemia Acute renal failure superimposed on chronic kidney disease Qualifiers: Acute renal failure type: unspecified Chronic kidney disease stage: unspecified stage Qualified Code(s): N17.9 - Acute kidney failure, unspecified CHF (congestive heart failure) Qualifiers: Heart failure type: unspecified Heart failure chronicity: unspecified Qualified Code(s): I50.9 - Heart failure, unspecified Acute pancreatitis Qualifiers: Pancreatitis type: unspecified pancreatitis type Acute pancreatitis complication: unspecified Qualified Code(s): K85.90 - Acute pancreatitis without necrosis or infection, unspecified Condition: Fair Referrals: Avel Chacko MD [Primary Care Provider] - Coding Level of Care Code ED Nuclear Pharmacist for Chg Fwd Exam Comprehensive Documented by User: Riya Acosta 02/26/20 19:15 HPI - Weakness General: Chief complaint: Weakness Stated complaint: WEAKNESS Time Seen by Provider: 02/26/20 15:33 PFSH ED PFSH: Medical History (Updated 02/26/20 @ 18:46 by Gordy Monteiro MD) CKD (chronic kidney disease) Congestive heart failure CVA (cerebral vascular accident) Diabetes mellitus type 2 in nonobese DNR (do not resuscitate) End stage COPD Hypertension Normocytic anemia Obstructive sleep apnea Pulmonary fibrosis Rheumatoid arthritis Surgical History History of inguinal hernia repair History of tonsillectomy Family History Father Lung disease Social History Smoking and tobacco status: former smoker Alcohol intake: never Household members: none Housing: Apartment Course Vital Signs: Vital signs: Vital Signs Temperature 97.4 F L 02/26/20 15:28 Pulse Rate 99 02/26/20 18:30 Respiratory Rate 20 H 02/26/20 18:30 Blood Pressure 102/78 02/26/20 18:30 Pulse Oximetry 98 02/26/20 18:30 MDM - Weakness MDM Narrative: Medical decision making narrative: Patient's chart was in my list of signatures but at no time that I see this patient. There is no other way to remove this patient's chart from my list without signing it. This note is to reflect the patient was never seen by me and at no time that I involve myself in his care. Lab Data: Labs: Lab Results 02/26/20 02/26/20 02/26/20 Range/Units 15:15 15:15 15:15 WBC 8.1 (4.0-10.0) 10^3/ uL RBC 3.56 L (4.1-5.3) 10^6/u L Hgb 9.1 L (11.7-16.6) g/dL Hct 33.6 L (42.0-52.0) % MCV 94.4 H (80-94) fL MCH 25.6 L (28.0-34.0) pg MCHC 27.1 L (30.0-36.0) g/dL RDW 16.4 H (12.1-15.1) % Plt Count 344 (130-400) 10^3/c mm MPV 9.9 (7.4-10.4) fL Neut % (Auto) 84.1 % Lymph % (Auto) 6.2 % [place] % (Auto) 8.5 % Eos % (Auto) 0.2 % Baso % (Auto) 0.4 % Neut # (Auto) 6.83 (1.8-7.7) 10^3/u L Lymph # (Auto) 0.5 L (0.8-4.8) 10^3/u L [place] # (Auto) 0.7 (0.2-0.9) 10^3/u L Eos # (Auto) 0.0 (0.0-0.8) 10^3/u L Baso # (Auto) 0.0 (0.0-0.1) 10^3/u L Nucleated RBC % (a uto) 0.5 % Nucleated RBCs # 0.0 /100WBC D-Dimer (0-0.59) ug/mIFE U Specimen Type Sample Site ABG pH (7.35-7.45) ABG pCO2 (35-45) mmHg ABG pO2 (80.0-100.0) mmH g ABG HCO3 (22-26) mmol/L ABG Base Excess (-2.0-2.0) mmol/ L Aleksey Test Hematocrit (42-52) % O2 Delivery Device O2 Liters/Min % FiO2 % Career Based Intervention Coordinator ID Sodium 133 L (136-145) mmol/L Potassium 6.4 H (3.5-5.1) mmol/L Chloride 90 L (98-107) mmol/L Carbon Dioxide 31 H (22-29) mmol/L Anion Gap 18.4 (5-19) BUN 77 H (8-23) mg/dL Creatinine 2.6 H (0.7-1.2) mg/dL GFR Calculation 24.7 L (90-130) mL/min Glucose 76 (65-115) mg/dL Calculated Osmolal ity 274 L (285-295) mOsm/k g Lactate (0.5-2.2) mmol/L Calcium 8.8 (8.5-10.5) mg/dL Total Bilirubin 0.4 (0.15-1.2) mg/dL AST 127 H (0-40) U/L ALT 111 H (0-41) U/L Alkaline Phosphata se 88 (40-130) IU/L Troponin T Baselin e 60 H (0-15) ng/L Troponin T 120 [place] (0-15) ng/L Delta Troponin T (0-10) ABS# NT-Pro-B Natriuret Pep 5151 H (0-125) pg/mL Total Protein 8.2 (6.6-8.7) g/dL Albumin 4.0 (3.5-5.2) g/dL Globulin 4.2 (1.3-4.6) g/dL Lipase 314 H (13-60) U/L Procalcitonin (0-0.5) ng/mL TSH 0.51 (0.27-4.20) uIU/ mL Urine Color (Yellow) Urine Appearance (CLEAR) Urine pH (5-7) Ur Specific Gravit y (1.005-1.030) Urine Protein (Negative) Urine Glucose (UA) (Normal) Urine Ketones (Negative) Urine Blood (Negative) Urine Nitrate (Negative) Urine Bilirubin (NEGATIVE) Urine Urobilinogen (Negative) mg/dL Ur Leukocyte Shea ase (Negative) Urine RBC (0-2) /hpf Urine WBC (0-5) /hpf Ur Squamous Epith Cells (0-5) Amorphous Sediment Urine Bacteria (NONE) SARS-CoV-2 Ag (Rap id) (Negative) 02/26/20 02/26/20 02/26/20 Range/Units 15:15 15:15 16:15 WBC (4.0-10.0) 10^3/ uL RBC (4.1-5.3) 10^6/u L Hgb (11.7-16.6) g/dL Hct (42.0-52.0) % MCV (80-94) fL MCH (28.0-34.0) pg MCHC (30.0-36.0) g/dL RDW (12.1-15.1) % Plt Count (130-400) 10^3/c mm MPV (7.4-10.4) fL Neut % (Auto) % Lymph % (Auto) % [place] % (Auto) % Eos % (Auto) % Baso % (Auto) % Neut # (Auto) (1.8-7.7) 10^3/u L Lymph # (Auto) (0.8-4.8) 10^3/u L [place] # (Auto) (0.2-0.9) 10^3/u L Eos # (Auto) (0.0-0.8) 10^3/u L Baso # (Auto) (0.0-0.1) 10^3/u L Nucleated RBC % (a uto) % Nucleated RBCs # /100WBC D-Dimer 9.58 H (0-0.59) ug/mIFE U Specimen Type Sample Site ABG pH (7.35-7.45) ABG pCO2 (35-45) mmHg ABG pO2 (80.0-100.0) mmH g ABG HCO3 (22-26) mmol/L ABG Base Excess (-2.0-2.0) mmol/ L Aleksey Test Hematocrit (42-52) % O2 Delivery Device O2 Liters/Min % FiO2 % Career Based Intervention Coordinator ID Sodium (136-145) mmol/L Potassium (3.5-5.1) mmol/L Chloride (98-107) mmol/L Carbon Dioxide (22-29) mmol/L Anion Gap (5-19) BUN (8-23) mg/dL Creatinine (0.7-1.2) mg/dL GFR Calculation (90-130) mL/min Glucose (65-115) mg/dL Calculated Osmolal ity (285-295) mOsm/k g Lactate 1.9 (0.5-2.2) mmol/L Calcium (8.5-10.5) mg/dL Total Bilirubin (0.15-1.2) mg/dL AST (0-40) U/L ALT (0-41) U/L Alkaline Phosphata se (40-130) IU/L Troponin T Baselin e (0-15) ng/L Troponin T 120 [place] (0-15) ng/L Delta Troponin T (0-10) ABS# NT-Pro-B Natriuret Pep (0-125) pg/mL Total Protein (6.6-8.7) g/dL Albumin (3.5-5.2) g/dL Globulin (1.3-4.6) g/dL Lipase (13-60) U/L Procalcitonin 0.40 (0-0.5) ng/mL TSH (0.27-4.20) uIU/ mL Urine Color (Yellow) Urine Appearance (CLEAR) Urine pH (5-7) Ur Specific Gravit y (1.005-1.030) Urine Protein (Negative) Urine Glucose (UA) (Normal) Urine Ketones (Negative) Urine Blood (Negative) Urine Nitrate (Negative) Urine Bilirubin (NEGATIVE) Urine Urobilinogen (Negative) mg/dL Ur Leukocyte Shea ase (Negative) Urine RBC (0-2) /hpf Urine WBC (0-5) /hpf Ur Squamous Epith Cells (0-5) Amorphous Sediment Urine Bacteria (NONE) SARS-CoV-2 Ag (Rap id) (Negative) 02/26/20 02/26/20 02/26/20 Range/Units 16:44 16:53 17:07 WBC (4.0-10.0) 10^3/ uL RBC (4.1-5.3) 10^6/u L Hgb (11.7-16.6) g/dL Hct (42.0-52.0) % MCV (80-94) fL MCH (28.0-34.0) pg MCHC (30.0-36.0) g/dL RDW (12.1-15.1) % Plt Count (130-400) 10^3/c mm MPV (7.4-10.4) fL Neut % (Auto) % Lymph % (Auto) % [place] % (Auto) % Eos % (Auto) % Baso % (Auto) % Neut # (Auto) (1.8-7.7) 10^3/u L Lymph # (Auto) (0.8-4.8) 10^3/u L [place] # (Auto) (0.2-0.9) 10^3/u L Eos # (Auto) (0.0-0.8) 10^3/u L Baso # (Auto) (0.0-0.1) 10^3/u L Nucleated RBC % (a uto) % Nucleated RBCs # /100WBC D-Dimer (0-0.59) ug/mIFE U Specimen Type Arterial Sample Site Brachial, left ABG pH 7.13 L* (7.35-7.45) ABG pCO2 97.8 H* (35-45) mmHg ABG pO2 37.6 L* (80.0-100.0) mmH g ABG HCO3 32.7 H (22-26) mmol/L ABG Base Excess 1.9 (-2.0-2.0) mmol/ L Aleksey Test N/a Hematocrit 29.0 L (42-52) % O2 Delivery Device Nc O2 Liters/Min 6.0 % FiO2 44.0 % Career Based Intervention Coordinator ID Ed Sodium (136-145) mmol/L Potassium (3.5-5.1) mmol/L Chloride (98-107) mmol/L Carbon Dioxide (22-29) mmol/L Anion Gap (5-19) BUN (8-23) mg/dL Creatinine (0.7-1.2) mg/dL GFR Calculation (90-130) mL/min Glucose (65-115) mg/dL Calculated Osmolal ity (285-295) mOsm/k g Lactate (0.5-2.2) mmol/L Calcium (8.5-10.5) mg/dL Total Bilirubin (0.15-1.2) mg/dL AST (0-40) U/L ALT (0-41) U/L Alkaline Phosphata se (40-130) IU/L Troponin T Baselin e (0-15) ng/L Troponin T 120 Min [place] (0-15) ng/L Delta Troponin T (0-10) ABS# NT-Pro-B Natriuret Pep (0-125) pg/mL Total Protein (6.6-8.7) g/dL Albumin (3.5-5.2) g/dL Globulin (1.3-4.6) g/dL Lipase (13-60) U/L Procalcitonin (0-0.5) ng/mL TSH (0.27-4.20) uIU/ mL Urine Color Yellow (Yellow) Urine Appearance Cloudy (CLEAR) Urine pH 5 (5-7) Ur Specific Gravit y 1.030 (1.005-1.030) Urine Protein 1+ H (Negative) Urine Glucose (UA) Norm (Normal) Urine Ketones Negative (Negative) Urine Blood 3+ H (Negative) Urine Nitrate Negative (Negative) Urine Bilirubin 1+ H (NEGATIVE) Urine Urobilinogen Norm (Negative) mg/dL Ur Leukocyte Shea a[place] 2+ H (Negative) Urine RBC 10-15 H (0-2) /hpf Urine WBC Too numerous to c nt H (0-5) /hpf Ur Squamous Epith Cells None (0-5) Amorphous Sediment Not Reportable Urine Bacteria 1+ H (NONE) SARS-CoV-2 Ag (Rap id) Negative (Negative) 02/26/20 Range/Units 17:17 WBC (4.0-10.0) 10^3/ uL RBC (4.1-5.3) 10^6/u L Hgb (11.7-16.6) g/dL Hct (42.0-52.0) % MCV (80-94) fL MCH (28.0-34.0) pg MCHC (30.0-36.0) g/dL RDW (12.1-15.1) % Plt Count (130-400) 10^3/c mm MPV (7.4-10.4) fL Neut % (Auto) % Lymph % (Auto) % [place] % (Auto) % Eos % (Auto) % Baso % (Auto) % Neut # (Auto) (1.8-7.7) 10^3/u L Lymph # (Auto) (0.8-4.8) 10^3/u L [place] # (Auto) (0.2-0.9) 10^3/u L Eos # (Auto) (0.0-0.8) 10^3/u L Baso # (Auto) (0.0-0.1) 10^3/u L Nucleated RBC % (a uto) % Nucleated RBCs # /100WBC D-Dimer (0-0.59) ug/mIFE U Specimen Type Sample Site ABG pH (7.35-7.45) ABG pCO2 (35-45) mmHg ABG pO2 (80.0-100.0) mmH g ABG HCO3 (22-26) mmol/L ABG Base Excess (-2.0-2.0) mmol/ L Aleksey Test Hematocrit (42-52) % O2 Delivery Device O2 Liters/Min % FiO2 % Career Based Intervention Coordinator ID Sodium (136-145) mmol/L Potassium (3.5-5.1) mmol/L Chloride (98-107) mmol/L Carbon Dioxide (22-29) mmol/L Anion Gap (5-19) BUN (8-23) mg/dL Creatinine (0.7-1.2) mg/dL GFR Calculation (90-130) mL/min Glucose (65-115) mg/dL Calculated Osmolal ity (285-295) mOsm/k g Lactate (0.5-2.2) mmol/L Calcium (8.5-10.5) mg/dL Total Bilirubin (0.15-1.2) mg/dL AST (0-40) U/L ALT (0-41) U/L Alkaline Phosphata se (40-130) IU/L Troponin T Baselin e (0-15) ng/L Troponin T 120 Min [place] 53.64 H (0-15) ng/L Delta Troponin T -6.36 L (0-10) ABS# NT-Pro-B Natriuret Pep (0-125) pg/mL Total Protein (6.6-8.7) g/dL Albumin (3.5-5.2) g/dL Globulin (1.3-4.6) g/dL Lipase (13-60) U/L Procalcitonin (0-0.5) ng/mL TSH (0.27-4.20) uIU/ mL Urine Color (Yellow) Urine Appearance (CLEAR) Urine pH (5-7) Ur Specific Gravit y (1.005-1.030) Urine Protein (Negative) Urine Glucose (UA) (Normal) Urine Ketones (Negative) Urine Blood (Negative) Urine Nitrate (Negative) Urine Bilirubin (NEGATIVE) Urine Urobilinogen (Negative) mg/dL Ur Leukocyte Shea a[place] (Negative) Urine RBC (0-2) /hpf Urine WBC (0-5) /hpf Ur Squamous Epith Cells (0-5) Amorphous Sediment Urine Bacteria (NONE) SARS-CoV-2 Ag (Rap id) (Negative) Discharge Plan Discharge Patient Disposition: Admitted As Inpatient Admit Provider: Gordy Monteiro Clinical Impression: Atrial fibrillation and flutter, End stage COPD, Generalized weakness, Acute hyperkalemia Acute renal failure superimposed on chronic kidney disease Qualifiers: Acute renal failure type: unspecified Chronic kidney disease stage: unspecified stage Qualified Code(s): N17.9 - Acute kidney failure, unspecified CHF (congestive heart failure) Qualifiers: Heart failure type: unspecified Heart failure chronicity: unspecified Qualified Code(s): I50.9 - Heart failure, unspecified Acute pancreatitis Qualifiers: Pancreatitis type: unspecified pancreatitis type Acute pancreatitis complication: unspecified Qualified Code(s): K85.90 - Acute pancreatitis without necrosis or infection, unspecified Condition: Fair Referrals: Avel Chacko MD [Primary Care Provider] - Coding Level of Care Code ED Nuclear Pharmacist for [facility] Fwd Exam Comprehensive
[2020-02-26 16:26] LABS: Alanine Aminotransferase 111 U/L (0-41); Alkaline Phosphatase 88 IU/L (40-130); Blood Urea Nitrogen 77 mg/dL (8-23); Calcium 8.8 mg/dL (8.5-10.5); Carbon Dioxide 31 mmol/L (22-29); Chloride 90 mmol/L (98-107); Globulin 4.2 g/dL (1.3-4.6); Glomerular Filtration Rate 24.7 mL/min (90-130); Glucose 76 mg/dL (65-115); NT Pro B Type Natriuretic Pept 5151 pg/mL (0-125); Osmolality Calculated 274 mOsm/kg (285-295); Sodium 133 mmol/L (136-145); Thyroid Stimulating Hormone 0.51 uIU/mL (0.27-4.20); Total Bilirubin 0.4 mg/dL (0.15-1.2); Total Protein 8.2 g/dL (6.6-8.7)
[2020-02-26] MEDS: sodium chloride 0.9% 1,000 ML 999 ML IV (16:30)
--- NOTE | 2020-02-26 16:36 | PC.NURSE ---
FULL BED CHANGE FOR INCONTINENCE OF BOWEL.
[2020-02-26 16:37] LABS: Anion Gap 18.4 (5-19)
[2020-02-26 16:38] LABS: Aspartate Amino Transferase 127 U/L (0-40); Potassium 6.4 mmol/L (3.5-5.1)
[2020-02-26 16:39] LABS: Lipase 314 U/L (13-60)
[2020-02-26 16:40] LABS: Troponin(5th) Baseline 60 ng/L (0-15)
[2020-02-26 16:46] LABS: Lactate (Lactic Acid level) 1.9 mmol/L (0.5-2.2)
[2020-02-26] MEDS: piperacillin-tazobactam 3.375 GM in sodium chloride 0.9% (plus) 50 ML IV (16:47)
[2020-02-26 17:16] LABS: Base Excess ABG 1.9 mmol/L (-2.0-2.0); Blood Gas Sample Type Arterial; HCO3 ABG 32.7 mmol/L (22-26); PO2 ABG 37.6 mmHg (80.0-100.0)
[2020-02-26 17:18] LABS: Blood Gas Operator Identificat ED; Blood Gas Sample Site Brachial, left; Oxygen Device NC
[2020-02-26 17:49] LABS: SARS Covid-2 Antigen Negative (Negative)
[2020-02-26 17:49] LABS: Troponin 5 2HR 53.64 ng/L (0-15)
[2020-02-26 17:51] LABS: Glucose Urine UA Norm (Normal); Ketones Urine Negative (Negative); Protein Urine 1+ (Negative); Urine Appearance Cloudy (CLEAR); Urine Color Yellow (Yellow); pH Urine 5 (5-7)
[2020-02-26 17:52] LABS: Add Urine Culture? Yes; Add Urine Microscopic? YES; Bacteria Urine 1+; Bilirubin Urine 1+ (NEGATIVE); Blood Urine 3+ (Negative); Leukocyte Esterase Urine 2+ (Negative); Nitrate Urine Negative (Negative); Urobilinogen Urine Norm (Negative); WBC Urine TOO NUMEROUS TO CNT /hpf (0-5)
--- NOTE | 2020-02-26 17:57 | ECG_ITS ---
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 Measurements Intervals [place] Rate: 105 P: [place]: -1 QRS: 62 QRSD: 112 T: 55 QT: 369 QTc: 489 Interpretive Statements ATRIAL FLUTTER/TACHYCARDIA WITH RAPID VENTRICULAR RESPONSE LOW QRS VOLTAGE IN EXTREMITY LEADS [QRS DEFLECTION < 0.5 mV IN LIMB LEADS] MODERATE INTRAVENTRICULAR CONDUCTION DELAY [110+ ms QRS DURATION] MODERATE ST DEPRESSION [0.05+ mV ST DEPRESSION] Compared to ECG 02/26/2020 16:39:00 No significant changes Electronically Signed On 02-27-2020 9:42:28 CDT by Marcella Shahid M.D. [id number]
[2020-02-26 18:01] LABS: Troponin 5 2HR Delta -6.36 ABS# (0-10)
--- NOTE | 2020-02-26 18:30 | CTR_ITS ---
PROCEDURE INFORMATION: Exam: CT Chest Without Contrast Exam date and time: 02/26/2020 6:36 PM Age: 69 years old Clinical indication: Shortness of breath; Prior surgery; Surgery date: 6+ months; Surgery type: Hernia; Patient HX: Pneumonia and stanislaw; Additional info: Pna, stanislaw TECHNIQUE: Imaging protocol: Computed tomography of the chest without contrast. Radiation optimization: All CT scans at this facility use at least one of these dose optimization techniques: automated exposure control; mA and/or kV adjustment per patient size (includes targeted exams where dose is matched to clinical indication); or iterative reconstruction. COMPARISON: CT abdomen pelvis wo con [id number] 02/24/2020 12:03 AM RADIATION DOSE METRICS: Total DLP (mGy-cm): 1414.16 FINDINGS: Lungs: There is severe emphysematous changes. Nonspecific bibasilar consolidation is present, consistent with atelectasis, edema, or pneumonia. There is mild improvement in the right lower lobe masslike area of consolidation on the prior exam. This may been consolidation and/or atelectasis. Pleural space: There is a larger now moderate sized right pleural effusion pleural thickening and a few air bubbles within the fluid concerning for empyema. There is and unchanged small left basilar pleural effusion with mild pleural thickening. Heart: The heart is enlarged. There is a small pericardial fluid collection present. Mediastinal space: A small hiatal hernia is present. Aorta: The ascending thoracic aorta measures 4.1 cm. Lymph nodes: Unremarkable. No enlarged lymph nodes. Bones/joints: Unremarkable. No acute fracture. Soft tissues: Unremarkable. Other findings: No aneurysm or dissection is identified on this exam. IMPRESSION: 1. There is a larger now moderate sized right pleural effusion pleural thickening and a few air bubbles within the fluid concerning for empyema. 2. Nonspecific bibasilar consolidation is present, consistent with atelectasis, edema, or pneumonia. Unchanged small left pleural effusion pleural thickening. PROCEDURE INFORMATION: Exam: CT Abdomen And Pelvis Without Contrast Exam date and time: 02/26/2020 6:36 PM Age: 69 years old Clinical indication: Shortness of breath; Prior surgery; Surgery date: 6+ months; Surgery type: Hernia; Patient HX: Pneumonia and stanislaw; Additional info: Pna, stanislaw TECHNIQUE: Imaging protocol: Computed tomography of the abdomen and pelvis without contrast. Radiation optimization: All CT scans at this facility use at least one of these dose optimization techniques: automated exposure control; mA and/or kV adjustment per patient size (includes targeted exams where dose is matched to clinical indication); or iterative reconstruction. COMPARISON: CT abdomen pelvis wo con [id number] 02/24/2020 12:03 AM RADIATION DOSE METRICS: Total DLP (mGy-cm): 1414.16 FINDINGS: Liver: Unremarkable.No mass. Gallbladder and bile ducts: Normal. No calcified stones. No ductal dilation. Pancreas: Normal. No ductal dilation. Spleen: Normal. No splenomegaly. Adrenals: Normal. No mass. Kidneys and ureters: There is no evidence of hydronephrosis. There is no evidence of renal calcifications. Bilateral simple renal cysts are noted. Stomach and bowel: There is no evidence of intestinal perforation or obstruction. There is no evidence of colitis/diverticulitis. Appendix: No evidence of appendicitis. Intraperitoneal space: There is a small amount of ascites. There is no free intraperitoneal air or abscess. Vasculature: Unremarkable.No abdominal aortic aneurysm. Lymph nodes: Unremarkable.No enlarged lymph nodes. Bladder: The bladder is decompressed. A balloon bladder catheter is present. Reproductive: Unremarkable as visualized. Bones/joints: Unremarkable. No acute fracture. Soft tissues: There is diffuse induration of the subcutaneous fat and mesenteric fat compatible with anasarca type changes. There is a fat-containing umbilical hernia. CT/CT chest abd pel wo con IMPRESSION: 1. Unchanged exam. There is unchanged diffuse induration of the subcutaneous fat and mesenteric fat compatible with anasarca type changes. 2. No bowel thickening or inflammatory changes. No hydronephrosis. COMMENTS: Consistent with the [employer]'s Incidental Findings Committee white paper (J Am Juliane Radiol 2018): Any incidental renal lesion less than 1.0 cm or classified as too small to characterize, or any incidental cystic renal lesion characterized as simple-appearing, is likely benign. No follow-up imaging is recommended for these lesions per consensus recommendations based on imaging criteria. Radiation Dose CTDIVOL = (mGy): DLP = 1414.16~1414.16 (mGy-cm)
[2020-02-26 18:31] LABS: ABG PCO2 97.8 mmHg (35-45); ABG PH Result 7.13 (7.35-7.45)
--- NOTE | 2020-02-26 18:37 | P.HP_ITS ---
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 On previous admission he was admitted for community-acquired pneumonia and was discharged on doxycycline prednisone taper and was advised to follow-up with Dr. Resendiz for possible EGD given chronic anemia. CTA chest done at that time showed pulmonary fibrosis with bilateral pleural effusion and severe emphysematous changes. As per the daughter who is at bedside since patient left AMA he was doing fine but has been having decreased appetite and has been getting progressively weak. Patient lives by himself and has a home health who comes and checks up on him. Patient usually is ambulated to the house through his walker. As per the daughter it seems patient has not been getting out of his chair since they left him at home on Thursday library assistant as he was still sitting in the same position and in the same clothes that he had left him. Patient states he has been having his medications regularly but has not been eating well. Patient states he has been having cough which is slightly more than his usual and has been producing phlegm which is thick, mucoid, yellowish in color but not foul-smelling or bloodstained. Patient has a chronic Howard and as per the patient the color of urine has not changed. He denies of having any dysuria. He denies of having any diarrhea, chest pain, headache, dizziness, palpitations, malaise, fever, subjective fever, myalgia, PND, orthopnea. Diagnostic in the ER revealed white count of 8.1, hemoglobin of 9.1, no left shift, ABG showing a pH of 7.1, PCO2 of 97.8, PO2 of 37.6, sodium of 133, potassium of 6.4, chloride of 90, carbon dioxide of 91, BUN of 77, creatinine of 2.6, AST ALT of 127/1 1 1, proBNP of 5151, lipase of 314, UA consistent with 2+ leuk esterase and numerous WBCs with rapid COVID-19 test negative. Review of Systems General: Reports: 10 or more systems reviewed and unremarkable except in HPI and below Const: Reports: change in weight; Denies: fever(s), chills, body aches, change in appetite, malaise, night sweats, diaphoresis, change in sleep pattern, daytime sleepiness or snoring Eyes: Denies: change in vision, blurry vision, photophobia, eye discomfort or eye discharge ENMT: Denies: throat pain, enlarged tonsils, hoarseness, mouth pain, oral so res, dry mouth, tinnitus, nasal congestion or post nasal drip Card: Denies: chest pain, palpitations, irregular heart rhythm, edema, swelling of feet/ankles, lightheadedness, syncope, pre-syncope, dyspnea on exertion, orthopnea, leg pain with exertion or acrocyanosis Resp: Reports: dyspnea, productive cough, wheezing, change in phlegm color and chest congestion; Denies: non-productive cough, stridor, pain on inspiration or hemoptysis GI: Denies: abdominal pain, nausea, vomiting, hematemesis, coffee ground emesis, dysphagia, heartburn, diarrhea, constipation, bloating, GI cramping, change in bowel habits, pain on defecation, hematochezia or melena : Denies: flank pain, difficulty urinating, dysuria, urinary frequency, urinary urgency, urinary hesitancy, urinary dribbling, difficulty starting urination, change in urine stream, nocturia or hematuria Musc: Denies: neck pain, back pain, extremity pain, joint pain, joint swelling, joint redness, joint stiffness or limited range of motion Neuro: Denies: headache(s), numbness in extremities, weakness in extremities, sensory changes, lack of coordination, difficulty walking, frequent falls, dizziness, vertigo, confusion, Slurred speech present, difficulty communicating thoughts or seizure-like activity Psych: Denies: anxiety, depression, mood swings, panic attacks, hopelessness or irritability Endo: Denies: polyuria, polydipsia, tired all the time, cold intolerance, ex cessive sweating, flushing or heat intolerance Lyle/Lymph: Denies: easy bruising or easy bleeding All/Imm: Denies: tongue swelling, facial swelling or acute wheezing Medications/Allergies Home Medications Medication Instructions Recorded Confirmed Last Taken Type Incruse Ellipta 1 inh INHALATION DAILY 11/22/19 02/26/20 Unknown History albuterol sulfate 2 puff INHALATION Q6H PRN 11/22/19 02/26/20 Unknown History budesonide-formoterol 1 puff INHALATION BID 11/22/19 02/26/20 Unknown History carvedilol 3.125 mg PO BID 11/22/19 02/26/20 Unknown History docusate sodium 100 mg PO DAILY 11/22/19 02/26/20 Unknown History hydroxychloroquine 200 mg PO BID 11/22/19 02/26/20 Unknown History ipratropium bromide 1 ml INHALATION QID PRN 11/22/19 02/26/20 Unknown History lorazepam 0.5 mg PO Q6H PRN 11/22/19 02/26/20 Unknown History metolazone See Rx Instructions .ROUTE .COMPLEX 11/22/19 02/26/20 11/21/19 Hist ory prednisone 20 mg PO DAILY 11/22/19 02/26/20 Unknown History sennosides [senna] 8.6 mg PO BID 11/22/19 02/26/20 Unknown History spironolacton-hydrochlorothiaz 1 tab PO DAILY 11/22/19 02/26/20 11/21/19 History sulfasalazine 1 g PO BID 11/22/19 02/26/20 Unknown History furosemide See Rx Instructions .ROUTE 01/22/20 02/26/20 Unknown Rx .COMPLEX #45 tab potassium chloride [Klor-Con M20] 40 meq PO BIDWM #0 tab 01/22/20 02/26/20 Unknown Rx diphenhydramine HCl [Benadryl] 25 mg PO TID PRN 02/23/20 02/26/20 Unknown History famotidine 20 mg PO DAILY 02/23/20 02/26/20 Unknown History gabapentin 300 mg PO BID 02/23/20 02/26/20 Unknown History pantoprazole [Protonix] 40 mg PO DAILY 02/23/20 02/26/20 Unknown History potassium chloride 20 meq PO BID 02/23/20 02/26/20 Unknown History sulfamethoxazole-trimethoprim 1 tab PO BID 7 Days #14 tab 02/23/20 02/26/20 Unknown Rx Allergies Allergy/AdvReac Type Severity Reaction Status Date / Time No Known Drug Allergies Allergy Unknown Verified 01/20/20 08:29 PFSH Acute PFSH: Medical History (Updated 02/26/20 @ 18:46 by Gordy Monteiro MD) CKD (chronic kidney disease) Congestive heart failure CVA (cerebral vascular accident) Diabetes mellitus type 2 in nonobese DNR (do not resuscitate) End stage COPD Hypertension Normocytic anemia Obstructive sleep apnea Pulmonary fibrosis Rheumatoid arthritis Surgical History History of inguinal hernia repair History of tonsillectomy Family History Father Lung disease Social History Smoking and tobacco status: former smoker Alcohol intake: never Household members: none Housing: Apartment Vitals/I&O/Wt Last Vital Signs Temp 97.4 F L 02/26/20 15:28 Pulse 107 H 02/26/20 17:00 Resp 25 H 02/26/20 17:00 BP 95/65 02/26/20 17:00 Pulse Ox 100 02/26/20 17:00 Weight last 48 hrs Weight 64.864 kg Physical Exam Narrative: EXAM NARRATIVE: General: No acute distress, AO x3, weak, dehydrated HEENT: PERRLA, pupils bilaterally equal and reactive Chest: Normal vesicular breath sounds, no added sounds, equal good air entry bilaterally CVS: S1-S2 tachycardia, irregularly irregular, no murmurs, no gallops, no rubs Abdomen: Soft, nontender, no organomegaly, bowel sounds present Neuro: No focal deficits, no facial deformity, AO x3, power 5/5 in all limbs Data : 02/27/20 04:10 02/27/20 04:10 Micro: Microbiology 02/26/20 16:15 Blood Culture - Preliminary Blood SPECIMEN COLLECTED 02/26/20 16:10 Blood Culture - Preliminary Blood SPECIMEN COLLECTED A&P Assessment and plan (1) Sepsis with acute hypoxic respiratory failure: Status: Acute (2) UTI (urinary tract infection): Status: Acute Qualifiers: Encounter type: initial encounter Indwelling urinary catheter type: indwelling urethral catheter Urinary tract infection type: catheter-associated UTI Qualified Code(s): T83.511A - Infection and inflammatory reaction due to indwelling urethral catheter, initial encounter; N39.0 - Urinary tract infection, site not specified (3) End stage COPD: Status: Acute (4) CHF (congestive heart failure): Status: Acute Qualifiers: Heart failure chronicity: unspecified Heart failure type: unspecified Qualified Code(s): I50.9 - Heart failure, unspecified (5) Acute renal failure superimposed on chronic kidney disease: Status: Acute Qualifiers: Acute renal failure type: unspecified Chronic kidney disease stage: unspecified stage Qualified Code(s): N17.9 - Acute kidney failure, unspecified; N18.9 - Chronic kidney disease, unspecified (6) Acute hyperkalemia: Status: Acute (7) Dehydration: Status: Acute (8) Atrial fibrillation and flutter: Status: Acute (9) Normocytic anemia: Status: Acute (10) Diabetes mellitus type 2 in nonobese: Status: Acute (11) Hypertension: Status: Acute (12) DNR (do not resuscitate): Status: Acute (13) Pulmonary fibrosis: Status: Acute (14) Generalized weakness: Status: Acute Additional A&P Information Sepsis: Criteria met through tachycardia, hypotension, tachypnea. Acute hypoxic respiratory failure: Most likely secondary to pneumonia on top of end-stage COPD because of severe pulmonary fibrosis. We will get CT chest abdomen pelvis without contrast. Patient was recently in hospital so we will start patient on hospital-acquired pneumonia therapy. Start patient on vancomycin and Zosyn both renally dosed. Stat blood cultures, sputum culture Gram stain, urine culture, lactate, procalcitonin, MRSA swab, Legionella, flu swab. We will check patient for COVID-19. Contact and droplet isolation until the results come back. Oxygen supplementation keeping saturation over 90%. Advair, Spiriva. For now we will hold off on steroids but if patient worsens can start him on methylprednisolone. History of diastolic heart failure: Last echocardiogram done in October shows an EF of 65% with diastolic heart failure with RVSP of 10.4 mmHg. 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 We will gently hydrate patient with normal saline at 50 cc/h while monitoring his fluid status. Patient is DNR/DNI. UTI: Patient has chronic Howard. Catheter last changed on January. Urinalysis consistent with UTI. Zosyn and vancomycin will help with the same. Last urine culture from October consistent with Enterococcus faecalis, stenotrophomonas. Atrial fibrillation: Mild tachycardia at present. Continue with home dose of Coreg. Patient is not a good candidate for anticoagulation because of chronic anemia. Acute on chronic kidney disease: Could be secondary dehydration on top of poor oral intake. Patient has chronic Howard. CT abdomen pelvis to rule out any obstruction. Gentle hydration as above. Medical reconciliation done for nephrotoxic drugs. Hyperkalemia present: We will treat with albuterol. D50, insulin 10 units IV stat. Check repeat potassium at 9 PM. Discussed in detail with patient for possible need of dialysis if kidney functions continue to worsen or if hyperkalemia persists. Patient denies of dialysis and states he would not want any machines attached. Daughter was at bedside during the whole conversation. Hypertension: Goal blood pressures less than 140/90 mmHg. Keep mean arterial pressure was 65 mmHg. If required will start patient on Levophed. For now continue with home dose of Coreg. Type 2 diabetes mellitus: Check HbA1c. Start patient insulin sliding scale at low dose before meals and at bedtime. Anemia: Baseline hemoglobin around 9. Hemoglobin at baseline present. Most likely element of hemoconcentration as well. Check iron panel. If required will start patient on IV iron supplementation. DNR/DNI. Protonix 40 mg IV twice daily. Carb consistent cardiac diet. CODE STATUS: Discussed in detail regarding CODE STATUS with patient. Patient with hospice in the past but had rescinded recently. He continues to remain DNR/DNI. He states he would not want any kind of life support or machines attached to him. Even denies any dialysis if required. Attestations Medical Necessity Statement*: More than 2 midnights for sepsis, acute hypoxic respiratory failure, pneumonia, UTI Time Spent in Patient Care: Greater than 35 minutes (>than 50% of time spent in counselling and/or direct pt care on unit) . Coding Level of Care Code Acute Head Mixer for michael Selby Diagnoses Sepsis with acute hypoxic respiratory failure A41.9; R65.20; J96.01 UTI (urinary tract infection) T83.511A; N39.0 Encounter type: initial encounter Indwelling urinary catheter type: indwelling urethral catheter Urinary tract infection type: catheter-associated UTI End stage COPD J44.9 CHF (congestive heart failure) I50.9 Heart failure chronicity: unspecified Heart failure type: unspecified Acute renal failure superimposed on chronic kidney disease N17.9; N18.9 Acute renal failure type: unspecified Chronic kidney disease stage: unspecified stage Acute hyperkalemia E87.5 Dehydration E86.0 Atrial fibrillation and flutter I48.91; I48.92 Normocytic anemia D64.9 Diabetes mellitus type 2 in nonobese E11.9 Hypertension I10 DNR (do not resuscitate) Z66 Pulmonary fibrosis J84.10 Generalized weakness R53.1
--- NOTE | 2020-02-26 18:40 | PC.NURSE ---
REPORT GIVEN TO BEKA North RN IN ICU.
[2020-02-26 19:14] LABS: D Dimer 9.58 ug/mIFEU (0-0.59)
[2020-02-26 19:16] LABS: Iron 22 ug/dL (59-158)
[2020-02-26] MEDS: sodium polystyrene sulfonate 15 gm/60 mL Btl PO (19:24)
--- NOTE | 2020-02-26 19:30 | PC.NURSE ---
Admit Note Arrived to floor via gurney from ER. Pt drowsy but oriented to person, place, and time. Pt on droplet isolation pending COVID test. Arrived on 6L NC via mouth. Refuses to wear in nares. Pt refuses to wear hospital gown and remains in Tshirt. Lungs diminished throughout and coughing thick clear secretions. Suction set up at bedside. Rhythm atrial flutter. Has 3+ pitting edema to BLE. Dark Red blanching area to sacrum.
[2020-02-26] MEDS: pantoprazole 40 mg SDV IVP (19:46)
[2020-02-26] MEDS: sodium chloride 0.9% 1,000 ML 50 ML IV (19:46)
[2020-02-26 19:53] LABS: Percent Saturation 6.5 % (20-50); Total Iron Binding Capacity 338 mcg/dl; Unsaturated Iron Binding 316 ug/dL (112-347)
[2020-02-26] MEDS: heparin 5,000 unit/mL INJ 1 mL 5000 UNIT SUBCUT (19:53)
[2020-02-26] MEDS: insulin regular-human 10 UNIT in SYRINGE 1 EACH 999 UNIT IVP (19:53)
[2020-02-26] MEDS: dextrose 50% syringe 50 mL IVP (19:59)
--- NOTE | 2020-02-26 20:00 | PC.PHAR ---
Pharmacokinetic dosing service Date: 02/26/20 Time: 1999 Objective: Patient: Sarthak Ortiz Floor: ICU-5 Age: 69 yo Serum creatinine: 2.6 mg/dL Height: 68.0 Inches Weight (kg): 64.864 Diagnosis: Relevant medical/social history: Cultures and sensitivities: Other labs: Assessment: IBW (kg): 68.40 Dosing wt(kg): 64.864 Estimated Creatinine clearance (ml/min): 24.9 CRCL method: Cockcroft and Gault using ibw(default). Drug selected: Vancomycin Loading dose (mg): 0 Vd (liters): 58.4 (factor used: 0.9 L/kg) Ham (hr-1): 0.025 Half life (hrs): 27.73 Recommended dose: 1250 mg Interval: 48 hrs Infusion time (hrs): 1.5 Predicted peak (mcg/mL): 30.1 Predicted trough (mcg/mL): 9.41 Total body weight is being used for vancomycin dosing. Renal function is stable [ ] /unstable [ ] Recommendations: Give Vancomycin 1250 mg q 48 hrs with an expected Cpeak of 30.1 mcg/ml and an expected Ctrough of 9.41 mcg/ml Renal dosing of other antibiotics (review renal dosing of other medications and list guidelines here): Thank you for the consult, will continue to follow. Signature: Dora Sanchez [facility]
[2020-02-26 21:38] LABS: Glucose Point of Care 96 mg/dL (70-110)
--- NOTE | 2020-02-26 21:57 | ECG_ITS ---
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 Measurements Intervals [place] Rate: 103 P: [place]: -1 QRS: 64 QRSD: 104 T: 240 QT: 330 QTc: 434 Interpretive Statements ATRIAL FLUTTER/TACHYCARDIA WITH RAPID VENTRICULAR RESPONSE NONSPECIFIC T-WAVE ABNORMALITY WARNING: DATA QUALITY MAY AFFECT INTERPRETATION Compared to ECG 02/26/2020 17:32:12 T-wave abnormality now present Intraventricular conduction delay no longer present ST (T wave) deviation no longer present Electronically Signed On 02-27-2020 9:46:13 CDT by Marcella Shahid M.D. [id number]
[2020-02-26 22:08] LABS: Glucose Point of Care 137 mg/dL (70-110)
--- NOTE | 2020-02-26 22:30 | PC.NURSE ---
Pt refusing SCDs at this time, scds taken off.
--- NOTE | 2020-02-26 22:45 | PC.NURSE ---
SPO2 Sat 85% with goodwave form on 6L via NC in mouth. RT notified and when speaking with patient he refuses to wear BIPAP. Pt was willing to try oxymask, but refused it after 2 minutes. Clarification of code status and is DNR/DNI. Patient refuses to wear NC in nares. Encouraged coughing and deep breathing, rattling non-productive cough at this time. 6L NC placed back into mouth, O2 sat 95%
[2020-02-26 22:52] LABS: Potassium 5.2 mmol/L (3.5-5.1)
[2020-02-26 22:54] LABS: Lactic Sepsis W/Reflex 1.6 mmol/L (0.5-2.2)
[2020-02-26 22:56] LABS: Troponin 5 6HR 54.81 ng/L (0-15)
[2020-02-26 23:02] LABS: Troponin 5 6HR Delta -5.19 ng/L (0-12)
[2020-02-27] VITALS (101 sets, daily range): BP systolic 66–146; BP diastolic 44–96; PULSE 100–126; RESP 0–31; TEMP 36.2–36.8; O2SAT 59–100
[2020-02-27] MEDS: piperacillin-tazobactam 3.375 GM in sodium chloride 0.9% (plus) 50 ML IV ×4 (01:05→23:57)
--- NOTE | 2020-02-27 01:38 | PC.NURSE ---
Patient refuses to reposition.
[2020-02-27 04:35] LABS: Basophils % 0.2 %; Eosinophils % 0.2 %; Hematocrit 30.8 % (42.0-52.0); Hemoglobin 8.4 g/dL (11.7-16.6); Lymphocytes # 0.4 10^3/uL (0.8-4.8); Lymphocytes % 4.7 %; Mean Corpuscular HGB Conc 27.3 g/dL (30.0-36.0); Mean Corpuscular Hemoglobin 25.4 pg (28.0-34.0); Mean Corpuscular Volume 93.1 fL (80-94); Mean Platelet Volume 9.7 fL (7.4-10.4); Monocytes # 1.3 10^3/uL (0.2-0.9); Monocytes % 15.9 %; Neutrophils # 6.28 10^3/uL (1.8-7.7); Neutrophils % 78.3 %; Nucleated Red Blood Cells # 0.1 /100WBC; Nucleated Red Blood Cells % 0.9 %; Platelet Count 287 10^3/cmm (130-400); Red Blood Count 3.31 10^6/uL (4.1-5.3); Red Cell Distribution Width 16.4 % (12.1-15.1)
[2020-02-27 04:57] LABS: Alanine Aminotransferase 104 U/L (0-41); Albumin Level 3.6 g/dL (3.5-5.2); Alkaline Phosphatase 85 IU/L (40-130); Anion Gap 16.2 (5-19); Aspartate Amino Transferase 117 U/L (0-40); Blood Urea Nitrogen 78 mg/dL (8-23); Calcium 7.6 mg/dL (8.5-10.5); Carbon Dioxide 33 mmol/L (22-29); Chloride 91 mmol/L (98-107); Creatinine Clr Calc Pharmacy 26.7582; Globulin 4.2 g/dL (1.3-4.6); Glomerular Filtration Rate 23.6 mL/min (90-130); Glucose 158 mg/dL (65-115); Osmolality Calculated 283 mOsm/kg (285-295); Potassium 5.2 mmol/L (3.5-5.1); Sodium 135 mmol/L (136-145); Total Bilirubin 0.4 mg/dL (0.15-1.2); Total Protein 7.8 g/dL (6.6-8.7)
[2020-02-27 05:02] LABS: Chol HDL Ratio 3.59 mg/dL (1.0-5.00); Cholesterol 194 mg/dL (0-200); HDL Cholesterol 54 mg/dL (60-100); LDL Cholesterol Calculated 110 mg/dL (50-129); Triglycerides 151 mg/dL (0-150); VLDL Cholestrol Calculation 30 mg/dL (0-30)
[2020-02-27 05:06] LABS: Estmated Average Glucose 120; Hemoglobin A1C 5.8 % (4.0-6.0)
--- NOTE | 2020-02-27 07:33 | PC.OT ---
OT note: Pt pending COVID testing, OT eval on hold. Will see pt as able after neg results.
[2020-02-27 08:24] LABS: Glucose Point of Care 136 mg/dL (70-110)
[2020-02-27] MEDS: gabapentin 300 mg Capsule PO ×2 (08:33→18:00)
[2020-02-27] MEDS: pantoprazole 40 mg SDV IVP ×2 (08:34→19:58)
[2020-02-27] MEDS: heparin 5,000 unit/mL INJ 1 mL 5000 UNIT SUBCUT ×2 (08:38→19:58)
--- NOTE | 2020-02-27 09:52 | PC.NURSE ---
Addendum entered by Tristan Stewart RN 02/27/20 09:56: Dr Monteiro notified. Original Note: Held morning dose of carvedilol. Contraindicated per vitals. Systolic Blood pressure has been consistently in the mid 80s
--- NOTE | 2020-02-27 10:11 | PC.NURSE ---
Upon initial assessment and relayed during shift change, pt has blanchable bruising/redness to the sacral area. I attempted to reposition pt and place pillows, but patient declines. I explained the risks of prolonged pressure and pt still refused. Pt was agreeable to lowering the head of bed.
--- NOTE | 2020-02-27 10:39 | PC.NURSE ---
Attempted to get patient to wear the SCDs, but he refused. I explained the purpose and he still refused. Patient is receiving heparin for VTE prophylaxis.
--- NOTE | 2020-02-27 11:18 | USCV_ITS ---
Sarthak Ortiz Age: 69 Gender: M : 1950 Exam Date: 02/27/2020 15:12 Ordering Phys: Gordy Monteiro MD Technologist: Ezekiel Bueno Exam Location: [facility] [place]_ Indication: BILAT EDEMA HISTORY: Lower extremity swelling. Lower extremity edema. PROCEDURES: The venous duplex Doppler examination of both lower extremities was performed in the standard fashion. The following venous structures were evaluated: common femoral vein, profunda vein, proximal portion of the greater saphenous vein, superficial femoral vein, and the popliteal vein. Bilaterally, the common femoral, superficial femoral, profunda femoral, popliteal, posterior tibial, greater saphenous veins, and the peroneal trunk were identified and interrogated in the standard fashion. These veins were found to be easily compressible with spontaneous blood flow. No evidence of insufficiency or thrombus noted. FINDINGS: Normal 2-D Doppler and augmentation and compressibility throughout the lower extremity venous structures. Additional imaging through the proximal calf veins also reveals no thrombus. Limited evaluation of the greater saphenous vein is patent with no thrombus.. Non pulsatile flow pattern. Echolucent areas in the subcutaneous tissue of the lower leg CONCLUSIONS No evidence of DVT in the above-mentioned identifiable veins. Features of edema/fluid retention Dr Marcella Shahid MD [facility] (Electronically Signed) Final Date: 27 February 2020 20:31 S
[2020-02-27 11:50] LABS: ABG PH Result 7.32 (7.35-7.45); Alveolar-Arterial Oxygen Gradi 11.9 mmHg (5-10); Blood Gas Allen Test Pos; Blood Gas Operator Identificat GD; Blood Gas Sample Site Radial, left; Blood Gas Sample Type Arterial; HGB O2 Sat 89.3 % (95-100); Methemoglobin 1.1 % (0.4-1.5); Oxygen Device NC; Oxygen Saturation ABG 91.3; PO2 ABG 62.2 mmHg (80.0-100.0); Potassium Level - ABG 4.8 mmol/L (3.5-5.0); Total Hemoglobin 8.2 g/dL (14-18)
[2020-02-27 11:51] LABS: ABG PCO2 61.7 mmHg (35-45)
[2020-02-27 12:09] LABS: Magnesium 2.1 mg/dL (1.7-2.3); Phosphorus 5.9 mg/dL (2.5-4.5)
[2020-02-27] MEDS: sodium chloride 0.9% 1,000 ML 999 ML IV ×2 (12:16→14:14)
[2020-02-27 12:20] LABS: Glucose Point of Care 168 mg/dL (70-110)
[2020-02-27] MEDS: dextrose 50% syringe 50 mL IVP (12:42)
[2020-02-27] MEDS: insulin regular-human 10 UNIT in SYRINGE 1 EACH 100 UNIT IVP (12:50)
[2020-02-27] MEDS: iron sucrose 200 MG in sodium chloride 0.9% (100 ml) 100 ML 220 MG IV (12:58)
[2020-02-27] MEDS: sodium chloride 0.9% 1,000 ML 50 ML IV ×2 (13:20→23:57)
[2020-02-27 13:51] LABS: Calcium 7.1 mg/dL (8.5-10.5); Parathyroid Hormone 119.6 pg/mL (15-65)
--- NOTE | 2020-02-27 14:03 | PC.NURSE ---
Addendum entered by Tristan Stewart RN 02/27/20 16:47: Correction - alerted Dr Monteiro, allan Jones Original Note: Patient stated they think they are having a stroke because their hands are shakier than normal when eating, and he knows what they feel like because he has had one before. Did the NIH scale and he scored a 7. Alerted Dr Jones.
--- NOTE | 2020-02-27 14:52 | PC.NURSE ---
Patient Agreed to repositioning. Turned to Left side and placed pillows to relieve sacral pressure.
--- NOTE | 2020-02-27 16:15 | PM.PN ---
Subjective Subjective: Interval history: No acute events overnight. Overnight patient's blood pressure has remained borderline but mean arterial pressures have remained over 65 mmHg. Urine output has been appropriate. He saturating on examination 100% on 5 L nasal cannula. Patient has remained afebrile. COVID-19 is still pending. Labs and result of CT scan appreciated. Cheetah exam was done to look for fluid status which showed patient is fluid responsive. Result was 22.6%. Will repeat again in afternoon after giving 2 L of IV fluid bolus. Vitals/I&O/Wt Last Vital Signs Temp 98.1 F 02/27/20 14:00 Pulse 108 H 02/27/20 14:00 Resp 21 H 02/27/20 14:00 BP 89/59 02/27/20 14:00 Pulse Ox 98 02/27/20 14:00 02/27/20 02/27/20 02/27/20 06:59 14:59 22:59 Intake Total 470 / 570 1528.333 / 1528.333 Output Total 1000 / 1000 200 / 200 Balance -530 / -430 1528.333 / 1528.333 -200 / 1328.333 Weight last 48 hrs Weight 78.018 kg Weight 77.111 kg Weight 64.864 kg Physical Exam Narrative: EXAM NARRATIVE: General: No acute distress, AO x3, weak, dehydrated HEENT: PERRLA, pupils bilaterally equal and reactive Chest: Normal vesicular breath sounds, no added sounds, equal good air entry bilaterally CVS: S1-S2 tachycardia, irregularly irregular, no murmurs, no gallops, no rubs Abdomen: Soft, nontender, no organomegaly, bowel sounds present Neuro: No focal deficits, no facial deformity, AO x3, power 5/5 in all limbs Data : 02/27/20 04:10 02/27/20 04:10 Micro: Microbiology 02/26/20 16:44 Legionella Urinary Antigen - Final Urine Catheterized 02/26/20 19:59 MRSA Culture - Final Nose 02/26/20 16:15 Blood Culture - Preliminary Blood SPECIMEN COLLECTED 02/26/20 16:10 Blood Culture - Preliminary Blood SPECIMEN COLLECTED A&P Assessment and plan (1) Sepsis with acute hypoxic respiratory failure: Status: Acute (2) Empyema: Status: Acute (3) UTI (urinary tract infection): Status: Acute Qualifiers: Encounter type: initial encounter Indwelling urinary catheter type: indwelling urethral catheter Urinary tract infection type: catheter-associated UTI Qualified Code(s): T83.511A - Infection and inflammatory reaction due to indwelling urethral catheter, initial encounter; N39.0 - Urinary tract infection, site not specified (4) End stage COPD: Status: Acute (5) CHF (congestive heart failure): Status: Acute Qualifiers: Heart failure chronicity: unspecified Heart failure type: unspecified Qualified Code(s): I50.9 - Heart failure, unspecified (6) Acute renal failure superimposed on chronic kidney disease: Status: Acute Qualifiers: Acute renal failure type: unspecified Chronic kidney disease stage: unspecified stage Qualified Code(s): N17.9 - Acute kidney failure, unspecified; N18.9 - Chronic kidney disease, unspecified (7) Acute hyperkalemia: Status: Acute (8) Dehydration: Status: Acute (9) Atrial fibrillation and flutter: Status: Acute (10) Normocytic anemia: Status: Acute (11) Diabetes mellitus type 2 in nonobese: Status: Acute (12) Hypertension: Status: Acute (13) DNR (do not resuscitate): Status: Acute (14) Pulmonary fibrosis: Status: Acute (15) Generalized weakness: Status: Acute Additional A&P Information Sepsis: Criteria met through tachycardia, hypotension, tachypnea. Acute hypoxic respiratory failure: Most likely secondary to right-sided empyema on top of end-stage COPD because of severe pulmonary fibrosis. MRSA positive. For now we will continue with vancomycin and Zosyn both renally dosed. COVID-19 results awaited. Continue with droplet and contact precautions. We will consult Dr. Jones for thoracocentesis versus pigtail placement for empyema. Will de-escalate antibiotics as per the culture results from empyema. Oxygen supplementation keeping saturation over 90%. Advair, Spiriva. For now we will hold off on steroids but if patient worsens can start him on methylprednisolone. Repeat ABG. Most likely patient had venous blood gas done yesterday which showed a pH of 7.13. Saturation well-maintained for now. History of diastolic heart failure: Last echocardiogram done in October shows an EF of 65% with diastolic heart failure with RVSP of 10.4 mmHg. Patient looks on the yolk spray drier side right now. Cheetah exam appreciated. Patient is fluid responsive. Will give 2 L bolus and increase the fluid 200 cc/h. We will strictly monitor fluid status and for fluid overload. Patient is DNR/DNI. UTI: Patient has chronic Howard. Catheter last changed on January. Urinalysis consistent with UTI. Zosyn and vancomycin will help with the same. Last urine culture from October consistent with Enterococcus faecalis, stenotrophomonas. Atrial fibrillation: Mild tachycardia at present. Hold off Coreg because of borderline blood pressures. Patient is not a good candidate for anticoagulation because of chronic anemia. Acute on chronic kidney disease: Could be secondary dehydration on top of poor oral intake along with metolazone, spironolactone, hydrochlorothiazide, Bactrim use. Patient has chronic Howard. Will give patient 2 L IV bolus and increase the fluid to 100 cc/h. We will continue to monitor for fluid overload. Medical reconciliation done for nephrotoxic drugs. Hyperkalemia present: We will treat with albuterol. Repeat D50, insulin 10 units IV stat. Check repeat potassium at 9 PM. Discussed in detail with patient for possible need of dialysis if kidney functions continue to worsen or if hyperkalemia persists. Patient denies of dialysis and states he would not want any machines attached. Daughter was at bedside during the whole conversation. Hypertension: Goal blood pressures less than 140/90 mmHg. Keep mean arterial pressure was 65 mmHg. If required will start patient on Levophed. Hold off Coreg for borderline blood pressures. Type 2 diabetes mellitus: A1c 5.8. We will stop doing fingersticks. Check blood sugars daily with BMP. Anemia: Baseline hemoglobin around 9. Hemoglobin at baseline present. Most likely element of hemoconcentration as well. Check iron panel. If required will start patient on IV iron supplementation. DNR/DNI. Protonix 40 mg IV twice daily. Carb consistent cardiac diet. CODE STATUS: Discussed in detail regarding CODE STATUS with patient. Patient with hospice in the past but had rescinded recently. He continues to remain DNR/DNI. He states he would not want any kind of life support or machines attached to him. Even denies any dialysis if required. Attestations Medical Necessity Statement*: Needs further hospitalization for sepsis, SHRADDHA, empyema, UTI Critical Care Time: Cheetah exam, fluid status, treatment of hyperkalemia, severe sepsis Critical Care Time (min): 80 Coding Level of Care Code Acute Treasury Accountant for g Fwd Diagnoses Sepsis with acute hypoxic respiratory failure A41.9; R65.20; J96.01 Empyema J86.9 UTI (urinary tract infection) T83.511A; N39.0 Encounter type: initial encounter Indwelling urinary catheter type: indwelling urethral catheter Urinary tract infection type: catheter-associated UTI End stage COPD J44.9 CHF (congestive heart failure) I50.9 Heart failure chronicity: unspecified Heart failure type: unspecified Acute renal failure superimposed on chronic kidney disease N17.9; N18.9 Acute renal failure type: unspecified Chronic kidney disease stage: unspecified stage Acute hyperkalemia E87.5 Dehydration E86.0 Atrial fibrillation and flutter I48.91; I48.92 Normocytic anemia D64.9 Diabetes mellitus type 2 in nonobese E11.9 Hypertension I10 DNR (do not resuscitate) Z66 Pulmonary fibrosis J84.10 Generalized weakness R53.1
--- NOTE | 2020-02-27 19:05 | PC.NURSE ---
Iv in the patients wrist became infiltrated and had to be removed. The IV in the patients Right forearm was leaking and fluids could no longer be administered. Removed both. Myself and another nurse both attempted IV insertion and were unsuccessful.
[2020-02-27 19:25] LABS: Potassium, Radom Urine 26 mmol/L
[2020-02-27 19:35] LABS: Urine Random Chloride 10 mmol/L; Urine Random Sodium 10 mmol/L
[2020-02-28] VITALS (108 sets, daily range): BP systolic 87–129; BP diastolic 57–90; PULSE 98–128; RESP 0–39; TEMP 36.3–37.4; O2SAT 73–100
--- NOTE | 2020-02-28 02:20 | PC.NURSE ---
[address] Robbins decreased oxygen sats low 70's. Increased O2 to NRB will monitor
[2020-02-28 04:07] LABS: Basophils % 0.4 %; Eosinophils % 0.3 %; Hematocrit 29.4 % (42.0-52.0); Hemoglobin 8.2 g/dL (11.7-16.6); Lymphocytes # 0.4 10^3/uL (0.8-4.8); Lymphocytes % 3.4 %; Mean Corpuscular HGB Conc 27.9 g/dL (30.0-36.0); Mean Corpuscular Hemoglobin 25.2 pg (28.0-34.0); Mean Corpuscular Volume 90.5 fL (80-94); Mean Platelet Volume 9.5 fL (7.4-10.4); Monocytes % 17.5 %; Neutrophils # 8.77 10^3/uL (1.8-7.7); Neutrophils % 77.3 %; Nucleated Red Blood Cells # 0.2 /100WBC; Nucleated Red Blood Cells % 1.7 %; Platelet Count 287 10^3/cmm (130-400); Red Blood Count 3.25 10^6/uL (4.1-5.3); Red Cell Distribution Width 16.7 % (12.1-15.1); White Blood Count 11.3 10^3/uL (4.0-10.0)
[2020-02-28 04:37] LABS: Alanine Aminotransferase 85 U/L (0-41); Albumin Level 3.5 g/dL (3.5-5.2); Alkaline Phosphatase 73 IU/L (40-130); Anion Gap 14.6 (5-19); Aspartate Amino Transferase 83 U/L (0-40); Blood Urea Nitrogen 70 mg/dL (8-23); Calcium 7.1 mg/dL (8.5-10.5); Carbon Dioxide 28 mmol/L (22-29); Chloride 93 mmol/L (98-107); Globulin 3.7 g/dL (1.3-4.6); Glomerular Filtration Rate 28.4 mL/min (90-130); Glucose 119 mg/dL (65-115); Osmolality Calculated 272 mOsm/kg (285-295); Potassium 4.6 mmol/L (3.5-5.1); Sodium 131 mmol/L (136-145); Total Bilirubin 0.4 mg/dL (0.15-1.2); Total Protein 7.2 g/dL (6.6-8.7)
[2020-02-28 05:08] LABS: Vancomycin Random 8.1 ug/mL (20.0-40.0)
[2020-02-28] MEDS: FUROsemide 10 mg/mL SDV 4mL 40 MG IVP ×2 (05:52→11:11)
--- NOTE | 2020-02-28 06:41 | PC.NURSE ---
Pt refusing BIPAP informed of low oxygen and need questions answered Pt REFUSEd
[2020-02-28] MEDS: pantoprazole 40 mg SDV IVP ×2 (07:50→19:19)
[2020-02-28] MEDS: heparin 5,000 unit/mL INJ 1 mL 5000 UNIT SUBCUT (07:51)
[2020-02-28] MEDS: morphine 4 mg/mL SDV 1 mL 1 MG IVP (07:51)
[2020-02-28] MEDS: piperacillin-tazobactam 3.375 GM in sodium chloride 0.9% (plus) 50 ML IV ×2 (08:31→17:12)
[2020-02-28 10:45] LABS: ABG PH Result 7.19 (7.35-7.45); Alveolar-Arterial Oxygen Gradi 46.9 mmHg (5-10); Arterial Blood Gas Hematocrit 28.9 % (42-52); Base Excess ABG 1.4 mmol/L (-2.0-2.0); Blood Gas Allen Test Pos; Blood Gas Operator Identificat GD; Blood Gas Sample Site Radial, left; Blood Gas Sample Type Arterial; Carboxyhemoglobin 0.9 %THgb (0.4-20.1); HGB O2 Sat 95.9 % (95-100); Ionized Calcium Level - ABG 1.1 mmol/L (1.1-1.4); Methemoglobin 1.4 % (0.4-1.5); Oxygen Device BIPAP; Oxygen Saturation ABG 98.1; Potassium Level - ABG 4.6 mmol/L (3.5-5.0); Total Hemoglobin 9.4 g/dL (14-18)
--- NOTE | 2020-02-28 10:56 | P.PN_ITS ---
Subjective Subjective: Interval history: Overnight patient became very tachypneic for which he was started on BiPAP. On examination patient is on BiPAP is a little lethargic but following commands. COVID-19 test came back negative. On examination patient's heart rate is in 125 bpm, normal sinus, regular, blood pressure 120/60 mmHg, saturation 94%. ABG was done during my exam which was concerning for hypercapnia and hyperoxia so FiO2 was decreased to 60% and setting was changed to 16/8. Vitals/I&O/Wt Last Vital Signs Temp 97.4 F L 02/28/20 08:44 Pulse 125 H 02/28/20 10:00 Resp 28 H 02/28/20 10:00 BP 119/83 02/28/20 10:00 Pulse Ox 95 02/28/20 10:00 02/27/20 02/28/20 02/28/20 22:59 06:59 14:59 Intake Total 2220 / 3748.333 580.833 / 4329.166 Output Total 500 / 500 400 / 900 475 / 475 Balance 1720 / 3248.333 180.833 / 3429.166 -475 / -475 Weight last 48 hrs Weight 78.018 kg Weight 77.111 kg Weight 64.864 kg Physical Exam Narrative: EXAM NARRATIVE: General: No acute distress, AO x3, weak, lethargic HEENT: PERRLA, pupils bilaterally equal and reactive Chest: Normal vesicular breath sounds, no added sounds, equal good air entry bilaterally CVS: S1-S2 tachycardia, irregularly irregular, no murmurs, no gallops, no rubs Abdomen: Soft, nontender, no organomegaly, bowel sounds present Neuro: No focal deficits, no facial deformity, AO x3, power 5/5 in all limbs Data : 02/28/20 03:35 02/28/20 03:35 Micro: Microbiology 02/26/20 16:44 Urine Culture - Preliminary Urine,Clean Catch Enterococcus species 02/26/20 16:15 Blood Culture - Preliminary Blood NEGATIVE TO DATE 02/26/20 16:10 Blood Culture - Preliminary Blood NEGATIVE TO DATE 02/26/20 16:44 Legionella Urinary Antigen - Final Urine Catheterized 02/26/20 19:59 MRSA Culture - Final Nose A&P Assessment and plan (1) Sepsis with acute hypoxic respiratory failure: Status: Acute (2) Empyema: Status: Acute (3) UTI (urinary tract infection): Status: Acute Qualifiers: Encounter type: initial encounter Indwelling urinary catheter type: indwelling urethral catheter Urinary tract infection type: catheter-associated UTI Qualified Code(s): T83.511A - Infection and inflammatory reaction due to indwelling urethral catheter, initial encounter; N39.0 - Urinary tract infection, site not specified (4) End stage COPD: Status: Acute (5) CHF (congestive heart failure): Status: Acute Qualifiers: Heart failure chronicity: unspecified Heart failure type: unspecified Qualified Code(s): I50.9 - Heart failure, unspecified (6) Acute renal failure superimposed on chronic kidney disease: Status: Acute Qualifiers: Acute renal failure type: unspecified Chronic kidney disease stage: unspecified stage Qualified Code(s): N17.9 - Acute kidney failure, unspecified; N18.9 - Chronic kidney disease, unspecified (7) Acute hyperkalemia: Status: Acute (8) Dehydration: Status: Acute (9) Atrial fibrillation and flutter: Status: Acute (10) Normocytic anemia: Status: Acute (11) Diabetes mellitus type 2 in nonobese: Status: Acute (12) Hypertension: Status: Acute (13) DNR (do not resuscitate): Status: Acute (14) Pulmonary fibrosis: Status: Acute (15) Generalized weakness: Status: Acute Additional A&P Information Sepsis: Criteria met through tachycardia, hypotension, tachypnea. Acute hypoxic respiratory failure: Most likely secondary to right-sided empyema on top of end-stage COPD because of severe pulmonary fibrosis. It seems because of patient's poor mentation that he continues to aspirate both his feeds and expectoration causing him to have recurrent right lower lobe pneumonia which possibly has some postobstructive changes as well which is led him to have empyema. MRSA positive. For now we will continue with vancomycin and Zosyn both renally dosed. Creatinine level on the lower side so will increase the frequency from every 48 to every 36 hours. Will add azithromycin for atypical coverage. COVID-19 is negative remove droplet precautions. Continue with contact precautions for MRSA. Patient is to get chest tube placement for empyema today in the afternoon with Dr. Jones. Oxygen supplementation keeping saturation over 90%. DuoNebs every 4 hours, budesonide twice daily, albuterol as needed. For now we will hold off on steroids but if patient worsens can start him on methylprednisolone. Hypercapnia on BiPAP. Has changed to settings as above. Will request for an ABG in 1 hour again and change settings accordingly. Patient is not a good candidate for BiPAP ventilation because of poor mentation, thick secretion which puts him at a high risk of aspiration. History of diastolic heart failure: Last echocardiogram done in October shows an EF of 65% with diastolic heart failure with RVSP of 10.4 mmHg. Euvolemic to mild hypervolemia right now. We will stop IV fluids. Patient's blood pressures are better now. We will start patient on IV Lasix 40 mg daily. Daily weights. Monitor urine output every shift. Patient is DNR/DNI. UTI: Patient has chronic Howard. Urine culture growing enterococcus for now. Catheter last changed on January. Urinalysis consistent with UTI. Zosyn and vancomycin will help with the same. Last urine culture from October consistent with Enterococcus faecalis, stenotrophomonas. Atrial fibrillation: Mild tachycardia at present. Hold off Coreg because of borderline blood pressures. Patient is not a good candidate for anticoagulation because of chronic anemia. Given persistent tachycardia will load patient with half dose of digoxin as his creatinine is a little better and hyperkalemia has resolved. We will give him to 50 mcg stat followed by 125 mg in next 6 hours. Acute on chronic kidney disease: Could be secondary dehydration on top of poor oral intake along with metolazone, spironolactone, hydrochlorothiazide, Bactrim use. Patient has chronic Howard. Continue to monitor BMP daily. Medical reconciliation done for nephrotoxic drugs. Hyperkalemia: Resolved Discussed in detail with patient for possible need of dialysis if kidney functions continue to worsen or if hyperkalemia persists. Patient denies of dialysis and states he would not want any machines attached. Daughter was at bedside during the whole conversation. Hypertension: Goal blood pressures less than 140/90 mmHg. Keep mean arterial pressure was 65 mmHg. If required will start patient on Levophed. Hold off Coreg for borderline blood pressures. Type 2 diabetes mellitus: A1c 5.8. We will stop doing fingersticks. Check blood sugars daily with BMP. Anemia: Baseline hemoglobin around 9. Hemoglobin at baseline present. Most likely element of hemoconcentration as well. Start patient on IV iron 200 mg for 5 days. Day 2 today. DNR/DNI. Protonix 40 mg IV twice daily. Carb consistent cardiac diet. CODE STATUS: Discussed in detail regarding CODE STATUS with patient. Patient with hospice in the past but had rescinded recently. He continues to remain DNR/DNI. He states he would not want any kind of life support or machines attached to him. Even denies any dialysis if required. Patient's medical condition has been updated to his daughter. Patient remains with severely guarded prognosis. All the questions were answered. Patient's daughter is okay with chest tube drain. Attestations Medical Necessity Statement*: Sepsis, hypoxic and hypercapnic respiratory failure, empyema Time Spent in Patient Care: Greater than 35 minutes (>than 50% of time spent in counselling and/or direct pt care on unit) . Coding Level of Care Code Acute Regulatory Services Consultant for [facility] Fwd Diagnoses Sepsis with acute hypoxic respiratory failure A41.9; R65.20; J96.01 Empyema J86.9 UTI (urinary tract infection) T83.511A; N39.0 Encounter type: initial encounter Indwelling urinary catheter type: indwelling urethral catheter Urinary tract infection type: catheter-associated UTI End stage COPD J44.9 CHF (congestive heart failure) I50.9 Heart failure chronicity: unspecified Heart failure type: unspecified Acute renal failure superimposed on chronic kidney disease N17.9; N18.9 Acute renal failure type: unspecified Chronic kidney disease stage: unspecified stage Acute hyperkalemia E87.5 Dehydration E86.0 Atrial fibrillation and flutter I48.91; I48.92 Normocytic anemia D64.9 Diabetes mellitus type 2 in nonobese E11.9 Hypertension I10 DNR (do not resuscitate) Z66 Pulmonary fibrosis J84.10 Generalized weakness R53.1
[2020-02-28 11:06] LABS: Coronavirus Lab Test PTC NOT DETECTED
[2020-02-28] MEDS: digoxin 250 mcg/ml INJ 2 mL IVP (11:10)
[2020-02-28] MEDS: iron sucrose 200 MG in sodium chloride 0.9% (100 ml) 100 ML 220 MG IV (11:11)
[2020-02-28 11:25] LABS: Procalcitonin 0.31 ng/mL (0-0.5)
[2020-02-28] MEDS: azithromycin 500 MG in sodium chloride 0.9% 250 ML 250 MG IV (11:43)
--- NOTE | 2020-02-28 12:45 | PC.NURSE ---
PLAN OF CARE During rounding with Dr. Monteiro, discussed need for chest percussion and breathing treatments to expectorate secretions. New orders were put in for digoxin, vancomycin, azithromycin, and lasix. Patient has continued to run tachycardic today in the 120s. Patient agreed to BIPAP and has been on since 0855 this AM. Patient lethargic this AM and gasping for air. Morphine given at 0751 and patient has not appeared to be gasping for air as much since dose of morphine and BIPAP initiation. Dr. Monteiro discussed chest tube insertion and is tentatively to be done today by Dr. Jones. Patient's daughter, Iveth, called to inform her that patient COVID test came back negative.
[2020-02-28] MEDS: ipratropium-albuterol 3 mL Neb INHALATION ×2 (15:12→21:56)
[2020-02-28 16:00] LABS: ABG PH Result 7.29 (7.35-7.45); Alveolar-Arterial Oxygen Gradi 19.4 mmHg (5-10); Arterial Blood Gas Hematocrit 26.7 % (42-52); Base Excess ABG 3.2 mmol/L (-2.0-2.0); Blood Gas Allen Test Pos; Blood Gas Operator Identificat GD; Blood Gas Sample Site Radial, left; Blood Gas Sample Type Arterial; Carboxyhemoglobin 1.1 %THgb (0.4-20.1); HCO3 ABG 30.7 mmol/L (22-26); HGB O2 Sat 88.6 % (95-100); Methemoglobin 1.3 % (0.4-1.5); Oxygen Device BIPAP; Oxygen Saturation ABG 90.8; PO2 ABG 59.9 mmHg (80.0-100.0); Potassium Level - ABG 4.3 mmol/L (3.5-5.0); Total Hemoglobin 8.7 g/dL (14-18)
[2020-02-28 16:01] LABS: ABG PCO2 63.9 mmHg (35-45)
[2020-02-28] MEDS: digoxin 250 mcg/ml INJ 2 mL 125 MCG IVP (17:12)
--- NOTE | 2020-02-28 17:58 | PC.OT ---
OT note: When attempted this am pt's COVID test was still pending.
[2020-02-28] MEDS: budesonide 0.5 mg/2 mL Neb INHALATION (21:58)
[2020-02-29] VITALS (57 sets, daily range): BP systolic 91–119; BP diastolic 50–80; PULSE 92–118; RESP 2–34; TEMP 36.7–37.2; O2SAT 77–100
[2020-02-29] MEDS: piperacillin-tazobactam 3.375 GM in sodium chloride 0.9% (plus) 50 ML IV ×3 (00:27→16:32)
[2020-02-29] MEDS: ipratropium-albuterol 3 mL Neb INHALATION ×5 (03:02→23:59)
[2020-02-29 05:02] LABS: Basophils % 0.4 %; Eosinophils % 0.2 %; Hematocrit 28.8 % (42.0-52.0); Hemoglobin 7.8 g/dL (11.7-16.6); Lymphocytes # 0.5 10^3/uL (0.8-4.8); Lymphocytes % 5.5 %; Mean Corpuscular HGB Conc 27.1 g/dL (30.0-36.0); Mean Corpuscular Hemoglobin 25.3 pg (28.0-34.0); Mean Corpuscular Volume 93.5 fL (80-94); Monocytes # 1.6 10^3/uL (0.2-0.9); Monocytes % 17.1 %; Neutrophils % 76.1 %; Nucleated Red Blood Cells # 0.1 /100WBC; Nucleated Red Blood Cells % 0.5 %; Platelet Count 226 10^3/cmm (130-400); Red Blood Count 3.08 10^6/uL (4.1-5.3); Red Cell Distribution Width 17.5 % (12.1-15.1); White Blood Count 9.3 10^3/uL (4.0-10.0)
[2020-02-29 05:42] LABS: Alanine Aminotransferase 66 U/L (0-41); Albumin Level 3.2 g/dL (3.5-5.2); Alkaline Phosphatase 67 IU/L (40-130); Blood Urea Nitrogen 63 mg/dL (8-23); Calcium 7.9 mg/dL (8.5-10.5); Carbon Dioxide 29 mmol/L (22-29); Chloride 94 mmol/L (98-107); Globulin 3.8 g/dL (1.3-4.6); Glomerular Filtration Rate 35.4 mL/min (90-130); Glucose 97 mg/dL (65-115); Osmolality Calculated 279 mOsm/kg (285-295); Sodium 135 mmol/L (136-145); Total Bilirubin 0.4 mg/dL (0.15-1.2)
[2020-02-29 05:52] LABS: Anion Gap 15.9 (5-19); Aspartate Amino Transferase 50 U/L (0-40); Potassium 3.9 mmol/L (3.5-5.1)
[2020-02-29] MEDS: pantoprazole 40 mg SDV IVP ×2 (07:44→20:16)
[2020-02-29] MEDS: budesonide 0.5 mg/2 mL Neb INHALATION ×2 (08:03→19:39)
--- NOTE | 2020-02-29 08:09 | PC.CHAP ---
Pastoral Care Encounter/Spiritual Assessment Type of Contact [] Declined hand fabric cutter visit [] Patient/Family/Request visit [] Outpatient visit [] Follow-up visit [] Physician referral [] Code/Alert [x] Routine visit [] Staff referral [] Actively dying [] Patient sleeping [] Family support [] [] Out of room [] Palliative care [] [] Receiving care in room [] Pre-surgical visit [] Trauma [] Long length of stay [] ICU visit [x] Other: patient on respirator Relational/Emotional Strength [] Patient feels connected with others/family/visitors/staff [] Distress [] Loneliness/isolation [] Abandonment Spirituality of Patient [] Person of Michelle [] Attends Druze of their Michelle [] Believes in Prayer [] Reads Bible or Christianity materials [] There are Spiritual issues to be addressed Social Science Professor Interventions [x] Prayer [] Active listening [] Non-anxious presence [] Spiritual/emotional support [] Crisis/trauma care [] Spiritual counseling [] Bereavement support [] Provided bereavement packet [] Provided Bible/devotional materials [] Provided toy/stuffed animal, coloring book to patient or family member [] Provided Communion [] Anointing/[place] [] Salvation [x] Completed spiritual assessment [] Other: Impact on Illness or Injury [] Angry [] Fearful [] Anxious [] Often cries [] Exhaustion [] Unable to work [] Unable to attend tenriism [] Unable to walk/stand [] Unable to read [] Unable to drive [] Unable to eat/drink [] Unable to sleep [] Unable to be with family [] Patient intubated [] Other: Summary Time spent with patient
--- NOTE | 2020-02-29 08:11 | PC.OT ---
OT Note: RN requested hold on therapy at this time.
[2020-02-29] MEDS: morphine 4 mg/mL SDV 1 mL 1 MG IVP (09:32)
[2020-02-29] MEDS: azithromycin 500 MG in sodium chloride 0.9% 250 ML 250 MG IV (09:32)
[2020-02-29] MEDS: iron sucrose 200 MG in sodium chloride 0.9% (100 ml) 100 ML 220 MG IV (10:03)
--- NOTE | 2020-02-29 11:30 | P.PN_ITS ---
Subjective Subjective: Interval history: No acute events overnight. Patient has remained on BiPAP. Today morning on examination patient is on BiPAP but is a lot more awake. He is AO x3 to self, place and the reason for him being in the hospital. He remembers me from decompensation he had with me on the day of admission. He denies of having any nausea or vomiting. He still seems very lethargic and tired. In last 24 hours had a family meeting with patient's daughter Ms. Lazaro. At that time she had expressed reservations regarding chest tube placement as she was concerned about patient being in discomfort. Because of the concerns chest tube was withheld yesterday. Today morning on examination patient's blood work is mildly improving, urine output is appropriate. Patient is awake and alert. I discussed with him again regarding possible need of chest tube if he wants complete treatment versus possible hospice. He states for now he would like to try with chest tube placement. He has been made aware that there are potential risks of chest tube placement and it would be uncomfortable as well. Patient states he would like to try it for now. His wishes have been discussed with patient's daughter Ms. Lazaro. She has agreed for chest tube placement for now as well. Vitals/I&O/Wt Last Vital Signs Temp 98.2 F 02/29/20 08:00 Pulse 105 H 02/29/20 11:21 Resp 22 H 02/29/20 11:00 BP 109/80 02/29/20 11:00 Pulse Ox 94 02/29/20 11:21 02/28/20 02/29/20 02/29/20 22:59 06:59 14:59 Intake Total 50 / 100 710 / 710 Output Total 1150 / 1875 1200 / 3075 300 / 300 Balance -1100 / -1775 -1200 / -2975 410 / 410 Weight last 48 hrs Weight 78.018 kg Weight 0 g Physical Exam Narrative: EXAM NARRATIVE: General: No acute distress, AO x3, weak, lethargic HEENT: PERRLA, pupils bilaterally equal and reactive Chest: Bronchial breath sounds bilaterally, decreased air entry all over the lung field, more so in right lower zone, dull on percussion on the right lower zone, diffuse rhonchi all over the lung castellon. CVS: S1-S2 tachycardia, irregularly irregular, no murmurs, no gallops, no rubs Abdomen: Soft, nontender, no organomegaly, bowel sounds present Neuro: No focal deficits, no facial deformity, AO x3, power 5/5 in all limbs Data : 02/29/20 04:35 02/29/20 04:35 Micro: Microbiology 02/26/20 16:44 Urine Culture - Preliminary Urine,Clean Catch Enterococcus species A&P Assessment and plan (1) Sepsis with acute hypoxic respiratory failure: Status: Acute (2) Empyema: Status: Acute (3) UTI (urinary tract infection): Status: Acute Qualifiers: Encounter type: initial encounter Indwelling urinary catheter type: indwelling urethral catheter Urinary tract infection type: catheter-associated UTI Qualified Code(s): T83.511A - Infection and inflammatory reaction due to indwelling urethral catheter, initial encounter; N39.0 - Urinary tract infection, site not specified (4) End stage COPD: Status: Acute (5) CHF (congestive heart failure): Status: Acute Qualifiers: Heart failure chronicity: unspecified Heart failure type: unspecified Qualified Code(s): I50.9 - Heart failure, unspecified (6) Acute renal failure superimposed on chronic kidney disease: Status: Acute Qualifiers: Acute renal failure type: unspecified Chronic kidney disease stage: unspecified stage Qualified Code(s): N17.9 - Acute kidney failure, unspecified; N18.9 - Chronic kidney disease, unspecified (7) Acute hyperkalemia: Status: Acute (8) Dehydration: Status: Acute (9) Atrial fibrillation and flutter: Status: Acute (10) Normocytic anemia: Status: Acute (11) Diabetes mellitus type 2 in nonobese: Status: Acute (12) Hypertension: Status: Acute (13) DNR (do not resuscitate): Status: Acute (14) Pulmonary fibrosis: Status: Acute (15) Generalized weakness: Status: Acute Additional A&P Information Sepsis: Criteria met through tachycardia, hypotension, tachypnea. Acute hypoxic respiratory failure: Most likely secondary to right-sided empyema on top of end-stage COPD because of severe pulmonary fibrosis. It seems because of patient's poor mentation that he continues to aspirate both his feeds and expectoration causing him to have recurrent right lower lobe pneumonia which possibly has some postobstructive changes as well which is led him to have empyema. MRSA positive. For now we will continue with vancomycin and Zosyn both renally dosed, az ithromycin. COVID-19 is negative remove droplet precautions. Continue with contact precautions for MRSA. Patient is to get chest tube placement for empyema today in the afternoon with Dr. Jones. Oxygen supplementation keeping saturation over 90%. DuoNebs every 4 hours, budesonide twice daily, albuterol as needed. For now we will hold off on steroids but if patient worsens can start him on methylprednisolone. Hypercapnia on BiPAP. Has changed to settings as above. For now we will continue with the BiPAP. We will repeat ABG tomorrow morning. If patient's mentation continue to improve can plan to take BiPAP off during the day with BiPAP required overnight. History of diastolic heart failure: Last echocardiogram done in October shows an EF of 65% with diastolic heart failure with RVSP of 10.4 mmHg. Euvolemic to mild hypervolemia right now. Patient has a more than 2 L output in last 24 hours. Patient is net equal at movement. Continue with Lasix 40 mg IV daily. Monitor urine output every shift. Continue with Howard for now. Patient is DNR/DNI. UTI: Patient has chronic Howard. Urine culture growing enterococcus for now. Catheter last changed on January. Urinalysis consistent with UTI. Zosyn and vancomycin will help with the same. Last urine culture from October consistent with Enterococcus faecalis, stenotrophomonas. Atrial fibrillation: Mild tachycardia at present. No anticoagulation because of chronic anemia. Holding of Coreg because of low blood pressures. Loaded with digoxin 375 yesterday. Given the lower dose because of SHRADDHA. We will continue to monitor. Check digoxin levels. Acute on chronic kidney disease: Could be secondary dehydration on top of poor oral intake along with metolazone, spironolactone, hydrochlorothiazide, Bactrim use. Improving today. 1.9 today. Continue to monitor BMP daily. Medical reconciliation done for nephrotoxic drugs. Hyperkalemia: Resolved Discussed in detail with patient for possible need of dialysis if kidney f unctions continue to worsen or if hyperkalemia persists. Patient denies of dialysis and states he would not want any machines attached. Daughter was at bedside during the whole conversation. Hypertension: Goal blood pressures less than 140/90 mmHg. Keep mean arterial pressure was 65 mmHg. If required will start patient on Levophed. Hold off Coreg for borderline blood pressures. Type 2 diabetes mellitus: A1c 5.8. We will stop doing fingersticks. Check blood sugars daily with BMP. Anemia: Baseline hemoglobin around 9. Hemoglobin at baseline present. Most likely element of hemoconcentration as well. Start patient on IV iron 200 mg for 5 days. Day 3 today. DNR/DNI. Protonix 40 mg IV twice daily. Carb consistent cardiac diet. CODE STATUS: Discussed in detail regarding CODE STATUS with patient. Patient with hospice in the past but had rescinded recently. He continues to remain DNR/DNI. He states he would not want any kind of life support or machines attached to him. Even denies any dialysis if required. Patient's medical condition has been updated to his daughter. Patient remains with severely guarded prognosis. All the questions were answered. Overall at baseline patient's prognosis is extremely guarded. He has baseline end-stage COPD along with worsening renal functions at present and poor functionality at baseline. It was discussed with both patient and his daughter that we can try a chest tube as a last ditch effort and if he does not improve we will plan for further talks about hospice during the admission. Have consulted care coordination for safe discharge planning and possible hospice referral. Attestations Medical Necessity Statement*: Sepsis: Acute hypoxic respiratory failure, empyema, SHRADDHA Time Spent in Patient Care: Greater than 35 minutes (>than 50% of time spent in counselling and/or direct pt care on unit) . 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 [facility] Diagnoses Sepsis with acute hypoxic respiratory failure A41.9; R65.20; J96.01 Empyema J86.9 UTI (urinary tract infection) T83.511A; N39.0 Encounter type: initial encounter Indwelling urinary catheter type: indwelling urethral catheter Urinary tract infection type: catheter-associated UTI End stage COPD J44.9 CHF (congestive heart failure) I50.9 Heart failure chronicity: unspecified Heart failure type: unspecified Acute renal failure superimposed on chronic kidney disease N17.9; N18.9 Acute renal failure type: unspecified Chronic kidney disease stage: unspecified stage Acute hyperkalemia E87.5 Dehydration E86.0 Atrial fibrillation and flutter I48.91; I48.92 Normocytic anemia D64.9 Diabetes mellitus type 2 in nonobese E11.9 Hypertension I10 DNR (do not resuscitate) Z66 Pulmonary fibrosis J84.10 Generalized weakness R53.1
--- NOTE | 2020-02-29 11:39 | USCV_ITS ---
Sarthak Ortiz Age: 69 Gender: M : 1950 Exam Date: 02/29/2020 12:27 Ordering Phys: Gordy Monteiro MD Technologist: Ezekiel Bueno Exam Location: [facility] [place] Indication: RT ARM PAIN AND SWELLING HISTORY: Upper extremity swelling. PROCEDURES: Venous duplex imaging was performed in only the right upper extremity. The following venous structures were evaluated: internal jugular vein, subclavian vein, axillary vein, and brachial veins. In addition, the basilic vein and cephalic vein. FINDINGS: No evidence of deep vein thrombosis or superficial thrombophlebitis in the right upper extremity. CONCLUSIONS No evidence of venous thrombosis in the above-mentioned identifiable veins in the right upper extremity Dr Marcella Shahid MD [facility] (Electronically Signed) Final Date: 29 February 2020 18:37 S
[2020-02-29] MEDS: FUROsemide 10 mg/mL SDV 4mL 40 MG IVP (11:59)
--- NOTE | 2020-02-29 15:13 | PC.SOCIAL ---
IMM Updated Updated pt on Pg 2 IMM. No questions voiced. Provided pt a copy. Signed, dated, & timed copy in chart.
[2020-02-29] MEDS: fentaNYL 50 mcg/mL INJ 2mL 25 MCG IVP (17:43)
[2020-02-29] MEDS: midazolam 1 mg/mL INJ 2 mL IVP (17:44)
--- NOTE | 2020-02-29 17:55 | PC.PT ---
Nursing requests hold PT evaluation today; will follow
[2020-02-29 18:10] LABS: Digoxin 0.7 ng/mL (0.6-1.2)
[2020-03-01] VITALS (37 sets, daily range): BP systolic 94–138; BP diastolic 58–98; PULSE 92–125; RESP 14–35; TEMP 36.7–37.2; O2SAT 85–98
[2020-03-01] MEDS: piperacillin-tazobactam 3.375 GM in sodium chloride 0.9% (plus) 50 ML IV ×3 (01:20→17:44)
--- NOTE | 2020-03-01 02:55 | PC.NURSE ---
Appled Bipap at this time for increased work of breathing, accessory muscle use, and altered mental status. RT notified. Pt had been oriented to person and place. Now verbalizing needing a new truck while pointing outside in [place] and mumbling.
[2020-03-01] MEDS: ipratropium-albuterol 3 mL Neb INHALATION ×5 (03:32→21:10)
--- NOTE | 2020-03-01 07:22 | PC.NURSE ---
Bedside report given to BENI Mohan at this time.
[2020-03-01] MEDS: budesonide 0.5 mg/2 mL Neb INHALATION ×2 (07:27→21:10)
[2020-03-01] MEDS: pantoprazole 40 mg SDV IVP ×2 (08:02→20:36)
[2020-03-01] MEDS: azithromycin 500 MG in sodium chloride 0.9% 250 ML 250 MG IV (09:02)
--- NOTE | 2020-03-01 09:36 | PC.NURSE ---
Patient has been tachypnic and has had increased work of breathing this morning. Heart rate has risen into the 110-130 range and has stayed high. Patient is slightly confused at this time. Will notify physician and await further orders.
[2020-03-01] MEDS: metoprolol tartrate 25 mg Tablet 12.5 MG PO ×2 (10:31→17:43)
[2020-03-01] MEDS: FUROsemide 10 mg/mL SDV 4mL 40 MG IVP ×2 (10:31→22:56)
[2020-03-01] MEDS: iron sucrose 200 MG in sodium chloride 0.9% (100 ml) 100 ML IV (10:31)
[2020-03-01 10:47] LABS: Basophils % 0.5 %; Eosinophils # 0.1 10^3/uL (0.0-0.8); Eosinophils % 0.9 %; Hematocrit 26.2 % (42.0-52.0); Hemoglobin 7.5 g/dL (11.7-16.6); Lymphocytes # 0.5 10^3/uL (0.8-4.8); Lymphocytes % 5.5 %; Mean Corpuscular HGB Conc 28.6 g/dL (30.0-36.0); Mean Corpuscular Hemoglobin 25.5 pg (28.0-34.0); Mean Corpuscular Volume 89.1 fL (80-94); Mean Platelet Volume 9.9 fL (7.4-10.4); Monocytes # 1.3 10^3/uL (0.2-0.9); Monocytes % 15.4 %; Neutrophils # 6.28 10^3/uL (1.8-7.7); Neutrophils % 76.7 %; Nucleated Red Blood Cells # 0.1 /100WBC; Nucleated Red Blood Cells % 1.7 %; Platelet Count 212 10^3/cmm (130-400); Red Blood Count 2.94 10^6/uL (4.1-5.3); Red Cell Distribution Width 17.5 % (12.1-15.1); White Blood Count 8.2 10^3/uL (4.0-10.0)
--- NOTE | 2020-03-01 11:00 | PM.PN ---
Subjective Subjective: Interval history: No acute events overnight. Today morning on examination patient is on 2 L nasal cannula satting 95% looking tachypneic. He has been on and off on BiPAP last 24 hours. He was seen by pulmonology yesterday for possible chest tube placement because of empyema. Unfortunately on ultrasound patient had severely loculated fluid collection so chest tube placement was not possible. Patient has remained afebrile with acceptable mean arterial pressures. Vitals/I&O/Wt Last Vital Signs Temp 98.1 F 03/01/20 08:00 Pulse 125 H 03/01/20 10:00 Resp 35 H 03/01/20 10:00 BP 94/64 03/01/20 10:00 Pulse Ox 90 03/01/20 10:00 02/29/20 03/01/20 03/01/20 22:59 06:59 14:59 Intake Total 550 / 1620 750 / 750 Output Total 1100 / 2300 800 / 3100 200 / 200 Balance -550 / -680 -800 / -1480 550 / 550 Weight last 48 hrs Weight 80.195 kg Weight 78.018 kg Physical Exam Narrative: EXAM NARRATIVE: General: No acute distress, AO x3, weak, lethargic HEENT: PERRLA, pupils bilaterally equal and reactive Chest: Bronchial breath sounds bilaterally, decreased air entry all over the lung field, more so in right lower zone, dull on percussion on the right lower zone, diffuse rhonchi all over the lung castellon. CVS: S1-S2 tachycardia, irregularly irregular, no murmurs, no gallops, no rubs Abdomen: Soft, nontender, no organomegaly, bowel sounds present Neuro: No focal deficits, no facial deformity, AO x3, power 5/5 in all limbs Data : 03/01/20 10:20 02/29/20 04:35 Micro: Microbiology 02/26/20 16:44 Urine Culture - Final Urine,Clean Catch Enterococcus faecalis A&P Assessment and plan (1) Sepsis with acute hypoxic respiratory failure: Status: Acute (2) Empyema: Status: Acute (3) UTI (urinary tract infection): Status: Acute Qualifiers: Encounter type: initial encounter Indwelling urinary catheter type: indwelling urethral catheter Urinary tract infection type: catheter-associated UTI Qualified Code(s): T83.511A - Infection and inflammatory reaction due to indwelling urethral catheter, initial encounter; N39.0 - Urinary tract infection, site not specified (4) End stage COPD: Status: Acute (5) CHF (congestive heart failure): Status: Acute Qualifiers: Heart failure chronicity: unspecified Heart failure type: unspecified Qualified Code(s): I50.9 - Heart failure, unspecified (6) Acute renal failure superimposed on chronic kidney disease: Status: Acute Qualifiers: Acute renal failure type: unspecified Chronic kidney disease stage: unspecified stage Qualified Code(s): N17.9 - Acute kidney failure, unspecified; N18.9 - Chronic kidney disease, unspecified (7) Acute hyperkalemia: Status: Acute (8) Dehydration: Status: Acute (9) Atrial fibrillation and flutter: Status: Acute (10) Normocytic anemia: Status: Acute (11) Diabetes mellitus type 2 in nonobese: Status: Acute (12) Hypertension: Status: Acute (13) DNR (do not resuscitate): Status: Acute (14) Pulmonary fibrosis: Status: Acute (15) Generalized weakness: Status: Acute Additional A&P Information Sepsis: Criteria met through tachycardia, hypotension, tachypnea. Acute hypoxic respiratory failure: Most likely secondary to right-sided empyema on top of end-stage COPD because of severe pulmonary fibrosis. It seems because of patient's poor mentation that he continues to aspirate both his feeds and expectoration causing him to have recurrent right lower lobe pneumonia which possibly has some postobstructive changes as well which is led him to have empyema. MRSA positive. For now we will continue with vancomycin and Zosyn both renally dosed, azithromycin. Given the fact that now patient cannot get a chest tube placement for drainage of empyema patient would require a long course of antibiotics. Yesterday patient was seen by Dr. Jones and at that time ultrasound of the chest showed severely loculated fluid collection and chest tube placement is very difficult only option for decortication but unfortunately because of severe illness and end-stage COPD patient is not a good candidate for the same. Dr. Jones had spoken about this finding with patient's daughter Ms. Lazaro. Patient's MRSA is positive. Blood cultures have remained negative. We do not have any sputum culture. COVID-19 is negative remove droplet precautions. Continue with contact precautions for MRSA. Oxygen supplementation keeping saturation over 90%. DuoNebs every 4 hours, budesonide twice daily, albuterol as needed. For now we will hold off on steroids but if patient worsens can start him on methylprednisolone. Hypercapnia on BiPAP. Has changed to settings as above. For now we will continue with the BiPAP. We will repeat ABG tomorrow morning. If patient's mentation continue to improve can plan to take BiPAP off during the day with BiPAP required overnight. History of diastolic heart failure: Last echocardiogram done in October shows an EF of 65% with diastolic heart failure with RVSP of 10.4 mmHg. Euvolemic to mild hypervolemia right now. Patient has a more than 2 L output in last 24 hours. Patient is net equal at movement. Continue with Lasix 40 mg IV daily. Monitor urine output every shift. Continue with Howard for now. Patient is DNR/DNI. UTI: Patient has chronic Howard. Urine culture growing enterococcus for now. Catheter last changed on January. Urinalysis consistent with UTI. Zosyn and vancomycin will help with the same. Last urine culture from October consistent with Enterococcus faecalis, stenotrophomonas. Atrial fibrillation: Mild tachycardia at present. No anticoagulation because of chronic anemia. Holding of Coreg because of low blood pressures. Loaded with digoxin 375 yesterday. Given the lower dose because of SHRADDHA. We will continue to monitor. Check digoxin levels. Acute on chronic kidney disease: Could be secondary dehydration on top of poor oral intake along with metolazone, spironolactone, hydrochlorothiazide, Bactrim use. Improving today. 1.9 today. Continue to monitor BMP daily. Medical reconciliation done for nephrotoxic drugs. Hyperkalemia: Resolved Discussed in detail with patient for possible need of dialysis if kidney functions continue to worsen or if hyperkalemia persists. Patient denies of dialysis and states he would not want any machines attached. Daughter was at bedside during the whole conversation. Hypertension: Goal blood pressures less than 140/90 mmHg. Keep mean arterial pressure was 65 mmHg. If required will start patient on Levophed. Hold off Coreg for borderline blood pressures. Type 2 diabetes mellitus: A1c 5.8. We will stop doing fingersticks. Check blood sugars daily with BMP. Anemia: Baseline hemoglobin around 9. Hemoglobin at baseline present. Most likely element of hemoconcentration as well. Start patient on IV iron 200 mg for 5 days. Day 3 today. DNR/DNI. Protonix 40 mg IV twice daily. Carb consistent cardiac diet. CODE STATUS: Discussed in detail regarding CODE STATUS with patient. Patient with hospice in the past but had rescinded recently. He continues to remain DNR/DNI. He states he would not want any kind of life support or machines attached to him. Even denies any dialysis if required. Patient's medical condition has been updated to his daughter. Patient remains with severely guarded prognosis. All the questions were answered. Overall at baseline patient's prognosis is extremely guarded. He has baseline end-stage COPD along with worsening renal functions at present and poor functionality at baseline. I discussed all of the above regarding patient's baseline health, current illness, empyema which is not amenable to drain through chest tube with the patient and patient's daughter Ms. Lazaro. They both agreed for hospice services for now. We will consult care coordination. Patient is hospice for now. Attestations Medical Necessity Statement*: Empyema, acute hypoxic respiratory failure, end-stage COPD, UTI, sepsis, hospice Time Spent in Patient Care: Greater than 35 minutes (>than 50% of time spent in counselling and/or direct pt care on unit). 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 [facility] Diagnoses Sepsis with acute hypoxic respiratory failure A41.9; R65.20; J96.01 Empyema J86.9 UTI (urinary tract infection) T83.511A; N39.0 Encounter type: initial encounter Indwelling urinary catheter type: indwelling urethral catheter Urinary tract infection type: catheter-associated UTI End stage COPD J44.9 CHF (congestive heart failure) I50.9 Heart failure chronicity: unspecified Heart failure type: unspecified Acute renal failure superimposed on chronic kidney disease N17.9; N18.9 Acute renal failure type: unspecified Chronic kidney disease stage: unspecified stage Acute hyperkalemia E87.5 Dehydration E86.0 Atrial fibrillation and flutter I48.91; I48.92 Normocytic anemia D64.9 Diabetes mellitus type 2 in nonobese E11.9 Hypertension I10 DNR (do not resuscitate) Z66 Pulmonary fibrosis J84.10 Generalized weakness R53.1
[2020-03-01 11:26] LABS: Alanine Aminotransferase 47 U/L (0-41); Albumin Level 3.1 g/dL (3.5-5.2); Alkaline Phosphatase 65 IU/L (40-130); Anion Gap 11.9 (5-19); Aspartate Amino Transferase 28 U/L (0-40); Blood Urea Nitrogen 45 mg/dL (8-23); Calcium 7.8 mg/dL (8.5-10.5); Carbon Dioxide 34 mmol/L (22-29); Chloride 94 mmol/L (98-107); Globulin 3.8 g/dL (1.3-4.6); Glomerular Filtration Rate 54.9 mL/min (90-130); Glucose 130 mg/dL (65-115); Osmolality Calculated 284 mOsm/kg (285-295); Sodium 137 mmol/L (136-145); Total Bilirubin 0.4 mg/dL (0.15-1.2); Total Protein 6.9 g/dL (6.6-8.7)
[2020-03-01 11:35] LABS: Potassium 2.9 mmol/L (3.5-5.1)
[2020-03-01] MEDS: potassium chloride oral liq 20 mEq/15 mL UDC 40 MEQ PO (12:02)
[2020-03-01] MEDS: potassium chloride premix 40 MEQ/100 ML PREMIX 25 MEQ IV ×2 (12:03→17:54)
[2020-03-01] MEDS: morphine 4 mg/mL SDV 1 mL 1 MG IVP ×2 (14:22→21:59)
--- NOTE | 2020-03-01 15:33 | PC.PT ---
PT note; discharge physical therapy evaluation order, as patient going to hospice care at this time.
--- NOTE | 2020-03-01 15:51 | PC.NURSE ---
Patient angry when I offered the oral potassium stating I am not taking that shit! . I will contact the Dr and ask about switching to another 40meq of IV potassium.
[2020-03-01] MEDS: heparin 5,000 unit/mL INJ 1 mL 5000 UNIT SUBCUT (20:36)
--- NOTE | 2020-03-01 22:21 | PC.NURSE ---
Physician Notified Dr. Robbins updated on patient status. Tachypneic on Bipap, RR in 30's. Pt using neck accessory muscles to breath. RT having to increase FIO2 to 60% to maintain sats between 90-92. Pt is more lethargic. Reviewed todays progress note with Dr. Robbins, hospice is plan at discharge. Code status is DNR/DNI. No new orders received at this time, physician to come round on patient.
[2020-03-02] VITALS (12 sets, daily range): BP systolic 115–125; BP diastolic 77–101; PULSE 111–142; RESP 16–40; TEMP 36.6; O2SAT 81–94
[2020-03-02] MEDS: ipratropium-albuterol 3 mL Neb INHALATION ×2 (00:21→03:20)
[2020-03-02] MEDS: piperacillin-tazobactam 3.375 GM in sodium chloride 0.9% (plus) 50 ML IV (01:56)
[2020-03-02] MEDS: morphine 4 mg/mL SDV 1 mL 1 MG IVP (02:22)
--- NOTE | 2020-03-02 03:35 | PM.EVENT ---
Event Note Event Note: Visited with patient several times.. He has been confused. He has had increasing oxygen requirements on BiPAP. Extra dose of Lasix was given to see if this would improve his condition, and it did not. He continues to decompensate and heart rate is elevated. I called his daughter, to discuss his care as his primary physician here in the hospital is transition him to hospice. I believe at this time with his rapidly worsening condition it is appropriate to proceed with comfort care. Daughter agrees, but would like to have family in to see him prior to making this transition. I will try to make this happen as soon as possible. Comfort medications were ordered. We will continue BiPAP for now until family can come in to visit him.
--- NOTE | 2020-03-02 03:48 | PC.NURSE ---
Family Notified Daughter Iveth notified by Dr. Robbins of patient Decline. Pt is now on max bipap settings at 25/15 and fio2 of 100%. Pt eyes open but not responding to staff. Respiratory rate remains high in 30's. Heart rate now 130's. Use of accessory muscles to neck and shoulders. Decision made by family to allow for comfort measures to be initiated once their arrival. Approval received from GIA Nash to allow son Sherman Ortiz and daughter Iveth Rosales to both be present at this time.
[2020-03-02] MEDS: LORazepam 2 mg/mL INJ 1 mL IVP ×3 (04:24→13:12)
--- NOTE | 2020-03-02 04:24 | PC.NURSE ---
Family at bedside. Bipap withdrawn, applied nasal cannula at 2L. 2mg ativan IV given for air hunger/restlessness.
--- NOTE | 2020-03-02 05:07 | PC.NURSE ---
MTS Notified Jazmin Mina MTS Coordinator contacted at this time for DNR status and initiation of comfort care measures. Patient information given. Time of will need to be called. referral number given [phone].
[2020-03-02] MEDS: morphine 4 mg/mL SDV 1 mL 2 MG IVP ×2 (07:30→10:59)
--- NOTE | 2020-03-02 08:32 | PC.OT ---
Occupational Therapy evaluation canceled due to patient's status.
--- NOTE | 2020-03-02 09:55 | PC.SOCIAL ---
IMM completed on 03/02/2020 @ 0968
--- NOTE | 2020-03-02 12:13 | PM.DCS ---
Discharge Providers Date of Admission: 02/26/20 17:59 Date of Discharge: March 02, 2020 Attending Provider at Admission: Gordy Monteiro MD Attending Provider at Discharge: Gordy Monteiro MD Primary Care Provider: Avel Chacko MD Diagnoses at Discharge Discharge Diagnosis (1) Sepsis with acute hypoxic respiratory failure: Status: Acute (2) Empyema: Status: Acute (3) UTI (urinary tract infection): Status: Acute Qualifiers: Encounter type: initial encounter Indwelling urinary catheter type: indwelling urethral catheter Urinary tract infection type: catheter-associated UTI Qualified Code(s): T83.511A - Infection and inflammatory reaction due to indwelling urethral catheter, initial encounter; N39.0 - Urinary tract infection, site not specified (4) End stage COPD: Status: Acute (5) CHF (congestive heart failure): Status: Acute Qualifiers: Heart failure chronicity: unspecified Heart failure type: unspecified Qualified Code(s): I50.9 - Heart failure, unspecified (6) Acute renal failure superimposed on chronic kidney disease: Status: Acute Qualifiers: Acute renal failure type: unspecified Chronic kidney disease stage: unspecified stage Qualified Code(s): N17.9 - Acute kidney failure, unspecified; N18.9 - Chronic kidney disease, unspecified (7) Acute hyperkalemia: Status: Acute (8) Dehydration: Status: Acute (9) Atrial fibrillation and flutter: Status: Acute (10) Normocytic anemia: Status: Acute (11) Diabetes mellitus type 2 in nonobese: Status: Acute (12) Hypertension: Status: Acute (13) DNR (do not resuscitate): Status: Acute (14) Pulmonary fibrosis: Status: Acute (15) Generalized weakness: Status: Acute Reason for Visit Reason for Visit: WEAKNESS Physical Exam Narrative: EXAM NARRATIVE: General: No acute distress, AO x3, weak, lethargic HEENT: PERRLA, pupils bilaterally equal and reactive Chest: Bronchial breath sounds bilaterally, decreased air entry all over the lung field, more so in right lower zone, dull on percussion on the right lower zone, diffuse rhonchi all over the lung [place]. CVS: S1-S2 tachycardia, irregularly irregular, no murmurs, no gallops, no rubs Abdomen: Soft, nontender, no organomegaly, bowel sounds present Neuro: No focal deficits, no facial deformity, AO x3, power 5/5 in all limbs Discharge Data Data Completed and Pending: Completed Studies During Hospitalization Category Date Time Status CT chest abd pel wo con Routine Cat Scan 02/26/20 18:[address] head wo con* [id number] [id number] Urgent Cat Scan 02/26/20 15:34 Completed XR chest 1V lori ble [id number] Urgent Exams 02/26/20 15:34 [place] [id number] Routin e Ultrasound 02/27/20 11:18 [place] [id number] Routin e Ultrasound 02/29/20 11:39 Completed Pending at discharge Category Date Time Status Blood Culture Sta t Lab 02/26/20 16:15 Results Sputum Culture an d Gram Stain Stat Lab 02/26/20 18:36 Uncollected Vitals: Last Vital Signs Temp 97.8 F 03/02/20 00:00 Pulse 126 H 03/02/20 04:00 Resp 35 H 03/02/20 10:59 BP 125/98 03/02/20 04:00 Pulse Ox 81 L 03/02/20 10:59 Discharge Plan Discharge Patient Disposition: Home Condition: Fair Prescriptions: New morphine 20 mg/5 mL (4 mg/mL) solution 2.5 mg PO Q2H PRN (Reason: pain) Qty: 500 RF: 0 atropine [Isopto Atropine] 1 % Drops 4 drp sublingual Q2H PRN (Reason: Secretions) Qty: 30 RF: 0 Continued famotidine 20 mg Tablet 20 mg PO DAILY RF: 0 diphenhydramine HCl [Benadryl] 25 mg Capsule 25 mg PO TID PRN (Reason: Allergy Symptoms) RF: 0 lorazepam 0.5 mg tablet 0.5 mg PO Q6H PRN (Reason: Anxiety) RF: 0 docusate sodium 100 mg capsule 100 mg PO DAILY RF: 0 albuterol sulfate 90 mcg/actuation HFA aerosol inhaler 2 puff INHALATION Q6H PRN (Reason: Shortness Of Breath) RF: 0 ipratropium bromide 0.02 % solution 1 ml inhalation QID PRN (Reason: Shortness Of Breath) RF: 0 budesonide-formoterol 160-4.5 mcg/actuation HFA aerosol inhaler 1 puff INHALATION BID RF: 0 Incruse Ellipta 62.5 mcg/actuation blister with device 1 inh INHALATION DAILY RF: 0 Discontinued pantoprazole [Protonix] 40 mg Tablet,Delayed Release (Dr/Ec) 40 mg PO DAILY RF: 0 gabapentin 300 mg Capsule 300 mg PO BID RF: 0 potassium chloride 20 mEq Tablet Extended Release 20 meq PO BID RF: 0 sulfamethoxazole-trimethoprim 800-160 mg tablet 1 tab PO BID 7 Days Qty: 14 RF: 0 sennosides [senna] 8.6 mg tablet 8.6 mg PO BID RF: 0 sulfasalazine 500 mg Tablet 1 g PO BID RF: 0 spironolacton-hydrochlorothiaz 25-25 mg tablet 1 tab PO DAILY RF: 0 prednisone 20 mg Tablet 20 mg PO DAILY RF: 0 metolazone 5 mg tablet See Rx Instructions .ROUTE .COMPLEX RF: 0 carvedilol 3.125 mg tablet 3.125 mg PO BID RF: 0 hydroxychloroquine 200 mg tablet 200 mg PO BID RF: 0 furosemide 40 mg tablet See Rx Instructions .ROUTE .COMPLEX Qty: 45 RF: 0 potassium chloride [Klor-Con M20] 20 mEq tablet,ER particles/crystals 40 meq PO BIDWM Qty: 0 RF: 0 Referrals: Avel Chacko MD [Primary Care Provider] - Coding Level of Care Code 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 [facility] Fwd Diagnoses Sepsis with acute hypoxic respiratory failure A41.9; R65.20; J96.01 Empyema J86.9 UTI (urinary tract infection) T83.511A; N39.0 Encounter type: initial encounter Indwelling urinary catheter type: indwelling urethral catheter Urinary tract infection type: catheter-associated UTI End stage COPD J44.9 CHF (congestive heart failure) I50.9 Heart failure chronicity: unspecified Heart failure type: unspecified Acute renal failure superimposed on chronic kidney disease N17.9; N18.9 Acute renal failure type: unspecified Chronic kidney disease stage: unspecified stage Acute hyperkalemia E87.5 Dehydration E86.0 Atrial fibrillation and flutter I48.91; I48.92 Normocytic anemia D64.9 Diabetes mellitus type 2 in nonobese E11.9 Hypertension I10 DNR (do not resuscitate) Z66 Pulmonary fibrosis J84.10 Generalized weakness R53.1
--- NOTE | 2020-03-02 12:25 | P.PN_ITS ---
Subjective Subjective: Interval history: No events overnight. Overnight patient was requiring more oxygenation and was getting more lethargic so family decided to do comfort measures. On examination patient is comfortable. Family is at bedside. Vitals/I&O/Wt Last Vital Signs Temp 97.8 F 03/02/20 00:00 Pulse 126 H 03/02/20 04:00 Resp 35 H 03/02/20 10:59 BP 125/98 03/02/20 04:00 Pulse Ox 81 L 03/02/20 10:59 03/01/20 03/02/20 03/02/20 22:59 06:59 14:59 Intake Total 50 / 1000 Output Total 950 / 1950 500 / 2450 300 / 300 Balance -900 / -950 -500 / -1450 -300 / -300 Weight last 48 hrs Weight 80.195 kg Physical Exam Narrative: EXAM NARRATIVE: Not examined to make sure he remains comfortable. Data : 03/01/20 10:20 03/01/20 10:20 A&P Assessment and plan (1) Sepsis with acute hypoxic respiratory failure: Status: Acute (2) Empyema: Status: Acute (3) UTI (urinary tract infection): Status: Acute Qualifiers: Encounter type: initial encounter Indwelling urinary catheter type: indwelling urethral catheter Urinary tract infection type: catheter-associated UTI Qualified Code(s): T83.511A - Infection and inflammatory reaction due to i ndwelling urethral catheter, initial encounter; N39.0 - Urinary tract infection, site not specified (4) End stage COPD: Status: Acute (5) CHF (congestive heart failure): Status: Acute Qualifiers: Heart failure chronicity: unspecified Heart failure type: unspecified Qualified Code(s): I50.9 - Heart failure, unspecified (6) Acute renal failure superimposed on chronic kidney disease: Status: Acute Qualifiers: Acute renal failure type: unspecified Chronic kidney disease stage: unspecified stage Qualified Code(s): N17.9 - Acute kidney failure, unspecified; N18.9 - Chronic kidney disease, unspecified (7) Acute hyperkalemia: Status: Acute (8) Dehydration: Status: Acute (9) Atrial fibrillation and flutter: Status: Acute (10) Normocytic anemia: Status: Acute (11) Diabetes mellitus type 2 in nonobese: Status: Acute (12) Hypertension: Status: Acute (13) DNR (do not resuscitate): Status: Acute (14) Pulmonary fibrosis: Status: Acute (15) Generalized weakness: Status: Acute Additional A&P Information Overall patient has very poor baseline functionality mentation, capacity. He had rescinded hospice in the past. As patient came in with severe sepsis due to pneumonia, empyema which was not amenable to chest tube placement family had decided about hospice care yesterday. Overnight patient was requiring more oxygen to maintain his saturation so family was contacted and his D POA Ms. Lazaro and patient's son decide about making him comfort care. Continue with comfort measures. Patient has been accepted at SNF with comfort measures. But as his seems imminent we will hold off on discharge so that his family members can stay with him for today and he can remain comfortable. Attestations Medical Necessity Statement*: Comfort measures. Imminent . Time Spent in Patient Care: Greater than 35 minutes Discussing with patient's family regarding goals of care, Comfort measures. 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[facility] Diagnoses Sepsis with acute hypoxic respiratory failure A41.9; R65.20; J96.01 Empyema J86.9 UTI (urinary tract infection) T83.511A; N39.0 Encounter type: initial encounter Indwelling urinary catheter type: indwelling urethral catheter Urinary tract infection type: catheter-associated UTI End stage COPD J44.9 CHF (congestive heart failure) I50.9 Heart failure chronicity: unspecified Heart failure type: unspecified Acute renal failure superimposed on chronic kidney disease N17.9; N18.9 Acute renal failure type: unspecified Chronic kidney disease stage: unspecified stage Acute hyperkalemia E87.5 Dehydration E86.0 Atrial fibrillation and flutter I48.91; I48.92 Normocytic anemia D64.9 Diabetes mellitus type 2 in nonobese E11.9 Hypertension I10 DNR (do not resuscitate) Z66 Pulmonary fibrosis J84.10 Generalized weakness R53.1
--- NOTE | 2020-03-02 16:30 | P.DES_ITS ---
Discharge Providers DDS Date of Admission: 02/26/20 17:59 Date Summary Completed: 03/02/20 Attending Provider at Admission: Gordy Monteiro MD Attending Provider at Discharge: Gordy Monteiro MD Consults: Pulmonology: Dr. Jones Primary Care Provider: Avel Chacko MD DS Diagnoses Hospital Diagnoses (1) Sepsis with acute hypoxic respiratory failure: (2) Empyema: (3) UTI (urinary tract infection): Qualifiers: Encounter type: initial encounter Indwelling urinary catheter type: indwelling urethral catheter Urinary tract infection type: catheter-associated UTI Qualified Code(s): T83.511A - Infection and inflammatory reaction due to indwelling urethral catheter, initial encounter; N39.0 - Urinary tract infection, site not specified (4) End stage COPD: (5) CHF (congestive heart failure): Qualifiers: Heart failure chronicity: unspecified Heart failure type: unspecified Qualified Code(s): I50.9 - Heart failure, unspecified (6) Acute renal failure superimposed on chronic kidney disease: Qualifiers: Acute renal failure type: unspecified Chronic kidney disease stage: unspecified stage Qualified Code(s): N17.9 - Acute kidney failure, unspecified; N18.9 - Chronic kidney disease, unspecified (7) Acute hyperkalemia: (8) Dehydration: (9) Atrial fibrillation and flutter: (10) Normocytic anemia: (11) Diabetes mellitus type 2 in nonobese: (12) Hypertension: (13) DNR (do not resuscitate): (14) Pulmonary fibrosis: (15) Generalized weakness: Reason for Visit Reason for Visit: WEAKNESS Summary Summary: Summary: Sarthak Ortiz is a 69 year old male with past medical history of end-stage COPD on 6 L oxygen supplementation, rheumatoid arthritis, chronic anemia, chronic indwelling catheter, diastolic congestive heart failure, hospice candidate and before but rescinded in October with recent Howard catheter change earlier this week on who was admitted in the hospital on February 22 but left AMA in 3 hours. On previous admission he was admitted for community-acquired pneumonia and was discharged on doxycycline prednisone taper and was advised to follow-up with Dr. Resendiz for possible EGD given chronic anemia. CTA chest done at that time showed pulmonary fibrosis with bilateral pleural effusion and severe emphysematous changes. As per the daughter who is at bedside since patient left AMA he was doing fine but has been having decreased appetite and has been getting progressively weak. Patient lives by himself and has a home health who comes and checks up on him. Patient usually is ambulated to the house through his walker. As per the daughter it seems patient has not been getting out of his chair since they left him at home on Thursday stock raiser as he was still sitting in the same position and in the same clothes that he had left him. Patient states he has been having his medications regularly but has not been eating well. Patient states he has been having cough which is slightly more than his usual and has been producing phlegm which is thick, mucoid, yellowish in color but not foul-smelling or bloodstained. Patient has a chronic Hwoard and as per the patient the color of urine has not changed. He denies of having any dysuria. He denies of having any diarrhea, chest pain, headache, dizziness, palpitations, malaise, fever, subjective fever, myalgia, PND, orthopnea. Diagnostic in the ER revealed white count of 8.1, hemoglobin of 9.1, no left shift, ABG showing a pH of 7.1, PCO2 of 97.8, PO2 of 37.6, sodium of 133, potassium of 6.4, chloride of 90, carbon dioxide of 91, BUN of 77, creatinine of 2.6, AST ALT of 127/1 1 1, proBNP of 5151, lipase of 314, UA consistent with 2+ leuk esterase and numerous WBCs with rapid COVID-19 test negative Patient was admitted to the ICU for severe sepsis and hypoxic respiratory failure. Was started on broad-spectrum antibiotic and CT chest was done which is consistent with moderate pleural effusion on the right side consistent and concerning for empyema. Pulmonology was consulted and it was seen that on ultrasound of the chest patient had severely loculated pleural fluid which was not amenable to chest tube placement. Patient would most likely require pleurodesis but was not a good candidate because of his baseline functional capacity. Patient gross prognosis was discussed with the family Ms. Lazaro who is her DPOAE and daughter. Given his high oxygen requirement, baseline poor mentation and functional capacity along with end-stage COPD and ongoing empyema family decided to make him comfort care. He was started on comfort measures on night of March 02. Patient was comfortable and on March 02 at 1:30 PM. Additional Data: Advance directives?: No Discharge Plan Discharge Patient Disposition: Home Condition: Fair Prescriptions: New morphine 20 mg/5 mL (4 mg/mL) solution 2.5 mg PO Q2H PRN (Reason: pain) Qty: 500 RF: 0 atropine [Isopto Atropine] 1 % Drops 4 drp sublingual Q2H PRN (Reason: Secretions) Qty: 30 RF: 0 Continued famotidine 20 mg Tablet 20 mg PO DAILY RF: 0 diphenhydramine HCl [Benadryl] 25 mg Capsule 25 mg PO TID PRN (Reason: Allergy Symptoms) RF: 0 lorazepam 0.5 mg tablet 0.5 mg PO Q6H PRN (Reason: Anxiety) RF: 0 docusate sodium 100 mg capsule 100 mg PO DAILY RF: 0 albuterol sulfate 90 mcg/actuation HFA aerosol inhaler 2 puff INHALATION Q6H PRN (Reason: Shortness Of Breath) RF: 0 ipratropium bromide 0.02 % solution 1 ml inhalation QID PRN (Reason: Shortness Of Breath) RF: 0 budesonide-formoterol 160-4.5 mcg/actuation HFA aerosol inhaler 1 puff INHALATION BID RF: 0 Incruse Ellipta 62.5 mcg/actuation blister with device 1 inh INHALATION DAILY RF: 0 Discontinued pantoprazole [Protonix] 40 mg Tablet,Delayed Release (Dr/Ec) 40 mg PO DAILY RF: 0 gabapentin 300 mg Capsule 300 mg PO BID RF: 0 potassium chloride 20 mEq Tablet Extended Release 20 meq PO BID RF: 0 sulfamethoxazole-trimethoprim 800-160 mg tablet 1 tab PO BID 7 Days Qty: 14 RF: 0 sennosides [senna] 8.6 mg tablet 8.6 mg PO BID RF: 0 sulfasalazine 500 mg Tablet 1 g PO BID RF: 0 spironolacton-hydrochlorothiaz 25-25 mg tablet 1 tab PO DAILY RF: 0 prednisone 20 mg Tablet 20 mg PO DAILY RF: 0 metolazone 5 mg tablet See Rx Instructions .ROUTE .COMPLEX RF: 0 carvedilol 3.125 mg tablet 3.125 mg PO BID RF: 0 hydroxychloroquine 200 mg tablet 200 mg PO BID RF: 0 furosemide 40 mg tablet See Rx Instructions .ROUTE .COMPLEX Qty: 45 RF: 0 potassium chloride [Klor-Con M20] 20 mEq tablet,ER particles/crystals 40 meq PO BIDWM Qty: 0 RF: 0 Referrals: Avel Chacko MD [Primary Care Provider] - DS Attestations Time Spent in /Discharge Care*: greater than 30 min Quality - AMI: AMI present?: No Quality - Stroke: CVA present?: No Symptom Onset Unknown: No Quality - VTE: VTE present?: No Deep Vein Thrombosis/Pulmonary Embolism Present on Admission: No Coding Level of Care Code 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 [facility] Fwd Diagnoses Sepsis with acute hypoxic respiratory failure A41.9; R65.20; J96.01 Empyema J86.9 UTI (urinary tract infection) T83.511A; N39.0 Encounter type: initial encounter Indwelling urinary catheter type: indwelling urethral catheter Urinary tract infection type: catheter-associated UTI End stage COPD J44.9 CHF (congestive heart failure) I50.9 Heart failure chronicity: unspecified Heart failure type: unspecified Acute renal failure superimposed on chronic kidney disease N17.9; N18.9 Acute renal failure type: unspecified Chronic kidney disease stage: unspecified stage Acute hyperkalemia E87.5 Dehydration E86.0 Atrial fibrillation and flutter I48.91; I48.92 Normocytic anemia D64.9 Diabetes mellitus type 2 in nonobese E11.9 Hypertension I10 DNR (do not resuscitate) Z66 Pulmonary fibrosis J84.10 Generalized weakness R53.1
== END 2020-03-02 13:31 | disposition expired | DRG 871 ==
LOC: ER 17:47 → ICU 18:05 → MEDSURG 03-02 13:28
PROVIDERS: Admitting Provider Student in an Organized Health Care Education/Training Program; Emergency Provider Family Medicine; PCP Family Medicine; Visit Provider Student in an Organized Health Care Education/Training Program
DX: A41.9 Sepsis, unspecified organism (principal); J18.9 Pneumonia, unspecified organism; J96.01 Acute respiratory failure with hypoxia; J86.9 Pyothorax without fistula; N39.0 Urinary tract infection, site not specified; T83.511A Infection and inflammatory reaction due to indwelling urethral catheter, initial encounter; I13.0 Hypertensive heart and chronic kidney disease with heart failure and stage 1 through stage 4 chronic kidney disease, or unspecified chronic kidney disease; J44.0 Chronic obstructive pulmonary disease with (acute) lower respiratory infection; I48.92 Unspecified atrial flutter; N17.9 Acute kidney failure, unspecified; I50.32 Chronic diastolic (congestive) heart failure; Z66 Do not resuscitate; Z51.5 Encounter for palliative care; J84.10 Pulmonary fibrosis, unspecified; I48.91 Unspecified atrial fibrillation; R65.20 Severe sepsis without septic shock; E11.22 Type 2 diabetes mellitus with diabetic chronic kidney disease; D64.9 Anemia, unspecified; E87.5 Hyperkalemia; E86.0 Dehydration; Y82.8 Other medical devices associated with adverse incidents; Y92.009 Unspecified place in unspecified non-institutional (private) residence as the place of occurrence of the external cause; M06.9 Rheumatoid arthritis, unspecified; Z86.73 Personal history of transient ischemic attack (TIA), and cerebral infarction without residual deficits; G47.33 Obstructive sleep apnea (adult) (pediatric); Z87.891 Personal history of nicotine dependence; Z20.828 Contact with and (suspected) exposure to other viral communicable diseases
CPT/HCPCS: 12345; 36415; 36416; 36600; 51702; 70450; 71045; 71250; 74176; 80051; 80053; 80061; 80162; 80202; 81001; 81003; 82310; 82436; 82803; 82810; 82962; 83036; 83540; 83550; 83605; 83690; 83735; 83880; 83970; 83986; 84100; 84132; 84133; 84145; 84300; 84443; 84484; 85025; 85378; 87040; 87077; 87086; 87186; 87426; 87449; 87635; 87641; 90471; 90732; 93005; 93970; 93971; 94640; 94660; 94664; 96361; 96365; 96367; 96372; 96375; 99283; 99284; 99285; C9113; G0378; J0456; J0696; J1160; J1644; J1756; J1815; J1940; J1956; J2060; J2250; J2270; J2543; J3010; J3370; J3480; J3490; J7030; J7050; J7626